=== PATIENT | female | born 1945 | race Caucasian/White ===

== ENCOUNTER → 2019-08-06 15:09 | Outpatient (CLI) | payer MEDICARE, OTHER, SELFPAY ==
--- NOTE | ~2019-08-06 | MM_ITS ---
EXAMINATION: MM screening [facility] BI w enma HISTORY: Screening mammogram TECHNIQUE: Craniocaudal and mediolateral oblique 3-D tomosynthesis images were obtained and synthetic 2-D images were generated. CAD analysis was submitted and interpreted. COMPARISON: Comparison to multiple prior studies sequentially, with oldest reviewed study dated 10/2014. BREAST PARENCHYMAL COMPOSITION: The breasts are heterogeneously dense, which may obscure small masses . FINDINGS: There is no evidence of suspicious mass, calcification, or architectural distortion to sugg est malignancy in either breast. There has been no suspicious interval change. IMPRESSION: 1. No mammographic evidence of malignancy. 2. Recommend routine screening mammography in one year. BI-RADS Category 1: Negative Reviewed, dictated and finalized at location A.
== END ==
PROVIDERS: PCP Internal Medicine; Visit Provider Internal Medicine
DX: Z12.31 Encounter for screening mammogram for malignant neoplasm of breast (principal)
CPT/HCPCS: 77063; 77067

== ENCOUNTER → 2020-07-29 02:24 | Outpatient (CLI) | payer MEDICARE, OTHER, SELFPAY ==
[2020-07-29 22:46] LABS: SARS-CoV-2 RNA PCR Negative
== END ==
PROVIDERS: PCP Internal Medicine; Visit Provider Internal Medicine Gastroenterology
DX: Z01.812 Encounter for preprocedural laboratory examination (principal); Z20.822 Contact with and (suspected) exposure to COVID-19
CPT/HCPCS: C9803; U0003; U0005

== ENCOUNTER 2020-08-01 00:49 | Day surgery (SDC) | payer MEDICARE, OTHER, SELFPAY ==
[2020-07-21 12:05] VITALS: BMI 22.8
[2020-08-01 08:34] VITALS: BP 161/70; PULSE 64; RESP 20; TEMP 36.6; O2SAT 100; BMI 23.3
[2020-08-01] MEDS: LACTATED RINGERS 1,000 ML 150 ML IV CONT (08:48)
--- NOTE | 2020-08-01 09:14 | WPDANESEPPF ---
Anes - Initial Pre Proc Eval Procedure: Operation Date: 08/01/20 10:00 Proposed Procedures p Screening Colonoscopy - Parminder Buckley MD Date/Time: 08/01/20 09:14 Surgeon: Parminder Buckley MD Pre Op Diagnosis: neoplasm screening Patient Data Age: 75 Gender: F Height: 5 ft 9 in Weight: 71.5 kg Last Vital Signs Temp 36.6 C 08/01/20 08:34 Pulse 64 08/01/20 08:34 Resp 20 08/01/20 08:34 BP 161/70 H 08/01/20 08:34 Pulse Ox 100 08/01/20 08:34 Allergies Allergy/AdvReac Type Severity Reaction Status Date / Time latex Allergy Unknown Skin Verified 06/30/20 10:30 breaks out procaine AdvReac Mild Tachycardia Verified 07/21/20 12:21 Home Medications Medication Instructions Recorded Confirmed Type cetirizine 5 mg-pseudoephedrine ER 1 tablet PO Q12H 09/17/19 06/30/20 History 120 mg tablet,extended release,12hr cholecalciferol (vitamin D3) 125 125 mcg PO DAILY 09/17/19 07/21/20 History mcg (5,000 unit) capsule melatonin 10 mg capsule 10 mg PO .QHS cap 12/03/19 07/21/20 History acetaminophen 325 mg capsule 325 mg PO Q6H PRN 04/03/20 07/21/20 History ibuprofen 200 mg capsule 200 mg PO Q6H PRN 04/03/20 07/21/20 History benazepril 20 1 tablet PO DAILY #90 tablet 06/09/20 07/21/20 Rx mg-hydrochlorothiazide 25 mg tablet famotidine 20 mg tablet 20 mg PO DAILY #30 tablet 06/30/20 07/21/20 Rx gabapentin 300 mg capsule 300 mg PO DAILY cap 06/30/20 07/21/20 History sodium,potassium,mag sulfates 17.5 See Rx Instructions PO .COMPLEX 07/04/20 Rx gram-3.13 gram-1.6 gram oral soln #354 ml Patient hx anesthesia problems: none Family hx anesthesia problems: none PMFSH Past Medical History Medical History Allergies Anemia Chicken pox Constipation Hernia Rectal History of stillbirth Hypertension Melanoma Multiple sclerosis Osteoarthritis Prediabetes Sciatica Vitamin deficiency Surgical History Surgical History H/O: hysterectomy Previous back surgery Spinal decompression surgery 04/2019 Family History Family History Father Hypertension Mother Family history of malignant neoplasm of ovary Sibling H/O gastric bypass Social History Social History Smoking status: Never smoker Second hand tobacco smoke exposure: No Alcohol intake: current Substance use: never Gender identity (if verbalized by the patient): Female Anes - Eval Final PreProcedure Day of Procedure 08/01/20 09:14 Patient weight: normal Heart: regular rate and rhythm Lungs: clear to auscultation Airway: Mallampati scale class II Neurological: alert and oriented Last oral intake: >/= 8 hours ASA classification: III Emergent: no Anesthetic plan: proceed Anesthesia type and monitoring: general GIVS and standard monitoring Informed Consent: The patient's anesthetic plan and its attendant risks and benefits were discussed with the patient/family/POA. Questions were solicited and answers provided to the satisfaction of the patient/family/POA.
--- NOTE | 2020-08-01 09:37 | PM.HPGS ---
History of Present Illness History of Present Illness Consent: Risks, benefits, and alternatives have been discussed and questions answered. Patient agrees to proceed with procedure. Chief complaint: neoplasm screening Narrative: June Razo is a 75 year old female here for screening colonoscopy, last one 10 years ago. Also constipation but almost resolved after she discontinued gabapentin. Review of Systems Constitutional: Constitutional: Denies headache(s) and Denies weakness Eyes: Eyes: Denies blurry vision ENT: Reports Normal hearing present, Denies headache(s) and Denies neck pain Cardiovascular: Cardiovascular: Denies chest pain and Denies dyspnea Respiratory: Respiratory: Denies dyspnea Gastrointestinal: Gastrointestinal: Reports no additional gastrointestinal complaints Genitourinary: Genitourinary: Denies dysuria Musculoskeletal: Musculoskeletal: Denies neck pain Integumentary/Breasts: Skin/Breast: Denies dry skin Neurologic: Reports Normal hearing present, Denies headache(s) and Denies weakness Psychiatric: Psychiatric: Denies anxiety Endocrine: Endocrine: Denies change in body appearance Hematologic/Lymphatic: Hematologic/Lymphatic: Denies easy bleeding Allergic/Immunologic: Allergic/Immunologic: Denies urticaria PMFSH Past Medical History Medical History Allergies Anemia Chicken pox Constipation Hernia Rectal History of stillbirth Hypertension Melanoma Multiple sclerosis Osteoarthritis Prediabetes Sciatica Vitamin deficiency Surgical History Surgical History H/O: hysterectomy Previous back surgery Spinal decompression surgery 04/2019 Family History Family History Father Hypertension Mother Family history of malignant neoplasm of ovary Sibling H/O gastric bypass Social History Social History Smoking status: Never smoker Second hand tobacco smoke exposure: No Alcohol intake: current Substance use: never Gender identity (if verbalized by the patient): Female Meds Home Medications and Allergies Home Medications Medication Instructions Recorded Confirmed Type cetirizine 5 mg-pseudoephedrine ER 1 tablet PO Q12H 09/17/19 06/30/20 History 120 mg tablet,extended release,12hr cholecalciferol (vitamin D3) 125 125 mcg PO DAILY 09/17/19 07/21/20 History mcg (5,000 unit) capsule melatonin 10 mg capsule 10 mg PO .QHS cap 12/03/19 07/21/20 History acetaminophen 325 mg capsule 325 mg PO Q6H PRN 04/03/20 07/21/20 History ibuprofen 200 mg capsule 200 mg PO Q6H PRN 04/03/20 07/21/20 History benazepril 20 1 tablet PO DAILY #90 tablet 06/09/20 07/21/20 Rx mg-hydrochlorothiazide 25 mg tablet famotidine 20 mg tablet 20 mg PO DAILY #30 tablet 06/30/20 07/21/20 Rx gabapentin 300 mg capsule 300 mg PO DAILY cap 06/30/20 07/21/20 History sodium,potassium,mag sulfates 17.5 See Rx Instructions PO .COMPLEX 07/04/20 Rx gram-3.13 gram-1.6 gram oral soln #354 ml Allergies Allergy/AdvReac Type Severity Reaction Status Date / Time latex Allergy Unknown Skin Verified 06/30/20 10:30 breaks out procaine AdvReac Mild Tachycardia Verified 07/21/20 12:21 Vital Signs Vital Signs - 24 hr 08/01/20 08:34 Temperature 97.8 F Pulse Rate 64 Respiratory Rate 20 Blood Pressure 161/70 H Pulse Oximetry 100 Exam Const: General: comfortable and no acute distress HENMT: General nose exam: Normal nares present Eyes: General: appearance normal, both eyes and all related structures Neck: Neck: no JVD Resp: Auscultation: clear to auscultation bilaterally Cardio: Rate: regular rate Rhythm: regular rhythm GI: Inspection: non-distended GI Palp: Yes Soft to palpation Skin: General skin exam: normal color Neuro: General: gait n
[2020-08-01 10:16] VITALS: BP 123/68; PULSE 57; RESP 20; O2SAT 100
[2020-08-01 10:26] VITALS: BP 132/78; PULSE 58; RESP 13; O2SAT 100
[2020-08-01 10:36] VITALS: BP 153/76; PULSE 50; RESP 14; O2SAT 100
== END 2020-08-01 10:44 | disposition home or self-care (01) ==
PROVIDERS: PCP Internal Medicine; Visit Provider Internal Medicine Gastroenterology
PROC: 0DJD8ZZ Inspection of Lower Intestinal Tract, Via Natural or Artificial Opening Endoscopic (ICD-10-PCS; CPT 45378; principal; 2020-08-01 10:00)
DX: Z12.11 Encounter for screening for malignant neoplasm of colon (principal); D12.0 Benign neoplasm of cecum; K63.5 Polyp of colon; K63.89 Other specified diseases of intestine; K64.8 Other hemorrhoids; I10 Essential (primary) hypertension; G35 Multiple sclerosis; R73.03 Prediabetes; M19.90 Unspecified osteoarthritis, unspecified site
CPT/HCPCS: 45385; 88305; J2704; J7120

== ENCOUNTER → 2020-08-19 12:51 | Outpatient (CLI) | payer MEDICARE, OTHER, SELFPAY ==
--- NOTE | ~2020-08-19 | MM_ITS ---
EXAMINATION: MM screening [facility] BI w enma HISTORY: Screening mammogram TECHNIQUE: Craniocaudal and mediolateral oblique 3-D tomosynthesis images were obtained and synthetic 2-D images were generated. CAD analysis was submitted and interpreted. COMPARISON: 08/06/2019, 04/18/2018, 10/06/2016, 09/22/2016 BREAST PARENCHYMAL COMPOSITION: There are scattered areas of fibroglandular density. FINDINGS: There is no evidence of suspicious mass, calcification, or architectural distortion to sugg est malignancy in either breast. There has been no suspicious interval change. IMPRESSION: 1. No mammographic evidence of malignancy. 2. Recommend routine screening mammography in one year. BI-RADS Category 1: Negative Reviewed, dictated and finalized at location A.
== END ==
PROVIDERS: PCP Internal Medicine; Visit Provider Student in an Organized Health Care Education/Training Program
DX: Z12.31 Encounter for screening mammogram for malignant neoplasm of breast (principal)
CPT/HCPCS: 77063; 77067

== ENCOUNTER 2020-12-13 10:07 | Emergency (ER) | payer MEDICARE, OTHER, SELFPAY ==
--- NOTE | 2020-12-13 10:13 | ED.FEMALEGU ---
HPI - Female Genitourinary General Chief complaint: Urogenital-Female Stated complaint: UTI Source: patient and RN notes reviewed Mode of arrival: ambulatory History of Present Illness HPI Narrative: This is a 75-year-old male that presented herself to urgent care today with complaints of painful urination. According to patient for the last 3 to 4 days she has been having painful urination she does have a history of urinary tract infections. According to patient due to her MS she is more prone to having UTIs. The patient denies Suprapubic tenderness, hematuria thank you, vaginal discharge SOB, CP, palpitation, extremity numbness, lightheadedness, dizziness, constipation, diarrhea, chills, or fever. MD elicited complaint: UTI Related Data Home Medications Medication Instructions Recorded Confirmed cetirizine 5 mg-pseudoephedrine ER 1 tablet PO Q12H 09/17/19 10/14/20 120 mg tablet,extended release,12hr cholecalciferol (vitamin D3) 125 125 mcg PO DAILY 09/17/19 10/14/20 mcg (5,000 unit) capsule melatonin 10 mg capsule 10 mg PO .QHS cap 12/03/19 10/14/20 acetaminophen 325 mg capsule 325 mg PO Q6H PRN 04/03/20 10/14/20 baclofen 20 mg tablet 20 mg PO DAILY 10/14/20 10/14/20 Allergies Allergy/AdvReac Type Severity Reaction Status Date / Time latex Allergy Mild Skin Verified 12/13/20 10:12 breaks out procaine AdvReac Severe Tachycardia Verified 12/13/20 10:12 Review of Systems Review of Systems: Narrative: A 14 organ system Review of Systems was performed and pertinent positives included in the HPI, otherwise remaining ROS is negative. All systems reviewed & are unremarkable except as noted in HPI and below PMFSH Past Medical History Medical History Allergies Anemia Chicken pox Colon cancer screening Constipation Hernia Rectal History of stillbirth Hypertension Melanoma Multiple sclerosis Osteoarthritis Prediabetes Sciatica Vitamin deficiency Surgical History Surgical History H/O: hysterectomy Previous back surgery Spinal decompression surgery 04/2019 Family History Family History Father Hypertension Mother Family history of malignant neoplasm of ovary Sibling H/O gastric bypass Social History Social History Smoking status: Never smoker Second hand tobacco smoke exposure: No Alcohol intake: current Alcohol use details: occasionally Substance use: never Gender identity (if verbalized by the patient): Female Exam Narrative: Exam Narrative: GENERAL: This is a well-nourished, well-developed patient, in no apparent distress. HEAD: normocephalic, atraumatic. EYES: PERRL. Sclera clear/white. Vision is grossly intact. EARS: External ears normal, auditory canals clear and without drainage, TMs normal without perforation. Hearing grossly intact. NOSE: External nose normal with no obvious nasal discharge, nares without redness, no rhinorrhea. THROAT: Mucous membranes moist, posterior pharynx clear. NECK: Neck supple, non-tender without lymphadenopathy, masses or thyromegaly. CARDIOVASCULAR: Regular rate and rhythm without murmurs, gallops, or rubs. RESPIRATORY: Clear to auscultation. Breath sounds equal bilaterally. No wheezes, rales, or rhonchi. GASTROINTESTINAL: Abdomen soft, non-tender, nondistended. Bowel sounds are active. No hepato-splenomegaly, or palpable masses. No guarding. SKIN: warm, intact with no suspicious lesions or rash, good texture and turgor. NEURO: awake, alert, and oriented to person, place and time. There were no obvious focal neurologic abnormalities. Steady gait EXTREMITIES: Normal range of motion. No edema. No calf tenderness. Negative Homans sign bilaterally. BACK: Nontender without deformity or crepitance. No flank tenderness. Course Cou
[2020-12-13 10:17] VITALS: BP 167/74; PULSE 56; RESP 15; TEMP 36.6; O2SAT 100
== END 2020-12-13 10:45 | disposition home or self-care (01) ==
PROVIDERS: Emergency Provider Nurse Practitioner; PCP Internal Medicine
DX: N39.0 Urinary tract infection, site not specified (principal); D64.9 Anemia, unspecified; I10 Essential (primary) hypertension; M19.90 Unspecified osteoarthritis, unspecified site; R73.03 Prediabetes; G35 Multiple sclerosis; Z85.820 Personal history of malignant melanoma of skin
CPT/HCPCS: 81003; 87086; 87147; 87181; 87186; 99213; G0463

== ENCOUNTER 2020-12-15 15:55 | Inpatient (IN) | payer MEDICARE, OTHER, SELFPAY ==
--- NOTE | ~2020-12-15 | US_ITS ---
EXAMINATION: US abdomen limited DATE: 12/16/2020 14:17 INDICATION: Abnormal liver function tests TECHNIQUE: Multiple grayscale and Doppler ultrasound images of the abdomen were obtained. COMPARISON: None FINDINGS: The pancreatic head and body are normal in appearance. The pancreatic tail is not visualized. The vi sualized proximal to mid aorta and inferior vena cava are normal. Liver has normal echogenicity and c ontour, with a smooth surface. No liver lesion identified. No intrahepatic biliary duct dilation susp ected. Portal venous flow was seen in the hepatopetal, normal direction and has normal Doppler wavefo rm. There are multiple shadowing gallstones within the otherwise normal-appearing gallbladder with no dilation or abnormal gallbladder wall thickening. Sonographic Rendon sign was reported as negative b y the executive pilot.The common bile duct measures 4 mm in diameter tapering in the distal duct with no evident choledocholithiasis. IMPRESSION: 1. Cholelithiasis with no findings to suggest acute cholecystitis 2. Otherwise normal right upper quadrant ultrasound with no intra or extra hepatic biliary ductal dil ation. Reviewed, dictated and finalized at location A. IMPRESSION: 1. Cholelithiasis with no findings to suggest acute cholecystitis 2. Otherwise normal right upper quadrant ultrasound with no intra or extra hepa tic biliary ductal dilation.
[2020-12-15 15:59] VITALS: BP 199/91; PULSE 80; RESP 18; TEMP 38.1; O2SAT 100
[2020-12-15 16:15] LABS: Basophils Percent Auto 0.6 % (0.2-1.2); Eosinophils Percent Auto 0.3 % (0-4.4); Hematocrit 34.4 % (37.0-47.0); Hemoglobin 11.5 g/dL (12.0-15.0); Immature Granulocyte Absolute 0.02 K/mm3 (0.00-0.031); Immature Granulocyte Percent A 0.6 % (0-0.5); Lymphocytes Absolute Auto 0.19 K/mm3 (0.9-3.2); Lymphocytes Percent Auto 5.5 % (18.3-44.2); Mean Corpuscular HGB Conc 33.4 g/dl (32-36); Mean Corpuscular Volume 89.8 fl (80-100); Monocytes Absolute Auto 0.2 K/mm3 (0.1-0.6); Monocytes Percent Auto 4.4 % (2.6-8.5); Neutrophils Percent Auto 88.6 % (45.5-73.1); Platelet Count Result 154 k/mm3 (150-375); Red Blood Count 3.83 M/mm3 (4.2-5.4); Red Cell Distribution Width 12.2 % (11.5-14.5); White Blood Count 3.4 K/mm3 (4.5-10.0)
[2020-12-15 16:25] LABS: Alanine Aminotransferase 209 U/L (4-35); Alkaline Phosphatase 224 U/L (38-126); Anion Gap 9 mmol/L (8-16); Aspartate Amino Transferase 292 U/L (14-36); Bilirubin,Total 0.6 mg/dL (0.2-1.3); Blood Urea Nitrogen 23 mg/dL (7-17); Calcium 8.6 mg/dL (8.4-10.2); Carbon Dioxide 25 mmol/L (22-30); Chloride 89 mmol/L (98-107); Estimated CRCL calculation 45 ml/min; Estimated Glomerular Filt Rate 54; Glucose 112 mg/dL (65-110); Sodium 123 mmol/L (137-145)
[2020-12-15 16:35] LABS: Add Urine Microscopic? YES; Appearance Urine Clear (Clear); Bacteria Urine 1+ /hpf; Bilirubin Urine Negative (Negative); Blood Urine Negative (Negative); Color Urine Amber (Yellow); Glucose Urine UA Negative (Negative); Ketones Urine Negative (Negative); Leukocyte Esterase Ur 2+ LEU/UL (Negative); Mucus Urine Rare /lpf; Nitrate Urine Positive (Negative); Protein Urine 1+ mg/dL (Negative); Specific Grav Ur 1.017 (1.001-1.035); Squamous Epithelial Cell Urine Many /hpf (Few); WBC Urine 31-50 /hpf
[2020-12-15 16:46] LABS: Potassium 3.9 mmol/L (3.4-5.0)
[2020-12-15] MEDS: SODIUM CHLORIDE 0.9% IV 1,000 ML 999 ML IV CONT (21:03)
--- NOTE | 2020-12-15 21:34 | ED.FEVER ---
HPI - Fever General Chief Complaint: Urogenital-Female Stated Complaint: UTI Time Seen by Provider: 12/15/20 20:26 History of Present Illness HPI Narrative: Patient is a 75-year-old female who presents ER with fever and weakness and fatigue. Ongoing for last 3 to 4 days. Was diagnosed with a urinary tract infection and prescribed nitrofurantoin. Patient has not improving. Patient is reporting mild frontal headache as well as some nausea. Related Data Home Medications Medication Instructions Recorded Confirmed cetirizine 5 mg-pseudoephedrine ER 1 tablet PO Q12H 09/17/19 12/15/20 120 mg tablet,extended release,12hr cholecalciferol (vitamin D3) 125 125 mcg PO DAILY 09/17/19 12/15/20 mcg (5,000 unit) capsule melatonin 10 mg capsule 10 mg PO .QHS cap 12/03/19 12/15/20 acetaminophen 325 mg capsule 325 mg PO Q6H PRN 04/03/20 12/15/20 baclofen 20 mg tablet 20 mg PO DAILY 10/14/20 12/15/20 Allergies Allergy/AdvReac Type Severity Reaction Status Date / Time latex Allergy Mild Skin Verified 12/15/20 20:38 breaks out procaine AdvReac Severe Tachycardia Verified 12/15/20 20:38 Review of Systems Review of Systems: All systems reviewed & are unremarkable except as noted in HPI and below Constitutional: Constitutional: Reports chills, Reports fatigue and Reports fever(s) ENT: Denies nasal congestion and Denies sore throat Gastrointestinal: Gastrointestinal: Denies abdominal pain, Reports nausea and Denies vomiting Genitourinary: Genitourinary: Reports nocturia, Reports dysuria and Denies flank pain PMFSH Past Medical History Medical History Allergies Anemia Chicken pox Colon cancer screening Constipation Hernia Rectal History of stillbirth Hypertension Melanoma Multiple sclerosis Osteoarthritis Prediabetes Sciatica Vitamin deficiency Surgical History Surgical History H/O: hysterectomy Previous back surgery Spinal decompression surgery 04/2019 Family History Family History Father Hypertension Mother Family history of malignant neoplasm of ovary Sibling H/O gastric bypass Social History Social History (Reviewed 10/14/20 @ 11:03 by Alice Osullivan [facility] Smoking status: Never smoker Second hand tobacco smoke exposure: No Alcohol intake: current Alcohol use details: occasionally Substance use: never Gender identity (if verbalized by the patient): Female Exam Narrative: Exam Narrative: GENERAL: Well-appearing, well-nourished, and in no acute distress. HEAD: Normocephalic, atraumatic. EYES: PERRL and EOMI. CHEST: Clear to auscultation. No respiratory distress. HEART: Regular rate and rhythm. Normal peripheral pulses. ABDOMEN: Soft, nontender, nondistended. No CVA tenderness EXTREMITIES: Normal range of motion. No edema. SKIN: Warm, dry, no rash. NEURO: Alert and oriented x3. PSYCH: Normal mood and affect. Course TRAINING ASSISTANT/PA Physician Supervision Patient started on IV vancomycin given urine culture showing Enterococcus species sensitive only to Macrobid, vancomycin, and ampicillin. Patient is having a mild frontal headache so she will be given Zofran she is also nauseated will receive some Zofran. Blood pressure down to 172/88 without intervention. Vital Signs Vital signs: Vital Signs Temperature 100.5 F H 12/15/20 15:59 Pulse Rate 80 12/15/20 15:59 Respiratory Rate 18 12/15/20 15:59 Blood Pressure 199/91 H 12/15/20 15:59 Pulse Oximetry 100 12/15/20 15:59 Temperature 100.5 F H 12/15/20 15:59 Pulse Rate 88 12/15/20 21:37 Respiratory Rate 20 12/15/20 21:37 Blood Pressure 172/88 H 12/15/20 21:37 Pulse Oximetry 99 12/15/20 21:37 MDM - Fever Lab Data Result diagrams: 12/15/20 16:06 12/15/20 16:06 Labs: Lab Results 12/15/20 12/15/20
[2020-12-15 21:37] VITALS: BP 172/88; PULSE 88; RESP 20; O2SAT 99
[2020-12-15] MEDS: ONDANSETRON INJ 4 MG/2 ML VIAL IV PUSH (22:11)
--- NOTE | 2020-12-15 22:40 | PM.IMHP ---
H&P: HPI History of Present Illness Date/Time: 12/15/20 22:40 Chief Complaint: dysuria Narrative: this is a 75-year-old female with past medical history significant for hypertension, GERD. patient recently went to the urgent care due to pain and burning sensation with urination this started about 5 days ago on but did not go to urgent care until Tuesday she was found to have a urinary tract infection and sent home with antibiotics however patient comes back today to emergency room due to fevers chills worsening dysuria poor appetite some nausea but no vomiting repeat urinalysis showed great number of wbc's in the urine and a urine culture from prior urinalysis has grown enterococci. Patient denies any diarrhea any vomiting has pain and discomfort in the pelvic area. Preliminary work up was significant for abnormal LFTs and alk phos as well. Patient states that she has been in her usual state of health prior to these. Review of Systems Review of Systems: Narrative: fevers chills pain a burning with urination Constitutional: Constitutional: Reports chills, Reports fever(s), Denies night sweats, Reports poor appetite and Denies weakness Eyes: Eyes: Denies change in vision ENT: Denies dysphagia, Denies vertigo, Denies dizziness, Denies nasal congestion, Denies nasal discharge, Denies nasal obstruction and Denies odynophagia Cardiovascular: Cardiovascular: Denies irregular heart rhythm, Denies lightheadedness, Denies radiating jaw, neck or arm pain, Denies palpitations, Denies dyspnea, Denies dyspnea on exertion and Denies orthopnea Respiratory: Respiratory: Denies cough and Denies dyspnea Gastrointestinal: Gastrointestinal: Denies diarrhea, Reports nausea and Denies vomiting Genitourinary: Genitourinary: Reports no additional female genitourinary complaints, Reports dysuria and Reports pelvic pain Musculoskeletal: Musculoskeletal: Denies back pain, Denies arthralgias and Denies muscle weakness Integumentary/Breasts: Skin/Breast: Reports system reviewed and no additional complaints, except as docu Neurologic: Reports system reviewed and no additional complaints, except as documented Psychiatric: Psychiatric: Reports no additional psychiatric complaints Endocrine: Endocrine: Reports no additional endocrine complaints Hematologic/Lymphatic: Hematologic/Lymphatic: Reports no additional hematologic/lymphatic complaints Allergic/Immunologic: Allergic/Immunologic: Reports no additional allergic/immunologic complaints PMFSH Past Medical History Medical History Allergies Anemia Chicken pox Colon cancer screening Constipation Hernia Rectal History of stillbirth Hypertension Melanoma Multiple sclerosis Osteoarthritis Prediabetes Sciatica Vitamin deficiency Surgical History Surgical History H/O: hysterectomy Previous back surgery Spinal decompression surgery 04/2019 Family History Family History Father Hypertension Mother Family history of malignant neoplasm of ovary Sibling H/O gastric bypass Social History Social History Smoking status: Never smoker Second hand tobacco smoke exposure: No Alcohol intake: current Alcohol use details: occasionally Substance use: never Gender identity (if verbalized by the patient): Female Meds Home Medications and Allergies Home Medications Medication Instructions Recorded Confirmed Type cetirizine 5 mg-pseudoephedrine ER 1 tablet PO Q12H 09/17/19 12/15/20 History 120 mg tablet,extended release,12hr cholecalciferol (vitamin D3) 125 125 mcg PO DAILY 09/17/19 12/15/20 History mcg (5,000 unit) capsule melatonin 10 mg capsule 10 mg PO .QHS cap 12/03/19 12/15/20 History acetaminophen 325 mg capsule 325 mg PO Q6H PRN 04/03/20 0
[2020-12-15 23:10] VITALS: BP 124/68; PULSE 82; RESP 20; TEMP 36.9; O2SAT 97; BMI 23.0
--- NOTE | 2020-12-15 23:17 | ADMGEN ---
This patient, June Razo, was admitted to [facility] Surg Room 313-01. Patient/family oriented to hospital policies and general routines including ID bracelet, bed and alarms, visiting hours, pain management, procedures, bathroom and other care routines, personal items, smoking policy, room service/diet, and visiting hours. Information on how to activate the Rapid Response Team has been discussed. Patient/Family are encouraged to report perceived risks to care and to ask questions if they do not understand what they are told or what they should do.
[2020-12-15] MEDS: MELATONIN 5 MG TABLET 10 MG PO (23:58)
[2020-12-16 06:00] VITALS: BP 134/62; PULSE 71; RESP 20; TEMP 37.4; O2SAT 100
[2020-12-16 10:15] VITALS: O2SAT 99
--- NOTE | 2020-12-16 10:24 | P.PNIM_ITS ---
Progress Note: A&P Assessment and Plan (1) Acute UTI: Code(s): N39.0 - Urinary tract infection, site not specified Status: Acute Assessment and Plan: * signs and symptoms of urinary tract infection Urgency and frequency * urinalysis shows positive nitrates, leukocyte esterase blood 2+, white blood cells 30-51 and bacteria 1+. * Urine culture from 12/13/2020 had growth of Enterococcus species. * new Urine culture is pending * currently on vancomycin 1000 mg Q 24 * Strict I&O (2) Abnormal LFTs: Code(s): R94.5 - Abnormal results of liver function studies Status: Acute Assessment and Plan: * AST 292, ALT is 209 * right upper quadrant ultrasound * might consider CT of the abdomen (3) Hyponatremia: Code(s): E87.1 - Hypo-osmolality and hyponatremia Status: Acute Assessment and Plan: * sodium was 123 chloride was 89 * will hold hydrochlorothiazide for now * BNP ordered and pending * BUN creatinine are normal at 23/1 * might consider giving her some diuretics if she looks fluid overloaded. (4) Hypertension: Qualifiers: Hypertension type: essential hypertension Qualified Code(s): I10 - Essential (primary) hypertension Code(s): I10 - Essential (primary) hypertension Status: Acute Assessment and Plan: * Blood pressure is 134/62 * will continue home Benazepril/HCTZ 20/25mg PO Daily when BNP comes back * trend blood pressures * adjust medications as needed (5) Chronic kidney disease: Qualifiers: Chronic kidney disease stage: unspecified stage Qualified Code(s): N18.9 - Chronic kidney disease, unspecified Code(s): N18.9 - Chronic kidney disease, unspecified Status: Acute Assessment and Plan: * BUN/ creatinine 23/1 * patient's baseline looks to be about 1-1.1 * currently patient is at baseline * GFR is 54 little low * will trend labs * labs in the morning (6) Multiple sclerosis: Code(s): G35 - Multiple sclerosis Status: Acute Assessment and Plan: * patient has had multiple sclerosis for 31 years * will continue monitor * PT/OT (7) Leukocytopenia: Code(s): D72.819 - Decreased white blood cell count, unspecified Status: Acute Assessment and Plan: * white blood cell count is 3.4 today * patient stated that she normally has is low white count * will get CBC with Sam DIff to calculate the ANC Time Spent With Patient Time with patient: 25 - 35 minutes Subjective Date/time seen: 12/16/20 08:45 Interval history: Patient is a 75 year old female with a past medical history of MS, frequent UTIs, HTN, and GERD who complains of urinary dysfunction, weakness, and fatigue. Patient stated that this all started about about 3-5 days ago. She went to a fast track and was given Bactrim. She stated that she just was not improving. At that time it looks like the urine culture grew enterococcus species which Bactrim is susceptible. Currently she did say that he symptoms are improving, however, she still has urgency and frequency. She also stated t hat she has a headache that started this morning. She did try some caffeine which did not help. She admitted to sweats overnight, and she has been getting lightheaded and dizzy when she tries to get up. She does deny chest pain, shortness of breath, nausea, vomiting, diarrhea, constipation. Patient does state she is very weak and
--- NOTE | 2020-12-16 10:24 | PM.IMPN ---
Progress Note: A&P Assessment and Plan (1) Acute UTI: Code(s): N39.0 - Urinary tract infection, site not specified Status: Acute Assessment and Plan: signs and symptoms of urinary tract infection Urgency and frequency urinalysis shows positive nitrates, leukocyte esterase blood 2+, white blood cells 30-51 and bacteria 1+. Urine culture from 12/13/2020 had growth of Enterococcus species. new Urine culture is pending currently on vancomycin 1000 mg Q 24 Strict I&O (2) Abnormal LFTs: Code(s): R94.5 - Abnormal results of liver function studies Status: Acute Assessment and Plan: AST 292, ALT is 209 right upper quadrant ultrasound might consider CT of the abdomen (3) Hyponatremia: Code(s): E87.1 - Hypo-osmolality and hyponatremia Status: Acute Assessment and Plan: sodium was 123 chloride was 89 will hold hydrochlorothiazide for now BNP ordered and pending BUN creatinine are normal at 23/1 might consider giving her some diuretics if she looks fluid overloaded. (4) Hypertension: Qualifiers: Hypertension type: essential hypertension Qualified Code(s): I10 - Essential (primary) hypertension Code(s): I10 - Essential (primary) hypertension Status: Acute Assessment and Plan: Blood pressure is 134/62 will continue home Benazepril/HCTZ 20/25mg PO Daily when BNP comes back trend blood pressures adjust medications as needed (5) Chronic kidney disease: Qualifiers: Chronic kidney disease stage: unspecified stage Qualified Code(s): N18.9 - Chronic kidney disease, unspecified Code(s): N18.9 - Chronic kidney disease, unspecified Status: Acute Assessment and Plan: BUN/ creatinine 23/ patient's baseline looks to be about 1-1.1 currently patient is at baseline GFR is 54 little low will trend labs labs in the morning (6) Multiple sclerosis: Code(s): G35 - Multiple sclerosis Status: Acute Assessment and Plan: patient has had multiple sclerosis for 31 years will continue monitor PT/OT (7) Leukocytopenia: Code(s): D72.819 - Decreased white blood cell count, unspecified Status: Acute Assessment and Plan: white blood cell count is 3.4 today patient stated that she normally has is low white count will get CBC with Sam DIff to calculate the ANC Time Spent With Patient Time with patient: 25 - 35 minutes Subjective Date/time seen: 12/16/20 08:45 Interval history: Patient is a 75 year old female with a past medical history of MS, frequent UTIs, HTN, and GERD who complains of urinary dysfunction, weakness, and fatigue. Patient stated that this all started about about 3-5 days ago. She went to a fast track and was given Bactrim. She stated that she just was not improving. At that time it looks like the urine culture grew enterococcus species which Bactrim is susceptible. Currently she did say that he symptoms are improving, however, she still has urgency and frequency. She also stated that she has a headache that started this morning. She did try some caffeine which did not help. She admitted to sweats overnight, and she has been getting lightheaded and dizzy when she tries to get up. She does deny chest pain, shortness of breath, nausea, vomiting, diarrhea, constipation. Patient does state she is very weak and fatigued. And stated her last bowel movement was 12/15/2020. I did talk to the patient about her white blood cell count as well she said that she has had history of low counts however has not sought any treatment or even followed up with it. patient also stated that she was worried about her renal function which I explained to her was normal at this time. She stated that she does have lots of UTIs and that she is currently going through pelvic floor training which has teresa
[2020-12-16 11:18] LABS: NT Pro B Type Natriuretic Pept 1450 pg/mL (5-100)
[2020-12-16 14:00] VITALS: BP 118/67; PULSE 73; RESP 16; TEMP 36.8; O2SAT 99
[2020-12-16] MEDS: FAMOTIDINE 20 MG TABLET PO (15:00)
[2020-12-16] MEDS: BUMETANIDE INJ 1 MG/4 ML VIAL 2 MG IV PUSH (15:01)
[2020-12-16] MEDS: BACLOFEN 10 MG TABLET PO ×2 (15:01→20:29)
[2020-12-16] MEDS: MELATONIN 5 MG TABLET 10 MG PO (20:28)
[2020-12-16 22:00] VITALS: BP 149/79; PULSE 86; RESP 16; TEMP 36.7; O2SAT 100
[2020-12-17 06:00] VITALS: BP 139/93; PULSE 78; RESP 16; TEMP 35.9; O2SAT 100
[2020-12-17 06:39] LABS: Basophils Percent Auto 0.8 % (0.2-1.2); Eosinophils Absolute Auto 0.1 K/mm3 (0-0.3); Eosinophils Percent Auto 3.5 % (0-4.4); Hematocrit 35.1 % (37.0-47.0); Hemoglobin 12.1 g/dL (12.0-15.0); Immature Granulocyte Absolute 0.02 K/mm3 (0.00-0.031); Immature Granulocyte Percent A 0.5 % (0-0.5); Lymphocytes Absolute Auto 1.27 K/mm3 (0.9-3.2); Lymphocytes Percent Auto 34.5 % (18.3-44.2); Mean Corpuscular HGB Conc 34.5 g/dl (32-36); Mean Corpuscular Volume 87.1 fl (80-100); Mean Platelet Volume 9.6 fl (7.4-10.4); Monocytes Absolute Auto 0.7 K/mm3 (0.1-0.6); Monocytes Percent Auto 18.5 % (2.6-8.5); Neutrophils Absolute Auto 1.6 K/mm3 (1.3-6.7); Neutrophils Percent Auto 42.2 % (45.5-73.1); Platelet Count Result 212 k/mm3 (150-375); Red Blood Count 4.03 M/mm3 (4.2-5.4); White Blood Count 3.7 K/mm3 (4.5-10.0)
[2020-12-17 06:53] LABS: Alanine Aminotransferase 122 U/L (4-35); Albumin Level 3.8 g/dL (3.5-5.1); Alkaline Phosphatase 251 U/L (38-126); Anion Gap 10 mmol/L (8-16); Aspartate Amino Transferase 95 U/L (14-36); Bilirubin,Total 0.4 mg/dL (0.2-1.3); Blood Urea Nitrogen 20 mg/dL (7-17); Calcium 9.4 mg/dL (8.4-10.2); Carbon Dioxide 30 mmol/L (22-30); Chloride 87 mmol/L (98-107); Estimated CRCL calculation 45 ml/min; Estimated Glomerular Filt Rate 54; Glucose 93 mg/dL (65-110); Magnesium 1.4 mg/dL (1.6-2.3); Potassium 3.7 mmol/L (3.4-5.0); Sodium 127 mmol/L (137-145)
[2020-12-17] MEDS: FAMOTIDINE 20 MG TABLET PO (09:24)
[2020-12-17] MEDS: lisinopriL 20 MG TABLET PO (09:24)
[2020-12-17] MEDS: hydroCHLOROthiazide 25 MG TABLET PO (09:24)
[2020-12-17 09:26] VITALS: O2SAT 97
[2020-12-17] MEDS: DOCUSATE SODIUM 100 MG CAPSULE PO (11:27)
[2020-12-17] MEDS: MAGNESIUM SULF 4 GM/WATER100ML 4 GM/100 ML BAG IVPB (11:27)
[2020-12-17] MEDS: BACLOFEN 10 MG TABLET PO (13:28)
[2020-12-17 14:00] VITALS: BP 115/72; PULSE 77; RESP 16; TEMP 36.3; O2SAT 100
--- NOTE | 2020-12-17 14:16 | P.DS_ITS ---
DS: Admitting Diagnosis Admitting Diagnosis urinary tract infection DS: Discharge Diagnosis Discharge Diagnosis (1) Acute UTI: Code(s): N39.0 - Urinary tract infection, site not specified Status: Acute Assessment and Plan: * signs and symptoms of urinary tract infection Urgency and frequency * urinalysis shows positive nitrates, leukocyte esterase blood 2+, white blood cells 30-51 and bacteria 1+. * Urine culture from 12/13/2020 had growth of Enterococcus species. * new Urine culture is pending * currently on vancomycin 1000 mg Q 24 * Strict I&O patient will be sent home with ampicillin p.o. (2) Abnormal LFTs: Code(s): R94.5 - Abnormal results of liver function studies Status: Acute Assessment and Plan: * AST 292, ALT is 209 * right upper quadrant ultrasound * might consider CT of the abdomen LFTs are trending down with AST being 95 and ALT being 122 today (3) Hyponatremia: Code(s): E87.1 - Hypo-osmolality and hyponatremia Status: Acute Assessment and Plan: * sodium was 123 chloride was 89 * will hold hydrochlorothiazide for now * BNP ordered and pending * BUN creatinine are normal at 23/ * might consider giving her some diuretics if she looks fluid overloaded. this is a chronic finding however the patient's sodium level today is 127 (4) Hypertension: Qualifiers: Hypertension type: essential hypertension Qualified Code(s): I10 - Essential (primary) hypertension Code(s): I10 - Essential (primary) hypertension Status: Acute Assessment and Plan: * Blood pressure is 134/62 * will continue home Benazepril/HCTZ 20/25mg PO Daily when BNP comes back * trend blood pressures * adjust medications as needed blood pressures been stable in is currently at 139/93. (5) Chronic kidney disease: Qualifiers: Chronic kidney disease stage: unspecified stage Qualified Code(s): N18.9 - Chronic kidney disease, unspecified Code(s): N18.9 - Chronic kidney disease, unspecified Status: Acute Assessment and Plan: * BUN/ creatinine 23/ * patient's baseline looks to be about 1-1.1 * currently patient is at baseline * GFR is 54 little low * will trend labs * labs in the morning BUN and creatinine have remained stable at 20 and 1 (6) Multiple sclerosis: Code(s): G35 - Multiple sclerosis Status: Acute Assessment and Plan: * patient has had multiple sclerosis for 31 years * will continue monitor * PT/OT (7) Leukocytopenia: Code(s): D72.819 - Decreased white blood cell count, unspecified Status: Acute Assessment and Plan: * white blood cell count is 3.4 today * patient stated that she normally has is low white count * will get CBC with Sam DIff to calculate the ANC white count has been stable at 3.7 today. DS: Summary Hospital Course Hospital Course: Patient is a 75-year-old female with a past medical history of hypertension, GERD, who recently went to urgent care due to pain and burning in sensation with urination. Patient was prescribed Macrobid with no improvement. Patient was admitted for worsening dysuria, poor appetite, weakness and fatigue. Labs upon arrival were stable with white count of 3.4 an H&H of 11.5/34.4 and a platelet count of 154. Sodium was 123 with a potassium of 3.9, BUN was 23 creatinine was 1 and glucose was 112. Today labs remained stable with a white count of
--- NOTE | 2020-12-17 14:16 | PM.DS ---
DS: Admitting Diagnosis Admitting Diagnosis urinary tract infection DS: Discharge Diagnosis Discharge Diagnosis (1) Acute UTI: Code(s): N39.0 - Urinary tract infection, site not specified Status: Acute Assessment and Plan: signs and symptoms of urinary tract infection Urgency and frequency urinalysis shows positive nitrates, leukocyte esterase blood 2+, white blood cells 30-51 and bacteria 1+. Urine culture from 12/13/2020 had growth of Enterococcus species. new Urine culture is pending currently on vancomycin 1000 mg Q 24 Strict I&O patient will be sent home with ampicillin p.o. (2) Abnormal LFTs: Code(s): R94.5 - Abnormal results of liver function studies Status: Acute Assessment and Plan: AST 292, ALT is 209 right upper quadrant ultrasound might consider CT of the abdomen LFTs are trending down with AST being 95 and ALT being 122 today (3) Hyponatremia: Code(s): E87.1 - Hypo-osmolality and hyponatremia Status: Acute Assessment and Plan: sodium was 123 chloride was 89 will hold hydrochlorothiazide for now BNP ordered and pending BUN creatinine are normal at 14/06 might consider giving her some diuretics if she looks fluid overloaded. this is a chronic finding however the patient's sodium level today is 127 (4) Hypertension: Qualifiers: Hypertension type: essential hypertension Qualified Code(s): I10 - Essential (primary) hypertension Code(s): I10 - Essential (primary) hypertension Status: Acute Assessment and Plan: Blood pressure is 134/62 will continue home Benazepril/HCTZ 20/25mg PO Daily when BNP comes back trend blood pressures adjust medications as needed blood pressures been stable in is currently at 139/93. (5) Chronic kidney disease: Qualifiers: Chronic kidney disease stage: unspecified stage Qualified Code(s): N18.9 - Chronic kidney disease, unspecified Code(s): N18.9 - Chronic kidney disease, unspecified Status: Acute Assessment and Plan: BUN/ creatinine 14/06 patient's baseline looks to be about 1-1.1 currently patient is at baseline GFR is 54 little low will trend labs labs in the morning BUN and creatinine have remained stable at 20 and 1 (6) Multiple sclerosis: Code(s): G35 - Multiple sclerosis Status: Acute Assessment and Plan: patient has had multiple sclerosis for 31 years will continue monitor PT/OT (7) Leukocytopenia: Code(s): D72.819 - Decreased white blood cell count, unspecified Status: Acute Assessment and Plan: white blood cell count is 3.4 today patient stated that she normally has is low white count will get CBC with Sam DIff to calculate the ANC white count has been stable at 3.7 today. DS: Summary Hospital Course Hospital Course: Patient is a 75-year-old female with a past medical history of hypertension, GERD, who recently went to urgent care due to pain and burning in sensation with urination. Patient was prescribed Macrobid with no improvement. Patient was admitted for worsening dysuria, poor appetite, weakness and fatigue. Labs upon arrival were stable with white count of 3.4 an H&H of 11.5/34.4 and a platelet count of 154. Sodium was 123 with a potassium of 3.9, BUN was 23 creatinine was 1 and glucose was 112. Today labs remained stable with a white count of 3.7, hemoglobin of 12.1 hematocrit of 35.1 and a platelet count of 212. sodium this morning was 112 potassium was 3.7 BUN and creatinine was 20 and 1 magnesium was 1.4. AST and ALT were also reduced and ultrasound of right upper quadrant showed a normal liver. Patient denies chest pain, shortness of breath, urinary dysfunction, nausea, vomiting, abdominal pain, numbness tingling, headaches, syncope or falls. Patient also states that she feels stronger and that
== END 2020-12-17 16:09 | disposition home or self-care (01) | DRG 690 ==
LOC: ANHED 21:40 → ANH3MEDSUR 22:43
PROVIDERS: Nurse Practitioner; Physician Assistant; Admitting Provider Internal Medicine; Emergency Provider Emergency Medicine; PCP Internal Medicine; Visit Provider Internal Medicine
DX: N39.0 Urinary tract infection, site not specified (principal); E87.1 Hypo-osmolality and hyponatremia; I10 Essential (primary) hypertension; Z85.820 Personal history of malignant melanoma of skin; G35 Multiple sclerosis; M19.90 Unspecified osteoarthritis, unspecified site; R73.03 Prediabetes; M54.30 Sciatica, unspecified side; E56.9 Vitamin deficiency, unspecified; Z98.84 Bariatric surgery status; B95.2 Enterococcus as the cause of diseases classified elsewhere; K21.9 Gastro-esophageal reflux disease without esophagitis; R94.5 Abnormal results of liver function studies; R74.8 Abnormal levels of other serum enzymes; I12.9 Hypertensive chronic kidney disease with stage 1 through stage 4 chronic kidney disease, or unspecified chronic kidney disease; N18.9 Chronic kidney disease, unspecified; D72.819 Decreased white blood cell count, unspecified
CPT/HCPCS: 36415; 76705; 80053; 81001; 81003; 83735; 83880; 85025; 87040; 87086; 87147; 87181; 87186; 96365; 96367; 96375; 99213; 99285; A9270; G0378; G0463; J0131; J2405; J3370; J3475; J7030

== ENCOUNTER 2020-12-22 08:00 | Outpatient (CLI) | payer MEDICARE, OTHER, SELFPAY ==
--- NOTE | ~2020-12-22 | CT_ITS ---
EXAMINATION: CT abdomen pelvis w con DATE: 12/22/2020 08:38 INDICATION: Dysuria, recent severe urinary tract infection. Constipation. TECHNIQUE: Computed tomography (CT) of the abdomen and pelvis was performed with 100 cc Omnipaque 350 intravenous contrast. Automated exposure control and iterative reconstruction technique were employe d. Exam dose: 645.85 mGy-cm total exam DLP. COMPARISON: 12/16/2020 abdominal ultrasound Limited examination FINDINGS: Heart size. No pericardial or pleural effusion.The lung bases are clear of infiltrate or co nsolidation. There is mild discoid atelectasis or scarring at the lung bases. The liver, gallbladder, bile ducts, pancreas, pancreatic duct, and adrenal glands and kidneys are unr emarkable, other than a very small cysts of the left kidney. Normal caliber of the abdominal aorta. No intraperitoneal or retroperitoneal or pelvic mass lesion or adenopathy or ascites. The urinary bladder is unremarkable. Status post hysterectomy. There is a prominent amount of fecal material throughout the colon. No bowel obstruction, bowel wall thickening, pneumatosis or intraperitoneal free air is detected. There are bilateral L4 pars defects with associated grade 2 anterolisthesis at L4-5. There is moderately severe degenerative disc disease at L4-5 and L5-S1. Bilateral hip osteoarthritis. No suspicious osteolytic or osteoblastic lesions are noted. IMPRESSION: Bilateral pigtail of the colon consistent with constipation Status post hysterectomy Bilateral L4 pars interarticularis defects with associated grade 2 anterolisthesis at L4-5 Prominent degenerative disc disease at L4-5 and L5-S1 Bilateral hip osteoarthritis Reviewed, dictated and finalized at [facility]. Reviewed, dictated and finalized at [facility]. IMPRESSION: Bilateral pigtail of the colon consistent with constipation Status post hysterectomy Bilateral L4 pars interarticularis defects with associated grade 2 anterolisthe sis at L4-5 Prominent degenerative disc disease at L4-5 and L5-S1 Bilateral hip osteoarthritis
== END 2020-12-22 08:01 | disposition home or self-care (01) ==
PROVIDERS: PCP Internal Medicine; Visit Provider Clinical Nurse Specialist
DX: R74.8 Abnormal levels of other serum enzymes (principal); M16.0 Bilateral primary osteoarthritis of hip; M51.37 Other intervertebral disc degeneration, lumbosacral region
CPT/HCPCS: 74177; Q9967

== ENCOUNTER 2021-06-30 07:36 | Outpatient (CLI) | payer MEDICARE, OTHER, SELFPAY ==
--- NOTE | 2021-07-02 14:26 | WPDSLEEPSTUD ---
Sleep Study Date of Study: 06/30/21 Ordering Provider: Sumaya Huggins DO Interpreting Physician: Nini Doe MD Sleep Study Type: Split Polysomnogram Height: 1.75 m Weight: 68.946 kg Body Mass Index: 22.4 Neck Circumference (inches): 13.5 [place]: 9 Reason for Sleep Study Hypersomnolence Sleep History June Razo is a 76 year old female with complaints of excessive daytime sleepiness. She has multiple sclerosis which causes pain at night, and this interrupts her sleep. There is a family history of sleep disordered breathing with both of her adult children using CPAP. She has tried doxepin, baclofen, and melatonin in the past to help with sleep. She wakes up during the night including the medical laboratory technicians hours. She rarely awakens from sleep feeling short of breath. She does not awaken at night with heartburn, belching or coughing. She frequently snores however she lives alone so she does not know if the snoring is loud. She rarely has trouble sleeping with a cold. She does not wake up at night gasping for breath. She rarely has breathing problems at night observed by others. She rarely notices her heart pounding or beating irregularly at night. She occasionally falls asleep during the day, occasionally falls asleep involuntarily and occasionally falls asleep while driving. She does not have loss of muscle tone with strong emotion. She does not have daytime difficulties due to excessive sleepiness. She does not feel paralyzed on waking or falling asleep. She frequently has vivid dreamlike scenes upon awakening or falling asleep. She does not feel afraid of going to sleep. She frequently has nightmares. She occasionally remembers her dreams. She frequently has racing thoughts. She does not feel sad or depressed. She frequently has anxiety. She occasionally has muscular tension. She does not notice parts her body jerking and she does not kick at night. She constantly has crawling and aching feelings in her legs and leg pain at night due to her multiple sclerosis. She does not have morning jaw pain. She frequently is bothered by pain during the day and awakened by pain at night. She frequently wakes up feeling stiff in the morning with sore achy muscles and pain in the neck and spine. She has headaches, bowel disturbances, fatigue and balance problems due to her MS. Normal bedtime is between 9:30 p.m. and 10:00 p.m. falling asleep quickly waking 1-2 times at night in order to move around, reposition and try to go back to bed. Sometimes these awakenings are brief but sometimes she may stay awake for 2 hours or longer. She wakes the morning at 5:00 a.m.. Her weekend schedule is the same. She estimates getting 6-7 hours of sleep at night. She rarely takes naps in the afternoon or evening. A short nap of 10 or 15 minutes may be refreshing. Most of the time she is drowsy in the morning. She feels better in the evening compared to other times of day. Habits: Never smoked tobacco. Caffeine 2 cups of coffee a day. No alcohol or recreational drugs. [facility] Past Medical History Medical History (Updated 07/02/21 @ 15:19 by Nini Doe MD) Allergies Anemia Ankle fracture Chicken pox Colon cancer screening Constipation Hernia Rectal History of stillbirth Hypertension Melanoma Multiple sclerosis Osteoarthritis Patella fracture Prediabetes Sciatica Vitamin deficiency Surgical History Surgical History (Updated 07/02/21 @ 14:52 by Nini Doe MD) H/O: hysterectomy Previous back surgery Spinal decompression surgery 04/2019 Status post tonsillectomy Family History Family History (Updated 07/02/21 @ 14:50 by Nini Doe MD) Father Hypertension Mother Family history of malignant neoplasm of ovary Sibling H/O gastric bypass Other Obstructive sleep apnea Social History Social History (Updated 07/02/21 @ 14:51 by Nini Doe MD) Social History: Lives alone. Smoking
[2021-07-02 14:30] VITALS: BMI 22.4
== END 2021-07-01 07:09 | disposition home or self-care (01) ==
LOC: ANHCSM 07:37
PROVIDERS: PCP Internal Medicine; Visit Provider Family Medicine
DX: G47.10 Hypersomnia, unspecified (principal); G47.33 Obstructive sleep apnea (adult) (pediatric)
CPT/HCPCS: 95811

== ENCOUNTER 2021-07-04 15:41 | Inpatient (IN) | payer MEDICARE, OTHER, SELFPAY ==
[2021-07-04] VITALS (22 sets, daily range): BP systolic 153–215; BP diastolic 75–120; PULSE 52–98; RESP 12–21; TEMP 36.3–36.6; O2SAT 99–100; BMI 22.4
--- NOTE | ~2021-07-04 | XR_ITS ---
EXAMINATION: XR chest 2V DATE: 07/04/2021 16:01 INDICATION: Heart palpitations. Lightheadedness. TECHNIQUE: Frontal and lateral views of the chest were obtained. COMPARISON: Chest 2 views 08/25/2015, CT abdomen and pelvis 12/22/2020 FINDINGS: There is mild scarring at the lung apices. There is mild scarring in lingula and right midd le lobe. No pleural effusion or pneumothorax. The heart size is normal. IMPRESSION: 1. Mild scarring at the lung apices and in the lingula and right middle lobe. Reviewed, dictated and finalized at location E. LATORY SUBMISSIONS SPECIALIST
--- NOTE | 2021-07-04 15:49 | ECG_ITS ---
Measurements Intervals [place] Rate: 84 P: 76 WV: 165 QRS: -16 QRSD: 95 T: 47 QT: 372 QTc: 441 Interpretive Statements SINUS RHYTHM MINIMAL Q WAVES- HIGH LATERAL LEADS BORDERLINE ECG Electronically Signed On 07-04-2021 20:11:00 LABOR RELATIONS DIRECTOR by Asher Cason D.O.
[2021-07-04 15:59] LABS: Basophils Absolute Auto 0.1 K/mm3 (0.0-0.1); Basophils Percent Auto 0.8 % (0.2-1.2); Eosinophils Absolute Auto 0.1 K/mm3 (0-0.3); Eosinophils Percent Auto 1.6 % (0-4.4); Hematocrit 37.6 % (37.0-47.0); Hemoglobin 12.4 g/dL (12.0-15.0); Lymphocytes Absolute Auto 2.65 K/mm3 (0.9-3.2); Lymphocytes Percent Auto 43.3 % (18.3-44.2); Mean Platelet Volume 8.6 fl (7.4-10.4); Monocytes Absolute Auto 0.7 K/mm3 (0.1-0.6); Monocytes Percent Auto 11.4 % (2.6-8.5); Neutrophils Absolute Auto 2.6 K/mm3 (1.3-6.7); Neutrophils Percent Auto 42.9 % (45.5-73.1); Platelet Count Result 262 k/mm3 (150-375); Red Cell Distribution Width 13.5 % (11.5-14.5); White Blood Count 6.1 K/mm3 (4.5-10.0)
[2021-07-04 16:08] LABS: Prothrombin Time 12.3 Seconds (11.1-14.7)
--- NOTE | 2021-07-04 16:12 | ED.GENADULT ---
HPI - General Adult General Chief complaint: Arrhythmia/Palpitations Stated complaint: heart racing Time Seen by Provider: 07/04/21 15:52 Source: RN notes reviewed History of Present Illness HPI narrative: Patient presents emergency room from home with palpitations. Patient says she has been having heart palpitations over the past several weeks she has been seen by her PCP and was on a Holter monitor which she had been wearing and took it off at 9 this morning states the palpitations began approximately 1030 for like her heart was racing states that with that she felt lightheaded states she also had some chest pressure over the anterior chest she states she has been having some intermittent chest pressure she denies any fevers or chills states she does have some shortness of breath with the episodes that is now improved she is not feeling her heart racing at this time denies any abdominal pain nausea vomiting Related Data Home Medications Medication Instructions Recorded Confirmed cetirizine 5 mg-pseudoephedrine ER 1 tablet PO Q12H 09/17/19 06/22/21 120 mg tablet,extended release,12hr cholecalciferol (vitamin D3) 125 125 mcg PO DAILY 09/17/19 06/22/21 mcg (5,000 unit) capsule melatonin 10 mg capsule 10 mg PO .QHS cap 12/03/19 06/22/21 acetaminophen 325 mg capsule 325 mg PO Q6H PRN 04/03/20 06/22/21 baclofen 10 mg tablet 10 mg PO TID tablet 06/01/21 06/22/21 Allergies Allergy/AdvReac Type Severity Reaction Status Date / Time latex Allergy Mild Skin Verified 06/22/21 13:37 breaks out procaine AdvReac Severe Tachycardia Verified 06/22/21 13:37 Review of Systems Review of Systems: Gen.: Denies fevers or chills Eyes: Denies eye pain or visual change ENT: Denies congestion Respiratory: Ports shortness of breath with symptoms CV: See HPI GI: Denies abdominal pain nausea, emesis or diarrhea Musculoskeletal: Denies back pain or muscle pain Neuro: Denies numbness, tingling, weakness or focal weakness Skin: Denies rash Except as documented, all other systems reviewed and negative PMFSH Past Medical History Medical History Allergies Anemia Ankle fracture Chicken pox Colon cancer screening Constipation Hernia Rectal History of stillbirth Hypertension Melanoma Multiple sclerosis Osteoarthritis Patella fracture Prediabetes Sciatica Vitamin deficiency Surgical History Surgical History (Updated 07/02/21 @ 14:52 by Nini Doe MD) H/O: hysterectomy Previous back surgery Spinal decompression surgery 04/2019 Status post tonsillectomy Family History Family History (Updated 07/02/21 @ 14:50 by Nini Doe MD) Father Hypertension Mother Family history of malignant neoplasm of ovary Sibling H/O gastric bypass Other Obstructive sleep apnea Social History Social History Social History: Lives alone. Smoking status: Never smoker Second hand tobacco smoke exposure: No Alcohol intake: former Alcohol use details: occasionally Substance use: never Gender identity (if verbalized by the patient): Female Spiritual care concerns: No Exam Narrative: APPEARANCE: No acute distress, nontoxic, resting in bed EYES: EOMI HEENT: Normocephalic, atraumatic, OMM RESPIRATORY: No respiratory distress Clear to auscultation bilaterally with no rhonchi wheezing or rales. CARDIOVASCULAR: Regular rate and rhythm without murmurs rubs or gallops. ABDOMINAL: Soft, nontender, nondistended, no rebound or guarding MUSCULOSKELETAl: Moves all extremities. No clubbing, cyanosis or edema. NEURO: Awake and alert. Following commands, speech normal, no focal deficits SKIN:: Warm, dry. No rashes lesions or abrasions PSYCHIATRIC: Normal affect/mood, Course Course Emergency Course: Discussed with patient her blood pressure recently her blood pressure been increased from benazepril hydro
[2021-07-04 16:47] LABS: Alanine Aminotransferase 15 U/L (4-35); Albumin Level 4.7 g/dL (3.5-5.1); Alkaline Phosphatase 122 U/L (38-126); Anion Gap 10 mmol/L (8-16); Aspartate Amino Transferase 29 U/L (14-36); Bilirubin,Total 0.3 mg/dL (0.2-1.3); Blood Urea Nitrogen 20 mg/dL (7-17); Calcium 9.6 mg/dL (8.4-10.2); Carbon Dioxide 26 mmol/L (22-30); Chloride 100 mmol/L (98-107); Estimated CRCL calculation 54 ml/min; Estimated Glomerular Filt Rate > 60; Glucose 109 mg/dL (65-110); Lipase 112 U/L (23-300); Potassium 4.1 mmol/L (3.4-5.0); Sodium 136 mmol/L (137-145)
[2021-07-04 16:58] LABS: Troponin I < 0.012 ng/mL (0.000-0.034)
[2021-07-04] MEDS: hydrALAZINE HCL 20 MG/ML VIAL 10 MG IV PUSH (17:20)
--- NOTE | 2021-07-04 17:53 | ECG_ITS ---
Measurements Intervals [place] Rate: 83 P: 82 SD: 164 QRS: -15 QRSD: 94 T: 56 QT: 352 QTc: 415 Interpretive Statements SINUS RHYTHM NORMAL ECG Electronically Signed On 07-05-2021 7:27:11 ENROLLMENT SPECIALIST by Asher Cason D.O.
--- NOTE | 2021-07-04 17:54 | PC.NURSE ---
PT. complaining of chest heaviness and seeing a flash in L eye that is intermittent. pt. denies vision loss of blurred vision. ERP made aware and repeat EKG completed
[2021-07-04 19:20] LABS: Troponin I < 0.012 ng/mL (0.000-0.034)
[2021-07-04 20:22] LABS: SARS-CoV-2 RNA PCR Negative
--- NOTE | 2021-07-04 21:32 | ADMGEN ---
This patient, June Razo, was admitted to IMU Room 206-01. Patient/family oriented to hospital policies and general routines including ID bracelet, bed and alarms, visiting hours, pain management, procedures, bathroom and other care routines, personal items, smoking policy, room service/diet, and visiting hours. Information on how to activate the Rapid Response Team has been discussed. Patient/Family are encouraged to report perceived risks to care and to ask questions if they do not understand what they are told or what they should do.
[2021-07-04 22:49] LABS: Troponin I 0.013 ng/mL (0.000-0.034)
[2021-07-04] MEDS: ACETAMINOPHEN 325 MG TABLET PO (23:19)
[2021-07-04] MEDS: BACLOFEN 10 MG TABLET PO (23:20)
[2021-07-04] MEDS: LORATADINE 10 MG TABLET PO (23:22)
[2021-07-05] VITALS (19 sets, daily range): BP systolic 112–166; BP diastolic 58–85; PULSE 43–91; RESP 18–20; TEMP 36.1–36.9; O2SAT 97–100
--- NOTE | 2021-07-05 00:27 | PM.IMHP ---
H&P: HPI History of Present Illness Date/Time: 07/04/2021 this is a 76-year-old female patient who has been having palpitations and stated that she has been having a history of PVCs. The patient did have a Holter monitor on until 9:00 a.m. this morning. The patient to get off at 9:00 a.m. this morning she stated that her palpitations started around 10 30 and felt like her heart was racing and she felt lightheaded. She felt some pressure over the anterior portion of her chest. Patient's EKG showed a sinus rhythm with a heart rate in the 80s. She did not have any radiating discomfort no reproducible discomfort. No nausea vomiting. No fever chills. Chest x-ray was read as mild scarring at the lung apex is and in the lingular and right middle lobe. Cardiac enzymes were negative x3. COVID was negative. Patient's blood pressure was elevated to 210/103. Patient stated that her primary care doctor increased her doses of blood pressure medicine at least 2 times. She states that her blood pressure medicine is not working for her. She was given aspirin and hydralazine in the emergency room. Her blood pressure came down to 153/83 and a pulse of 59. When I saw the patient she stated she was feeling much better. The patient is being admitted for observation on the date of service of 07/04/2021. Chief Complaint: Palpitations and chest pain Review of Systems Review of Systems: All systems reviewed & are unremarkable except as noted in HPI and below Constitutional: Constitutional: Reports as per HPI and Reports no additional constitutional complaints Eyes: Eyes: Reports as per HPI and Reports no additional eye complaints ENT: Reports system reviewed and no additional complaints, except as documented and Reports Normal hearing present Cardiovascular: Cardiovascular: Reports no additional cardiovascular complaints Respiratory: Respiratory: Reports no additional respiratory complaints and Reports no additional respiratory complaints Gastrointestinal: Gastrointestinal: Reports as per HPI and Reports no additional gastrointestinal complaints Musculoskeletal: Musculoskeletal: Reports no additional musculoskeletal complaints Integumentary/Breasts: Skin/Breast: Reports system reviewed and no additional complaints, except as docu and Reports as per HPI Neurologic: Reports system reviewed and no additional complaints, except as documented, Reports as per HPI and Reports Normal hearing present Psychiatric: Psychiatric: Reports no additional psychiatric complaints and Reports as per HPI Endocrine: Endocrine: Reports no additional endocrine complaints Hematologic/Lymphatic: Hematologic/Lymphatic: Reports no additional hematologic/lymphatic complaints Allergic/Immunologic: Allergic/Immunologic: Reports no additional allergic/immunologic complaints [facility] Past Medical History Medical History (Updated 07/05/21 @ 00:35 by Vandana Stock NP) Allergies Anemia Ankle fracture Chicken pox Colon cancer screening Constipation Hernia Rectal History of fracture of patella History of squamous cell carcinoma History of stillbirth Hypertension Multiple sclerosis Osteoarthritis Patella fracture Prediabetes Sciatica Vitamin deficiency Surgical History Surgical History (Updated 07/05/21 @ 00:35 by Vanadna Stock NP) H/O: hysterectomy History of removal of pigmented skin lesion Previous back surgery Spinal decompression surgery 04/2019 S/P ORIF (open reduction internal fixation) fracture Patella Status post tonsillectomy Family History Family History Father Congestive heart failure Hypertension Mother Family history of malignant neoplasm of ovary Myocardial infarction Sibling H/O gastric bypass Malignant neoplasm of prostate Daughter Francesco's disease Other Obstructive sleep apnea Social History Social History (Updated 07/05/21 @ 00:36 by Vandana Stock NP) S
[2021-07-05] MEDS: METOPROLOL TARTRATE 25 MG TABLET PO (01:40)
--- NOTE | 2021-07-05 02:47 | PCRCNOTE ---
Pt stated to RT that she did not want to wear a hospital unit. She will wear a CPAP when she acquires her own.
--- NOTE | 2021-07-05 05:01 | ECG_ITS ---
Measurements Intervals [place] Rate: 86 P: [place]: 0 QRS: -4 QRSD: 93 T: 41 QT: 382 QTc: 459 Interpretive Statements ATRIAL FIBRILLATION INCOMPLETE RIGHT BUNDLE BRANCH BLOCK BASELINE ARTIFACT- I, III, AVR, AVL ABNORMAL ECG Electronically Signed On 07-05-2021 7:32:04 HELICOPTER TECHNICIAN by Asher Cason D.O.
--- NOTE | 2021-07-05 05:20 | PC.NURSE ---
At 0446, heart rhythm became irregular, rate 70-80. EKG done and shows Atrial Fibrillation. See EKG and strips in the chart.
[2021-07-05 05:42] LABS: Basophils Percent Auto 0.6 % (0.2-1.2); Eosinophils Absolute Auto 0.1 K/mm3 (0-0.3); Eosinophils Percent Auto 2.1 % (0-4.4); Hematocrit 35.1 % (37.0-47.0); Hemoglobin 11.7 g/dL (12.0-15.0); Immature Granulocyte Absolute 0.01 K/mm3 (0.00-0.031); Immature Granulocyte Percent A 0.2 % (0-0.5); Lymphocytes Percent Auto 38.2 % (18.3-44.2); Mean Corpuscular HGB Conc 33.3 g/dl (32-36); Mean Corpuscular Hemoglobin 30.7 pg (26-34); Mean Corpuscular Volume 92.1 fl (80-100); Mean Platelet Volume 8.9 fl (7.4-10.4); Monocytes Absolute Auto 0.7 K/mm3 (0.1-0.6); Monocytes Percent Auto 13.6 % (2.6-8.5); Neutrophils Absolute Auto 2.4 K/mm3 (1.3-6.7); Neutrophils Percent Auto 45.3 % (45.5-73.1); Platelet Count Result 259 k/mm3 (150-375); Red Blood Count 3.81 M/mm3 (4.2-5.4); Red Cell Distribution Width 13.5 % (11.5-14.5); White Blood Count 5.2 K/mm3 (4.5-10.0)
[2021-07-05 05:49] LABS: Anion Gap 9 mmol/L (8-16); Blood Urea Nitrogen 17 mg/dL (7-17); Calcium 9.8 mg/dL (8.4-10.2); Carbon Dioxide 26 mmol/L (22-30); Chloride 100 mmol/L (98-107); Estimated CRCL calculation 62 ml/min; Estimated Glomerular Filt Rate > 60; Glucose 92 mg/dL (65-110); Potassium 4.2 mmol/L (3.4-5.0); Sodium 135 mmol/L (137-145)
--- NOTE | 2021-07-05 08:37 | PM.CNCAR ---
Assessment and Plan Assessment and plan (1) Hypertensive urgency: Code(s): I16.0 - Hypertensive urgency Status: Acute Assessment and Plan: Stop Metoprolol due to bradycardia in sinus rhythm. Start Hydralazine 25 mg TID. Monitor BP. (2) Heart palpitations: Code(s): R00.2 - Palpitations Status: Acute Assessment and Plan: Due to atrial flutter, paroxysmal. She will submit her holter upon discharge. (3) Chest pain: Code(s): R07.9 - Chest pain, unspecified Status: Acute Assessment and Plan: This is due to rapid HR in atrial flutter. Check echo in AM. (4) LUCAS (obstructive sleep apnea): Code(s): G47.33 - Obstructive sleep apnea (adult) (pediatric) Status: Acute Assessment and Plan: She will obtain CPAP as an outpatient. (5) Atrial flutter, paroxysmal: Code(s): I48.92 - Unspecified atrial flutter Status: Acute Assessment and Plan: Probably due to untreated LUCAS. [id number] 4. Start Sotalol 80 mg every 12 hours for a total of at least 5 doses in hospital. Monitor QT interval. Monitor for bradycardia. Start Xarelto 20 mg with evening meal. History of Present Illness History of Present Illness Consult date/time: 07/05/21 08:37 Reason for consult: Palpitations 76 yr old woman presented to ER for palpitations and dizziness. She has a history of multiple sclerosis, hypertension, recent diagnosis of LUCAS and has not started CPAP yet. Reports she has been having intermittent palpitations for last 3 months. It is associated with dizziness and chest discomfort. She wore a holter monitor on and will be submitting it in back to [facility]. She can walk 2.5 miles without any problems. Denies orthopnea, PND, edema. EKG: Sinus rhythm. CXR: Mild scarring of lung apices and lingular and RML. Hb 11.7, sodium 135, TSH was normal on 01/10/21. Telemetry shows she has intermittent atrial flutter up to 136 bpm and when she cardioverts she has a pause up to 2.8 seconds long. Reason For Visit: Hypertensive urgency, palpitations, chest pain Review of Systems Review of Systems: All systems reviewed & are unremarkable except as noted in HPI and below Constitutional: Constitutional: Reports as per HPI, Denies chills and Denies fever(s) Cardiovascular: Cardiovascular: Reports as per HPI, Reports chest pain, Reports irregular heart rhythm, Denies leg edema and Reports lightheadedness Respiratory: Respiratory: Reports as per HPI and Denies dyspnea Gastrointestinal: Gastrointestinal: Reports as per HPI and Denies abdominal pain Genitourinary: Genitourinary: Reports as per HPI and Denies dysuria Musculoskeletal: Musculoskeletal: Reports as per HPI and Reports muscle weakness [facility] Past Medical History Medical History (Updated 07/05/21 @ 08:43 by Asher Cason DO) Allergies Anemia Ankle fracture Chicken pox Colon cancer screening Constipation Hernia Rectal History of fracture of patella History of squamous cell carcinoma History of stillbirth Hypertension Multiple sclerosis Osteoarthritis Patella fracture Prediabetes Sciatica Vitamin deficiency Surgical History Surgical History (Updated 07/05/21 @ 00:35 by Vandana Stock NP) H/O: hysterectomy History of removal of pigmented skin lesion Previous back surgery Spinal decompression surgery 04/2019 S/P ORIF (open reduction internal fixation) fracture Patella Status post tonsillectomy Family History Family History Father Congestive heart failure Hypertension Mother Family history of malignant neoplasm of ovary Myocardial infarction Sibling H/O gastric bypass Malignant neoplasm of prostate Daughter Francesco's disease Other Obstructive sleep apnea Social History Social History (Updated 07/05/21 @ 00:36 by Vandana Stock NP) Social History: Lives alone. She is . She has 2 children. Her daughter is a d
[2021-07-05] MEDS: BACLOFEN 10 MG TABLET PO ×2 (08:58→17:08)
[2021-07-05] MEDS: CHOLECALCIFEROL 1,000 UNITS TABLET 5000 UNITS PO (08:58)
[2021-07-05] MEDS: hydrALAZINE HCL 25 MG TABLET PO ×2 (08:59→17:08)
[2021-07-05] MEDS: SOTALOL HCL 80 MG TABLET PO (09:00)
--- NOTE | 2021-07-05 10:13 | PM.IMPN ---
Progress Note: A&P Assessment and Plan (1) Hypertensive urgency: Code(s): I16.0 - Hypertensive urgency Status: Acute Assessment and Plan: Associated with palpitation was found to have a flutter Cardiology consult DC metoprolol as complicated with bradycardia Continue hydralazine (2) Heart palpitations: Code(s): R00.2 - Palpitations Status: Acute Assessment and Plan: Patient was found to have a flutter started on sotalol for at least 5 doses inpatient to monitor QTC interval also patient started on oral anticoagulation. (3) Obstructive sleep apnea: Code(s): G47.33 - Obstructive sleep apnea (adult) (pediatric) Status: Acute Assessment and Plan: order a a home auto titrate CPAP. (4) Multiple sclerosis: Code(s): G35 - Multiple sclerosis Status: Acute Assessment and Plan: Continue with her baclofen. Follow-up with PCP as outpatient Subjective Date/time seen: 07/05/21 10:13 Interval history: Patient seen and examined 76 years old female with recent diagnosis of obstructive sleep apnea history of hypertension poorly controlled for the past 1 year presented to the hospital with palpitation lightheaded she was found to have hypertensive urgency with systolic blood pressure of 204 also on tele monitor during hospitalization patient has episodes of a flutter patient was started on metoprolol complicated with bradycardia cardiology was consulted DC metoprolol started on sotalol with at least 5 days inpatient hospitalization to monitor QTC. Patient denies fever headache chest pain shortness of breath I am seeing the patient for hypertensive urgency Exam Narrative: Alert Chest no wheeze crackles Abdomen nontender nondistended CVS S1 + S2 Lower extremity edema Objective Data Vital Signs Vital Signs: Vital Signs - 24 hr 07/04/21 15:44 07/04/21 16:02 07/04/21 16:39 Temperature 97.8 F Pulse Rate 83 72 67 Respiratory Rate 20 15 13 Blood Pressure 210/103 H 202/120 H Pulse Oximetry 100 100 07/04/21 16:50 07/04/21 17:03 07/04/21 17:18 Temperature Pulse Rate 72 58 L 52 L Respiratory Rate 13 13 Blood Pressure 202/104 H Pulse Oximetry 100 100 100 07/04/21 17:25 07/04/21 17:30 07/04/21 17:31 Temperature Pulse Rate 67 75 67 Respiratory Rate 16 Blood Pressure 207/90 H 207/80 H Pulse Oximetry 100 100 100 07/04/21 17:32 07/04/21 17:45 07/04/21 17:50 Temperature Pulse Rate 73 80 84 Respiratory Rate 12 15 Blood Pressure 215/104 H Pulse Oximetry 100 100 100 07/04/21 18:00 07/04/21 18:01 07/04/21 18:42 Temperature Pulse Rate 77 71 74 Respiratory Rate 12 12 14 Blood Pressure 203/85 H 193/78 H Pulse Oximetry 100 100 100 07/04/21 19:31 07/04/21 20:31 07/04/21 21:14 Temperature 97.8 F 97.5 F L Pulse Rate 71 76 72 Respiratory Rate 21 H 18 16 Blood Pressure 189/82 H 171/87 H 170/75 H Pulse Oximetry 100 100 99 07/04/21 21:25 07/04/21 21:31 07/04/21 22:00 Temperature 97.4 F L Pulse Rate 83 98 86 Respiratory Rate 20 Blood Pressure 179/82 H Pulse Oximetry 99 99 07/04/21 23:31 07/05/21 00:00 07/05/21 01:40 Temperature 97.3 F L Pulse Rate 59 L 71 59 L Respiratory Rate 20 Blood Pressure 153/83 H Pulse Oximetry 99 99 07/05/21 02:00 07/05/21 02:46 07/05/21 04:00 Temperature 97.6 F Pulse Rate 59 L 45 L Respiratory Rate 20 Blood Pressure 166/59 H Pulse Oximetry 98 99 07/05/21 06:00 07/05/21 08:00 07/05/21 09:00 Temperature 98.2 F Pulse Rate 88 47 L 58 L Respiratory Rate 20 Blood Pressure 159/85 H Pulse Oximetry 99 07/05/21 10:00 Temperature Pulse Rate 48 L Respiratory Rate Blood Pressure Pulse Oximetry Intake/Output Intake/Output: Intake & Output 07/02/21 07/03/21 07/04/21 07/05/21 23:59 23:59 23:59 23:59 Intake Total 200 Output Total 1450 Balance -1250 Meds/Results Medications: Active Medications Generic Name Dose
--- NOTE | 2021-07-05 11:00 | ECG_ITS ---
Measurements Intervals [place] Rate: 40 P: 55 [place]: 164 QRS: -9 QRSD: 90 T: 19 QT: 494 QTc: 404 Interpretive Statements SINUS BRADYCARDIA INCOMPLETE RIGHT BUNDLE BRANCH BLOCK BASELINE ARTIFACT- I, II, AVR, AVL, AVF ABNORMAL ECG Electronically Signed On 07-05-2021 15:23:06 ROLL FORM OPERATOR by Asher Cason D.O.
[2021-07-05] MEDS: RIVAROXABAN 20 MG TABLET PO (17:08)
[2021-07-05] MEDS: ACETAMINOPHEN 500 MG TABLET 1000 MG PO (20:55)
[2021-07-05] MEDS: SOTALOL HCL 40 MG TABLET PO (22:58)
[2021-07-05] MEDS: LORATADINE 10 MG TABLET PO (22:58)
[2021-07-06] VITALS (20 sets, daily range): BP systolic 123–143; BP diastolic 56–72; PULSE 38–84; RESP 12–20; TEMP 36.4–37.3; O2SAT 96–100
--- NOTE | 2021-07-06 | ECHO_ITS ---
Patient Info Name: June Razo Age: 76 years : 1945 Gender: Female Ht: 69 in Wt: 152 lbs BSA: 1.83 m2 HR: 43 bpm BP: 130 / 56 mmHg Technical Quality: Good Exam Date: 07/06/2021 8:43 AM Exam Location: [facility] Patient Status: Inpatient Admit Date: 07/05/2021 Staff Ordering Physician: Vandana Stock NP Hairpiece Stylist: Regino Rendon RDCS, RT Attending Provider: Stephen Johnson MD Referring Physician: Montrell TORRES; Exam Type: CA echo doppler color flow Study Info Indications R07.9 - Chest pain, unspecified Complete two-dimensional, color flow and Doppler transthoracic echocardiogram is performed. Strain analysis performed. Summary 1. Complete two-dimensional, color flow and Doppler transthoracic echocardiogram is performed. 2. Left ventricular chamber dimension is normal. 3. Left ventricular systolic function is hyperdynamic, estimated at >70%. 4. The left ventricular diastolic function is grade I diastolic dysfunction. 5. E/e' 10 is mildly elevated. 6. Global longitudinal strain is normal at -20.1%. 7. Left atrial chamber dimension is moderately enlarged. 8. There is trace mitral valve regurgitation. 9. There is mild to moderate tricuspid valve regurgitation. 10. No pulmonary hypertension, estimated pulmonary arterial systolic pressure is 35 mmHg. Left Ventricle E/e' 10 is mildly elevated. Global longitudinal strain is normal at -20.1%. Left ventricular chamber dimension is normal. Left ventricular systolic function is hyperdynamic, estimated at >70%. The left ventricular diastolic function is grade I diastolic dysfunction. Right Ventricle Right ventricular systolic function is normal and with normal TAPSE 1.7 cm. Right ventricular chamber dimension is normal. Left Atria Left atrial chamber dimension is moderately enlarged. Right Atria Right atrial chamber dimension is normal. Aortic Valve The aortic valve is trileaflet. There is no aortic valve stenosis. There is no aortic valve regurgitation. Pulmonic Valve There is no pulmonic regurgitation. Mitral Valve There is no mitral valve stenosis. There is trace mitral valve regurgitation. Tricuspid Valve There is mild to moderate tricuspid valve regurgitation. No pulmonary hypertension, estimated pulmonary arterial systolic pressure is 35 mmHg. Pericardium/Pleural There is no pericardial effusion. Inferior Vena Cava Normal inferior vena cava with >50% collapse upon inspiration consistent with normal right atrial pressure, 5 mmHg. Aorta The aortic root size at the sinus of Valsalva is normal. Left Ventricular Outflow Tract Name Value Normal LVOT 2D LVOT Diameter 2.0 cm LVOT Doppler LVOT Peak Gradient 4 mmHg LVOT Mean Gradient 2 mmHg LVOT VTI 25 cm LVOT VTI/AV VTI Ratio 0.9 LVOT Stroke Volume 80 ml LVOT CO 3.6 l/min LVOT CI 2.0 l/min/m2 Mitral Valve
--- NOTE | 2021-07-06 00:58 | ECG_ITS ---
Measurements Intervals [place] Rate: 47 P: 81 [place]: 182 QRS: 14 QRSD: 97 T: 61 QT: 489 QTc: 436 Interpretive Statements SINUS BRADYCARDIA BORDERLINE ECG Electronically Signed On 07-06-2021 7:48:19 ARBOREAL SCIENTIST by Asher Cason D.O.
[2021-07-06 05:20] LABS: Basophils Percent Auto 0.7 % (0.2-1.2); Eosinophils Absolute Auto 0.1 K/mm3 (0-0.3); Eosinophils Percent Auto 2.6 % (0-4.4); Hematocrit 33.1 % (37.0-47.0); Immature Granulocyte Absolute 0.01 K/mm3 (0.00-0.031); Immature Granulocyte Percent A 0.2 % (0-0.5); Lymphocytes Absolute Auto 2.43 K/mm3 (0.9-3.2); Lymphocytes Percent Auto 53.1 % (18.3-44.2); Mean Corpuscular HGB Conc 33.2 g/dl (32-36); Mean Corpuscular Hemoglobin 31.1 pg (26-34); Mean Corpuscular Volume 93.5 fl (80-100); Monocytes Absolute Auto 0.7 K/mm3 (0.1-0.6); Monocytes Percent Auto 14.2 % (2.6-8.5); Neutrophils Absolute Auto 1.3 K/mm3 (1.3-6.7); Neutrophils Percent Auto 29.2 % (45.5-73.1); Platelet Count Result 237 k/mm3 (150-375); Red Blood Count 3.54 M/mm3 (4.2-5.4); Red Cell Distribution Width 13.6 % (11.5-14.5); White Blood Count 4.6 K/mm3 (4.5-10.0)
[2021-07-06 05:40] LABS: Alanine Aminotransferase 16 U/L (4-35); Albumin Level 3.7 g/dL (3.5-5.1); Alkaline Phosphatase 90 U/L (38-126); Anion Gap 8 mmol/L (8-16); Aspartate Amino Transferase 25 U/L (14-36); Bilirubin,Total 0.7 mg/dL (0.2-1.3); Blood Urea Nitrogen 21 mg/dL (7-17); CRP < 0.5 mg/dL (<1.0); Calcium 9.2 mg/dL (8.4-10.2); Carbon Dioxide 27 mmol/L (22-30); Chloride 97 mmol/L (98-107); Estimated CRCL calculation 54 ml/min; Estimated Glomerular Filt Rate > 60; Glucose 95 mg/dL (65-110); Lactate Dehydrogenase 275 U/L (313-618); Lipase 334 U/L (23-300); Magnesium 1.7 mg/dL (1.6-2.3); Potassium 4.2 mmol/L (3.4-5.0); Sodium 132 mmol/L (137-145)
[2021-07-06 05:45] LABS: Lactic Acid Reflex 1.1 mmol/L (0.7-2.1)
[2021-07-06 07:12] LABS: D Dimer 0.27 ug/mL (<0.48)
--- NOTE | 2021-07-06 07:41 | PM.PNCARD ---
Progress Note: A&P Assessment and Plan (1) Hypertensive urgency: Code(s): I16.0 - Hypertensive urgency Status: Acute Assessment and Plan: Stop Metoprolol due to bradycardia in sinus rhythm. Decrease Hydralazine 25 mg BID. Monitor BP. (2) Heart palpitations: Code(s): R00.2 - Palpitations Status: Acute Assessment and Plan: Due to atrial flutter/fib, paroxysmal. She will submit her holter upon discharge to [facility]. (3) Chest pain: Code(s): R07.9 - Chest pain, unspecified Status: Acute Assessment and Plan: This is due to rapid HR in atrial flutter/fib. Check echo today. (4) LUCAS (obstructive sleep apnea): Code(s): G47.33 - Obstructive sleep apnea (adult) (pediatric) Status: Acute Assessment and Plan: She will obtain CPAP as an outpatient. (5) Atrial flutter, paroxysmal: Code(s): I48.92 - Unspecified atrial flutter Status: Acute Assessment and Plan: Probably due to untreated LUCAS. [id number] 4. Started Sotalol 80 mg every 12 hours for a total of at least 5 doses in hospital on 07/05/21. However due to bradycardia, dose is decreased to 40 mg BID. Monitor QT interval. Monitor for bradycardia. Started Xarelto 20 mg with evening meal on 07/05/21. Subjective Date/time seen: 07/06/21 07:41 Since last evening when she had her last episode of atrial flutter, she has not had anymore symptoms of chest discomfort or dizziness. Exam Const: General: cooperative, healthy appearing and comfortable Resp: Auscultation: clear to auscultation bilaterally, no crackles, no rales, no rhonchi and no wheezes Cardio: Jugular venous distension: no JVD Rate: bradycardic Rhythm: regular rhythm Heart sounds: no murmurs GI: GI Palp: Yes abdominal tenderness and Yes Soft to palpation Neuro: General: oriented to person, oriented to place and oriented to time Extrem: Right lower extremity: no edema Left lower extremity: no edema Objective Data Vital Signs Vital Signs: Vital Signs - 24 hr 07/05/21 08:00 07/05/21 09:00 07/05/21 10:00 Temperature 98.2 F Pulse Rate 47 L 58 L 48 L Respiratory Rate 20 Blood Pressure 159/85 H Pulse Oximetry 99 07/05/21 10:30 07/05/21 12:00 07/05/21 14:00 Temperature 98.3 F Pulse Rate 43 L 50 L Respiratory Rate 18 Blood Pressure 112/64 129/59 L Pulse Oximetry 99 07/05/21 16:00 07/05/21 18:00 07/05/21 20:00 Temperature 98.4 F 97 F L Pulse Rate 67 91 53 L Respiratory Rate 18 20 Blood Pressure 138/74 123/58 L Pulse Oximetry 100 99 07/05/21 21:38 07/05/21 22:00 07/05/21 22:58 Temperature Pulse Rate 50 L 53 L Respiratory Rate Blood Pressure Pulse Oximetry 97 07/05/21 23:34 07/06/21 00:00 07/06/21 02:00 Temperature 97.9 F Pulse Rate 52 L 52 L 49 L Respiratory Rate 20 20 Blood Pressure 124/59 L Pulse Oximetry 98 98 07/06/21 03:43 07/06/21 03:55 07/06/21 04:00 Temperature 97.6 F Pulse Rate 46 L 46 L 45 L Respiratory Rate 20 20 Blood Pressure 130/56 L Pulse Oximetry 100 100 07/06/21 06:00 Temperature Pulse Rate 40 L Respiratory Rate Blood Pressure Pulse Oximetry Intake/Output Intake/Output: Intake & Output 07/03/21 07/04/21 07/05/21 07/06/21 23:59 23:59 23:59 23:59 Intake Total 920 Output Total 2350 350 Balance -1430 -350 Meds/Results Medications: Active Medications Generic Name Dose Route Start Last Admin Trade Name Rennyq PRN Reason Stop Dose Admin Acetaminophen 325 mg 07/04/21 23:04 07/04/21 23:19 Acetaminophen 325 Mg Tablet PO 325 mg Q6H PRN Administration PAIN RATED 1-3 Acetaminophen 1,000 mg 07/04/21 23:40 07/05/21 20:55 Acetaminophen 500 Mg Tablet PO 1,000 mg HS LETY Administration Baclofen 10 mg 07/04/21 23:10 07/05/21 17:08 Baclofen 10 Mg Tablet PO 10 mg TID LETY Administration Fluticasone Propionate 1 spray 07/04/21 23:04 Fluticasone Propionate 0.05% Na Spr
[2021-07-06] MEDS: CHOLECALCIFEROL 1,000 UNITS TABLET 5000 UNITS PO (09:56)
[2021-07-06] MEDS: BACLOFEN 10 MG TABLET PO ×3 (09:57→17:15)
[2021-07-06] MEDS: SOTALOL HCL 40 MG TABLET PO ×2 (09:57→20:56)
[2021-07-06] MEDS: hydrALAZINE HCL 25 MG TABLET PO ×2 (09:57→17:15)
[2021-07-06] MEDS: ACETAMINOPHEN 325 MG TABLET PO (11:57)
--- NOTE | 2021-07-06 12:00 | ECG_ITS ---
Measurements Intervals [place] Rate: 38 P: 99 MS: 110 QRS: 2 QRSD: 98 T: 37 QT: 500 QTc: 399 Interpretive Statements SINUS BRADYCARDIA WITH SHORT MS INTERVAL ABNORMAL ECG Electronically Signed On 07-06-2021 13:57:21 NEMATOLOGIST by Asher Cason D.O.
--- NOTE | 2021-07-06 14:03 | PM.IMPN ---
Progress Note: A&P Assessment and Plan (1) Atrial flutter, paroxysmal: Code(s): I48.92 - Unspecified atrial flutter Status: Acute (2) LUCAS (obstructive sleep apnea): Code(s): G47.33 - Obstructive sleep apnea (adult) (pediatric) Status: Acute (3) Chest pain: Code(s): R07.9 - Chest pain, unspecified Status: Acute (4) Hypertensive urgency: Code(s): I16.0 - Hypertensive urgency Status: Acute (5) Multiple sclerosis: Code(s): G35 - Multiple sclerosis Status: Acute Additional Plan 07/06/21 BP improved bradycardia on Sotalol -> dose reduced cardiology consulted and managing, recs appreciated ruled out for ACS monitor VS cont current care Time Spent With Patient Time with patient: 25 - 35 minutes Subjective Date/time seen: 07/06/21 14:03 feeling ok denies symptoms of dizziness shortness of breath chest pain, fatigue, weakness She is aware when her heart is in atrial fibrillation/flutter she denies any the symptoms at this last episode she had was overnight Exam Narrative: GEN: NAD, AAOx3, cooperative HEENT: NCAT, MMM, EOMI Neck: no JVD Heart: S1S2 slow rate regular rhythm Lungs: CTA B/l Abd: soft, NT, ND, bowel sounds normoactive Ext: moves all, no cyanosis, no clubbing, no edema Neuro: normal cognition, no focal neurological deficits appreciated Psych: mood and affect congruent insight and judgement intact Objective Data Vital Signs Vital Signs: Vital Signs - 24 hr 07/05/21 16:00 07/05/21 18:00 07/05/21 20:00 Temperature 98.4 F 97 F L Pulse Rate 67 91 53 L Respiratory Rate 18 20 Blood Pressure 138/74 123/58 L Pulse Oximetry 100 99 07/05/21 21:38 07/05/21 22:00 07/05/21 22:58 Temperature Pulse Rate 50 L 53 L Respiratory Rate Blood Pressure Pulse Oximetry 97 07/05/21 23:34 07/06/21 00:00 07/06/21 02:00 Temperature 97.9 F Pulse Rate 52 L 52 L 49 L Respiratory Rate 20 20 Blood Pressure 124/59 L Pulse Oximetry 98 98 07/06/21 03:43 07/06/21 03:55 07/06/21 04:00 Temperature 97.6 F Pulse Rate 46 L 46 L 45 L Respiratory Rate 20 20 Blood Pressure 130/56 L Pulse Oximetry 100 100 07/06/21 06:00 07/06/21 08:00 07/06/21 09:57 Temperature 97.7 F Pulse Rate 40 L 44 L 44 L Respiratory Rate 14 Blood Pressure 143/65 H Pulse Oximetry 98 07/06/21 10:00 07/06/21 11:52 07/06/21 12:00 Temperature 98.2 F Pulse Rate 44 L 38 L 40 L Respiratory Rate 16 12 Blood Pressure 123/61 Pulse Oximetry 97 99 Intake/Output Intake/Output: Intake & Output 07/03/21 07/04/21 07/05/21 07/06/21 23:59 23:59 23:59 23:59 Intake Total 920 1370 Output Total 2350 1250 Balance -1430 120 Meds/Results Medications: Active Medications Generic Name Dose Route Start Last Admin Trade Name Freq PRN Reason Stop Dose Admin Acetaminophen 325 mg 07/04/21 23:04 07/06/21 11:57 Acetaminophen 325 Mg Tablet PO 325 mg Q6H PRN Administration PAIN RATED 1-3 Acetaminophen 1,000 mg 07/04/21 23:40 07/05/21 20:55 Acetaminophen 500 Mg Tablet PO 1,000 mg HS LETY Administration Baclofen 10 mg 07/04/21 23:10 07/06/21 13:20 Baclofen 10 Mg Tablet PO 10 mg TID LETY Administration Fluticasone Propionate 1 spray 07/04/21 23:04 Fluticasone Propionate 0.05% Na Spr 16 Gm Btl (*Bkc) NASAL DAILY PRN Allergy Symptoms Hydralazine HCl 10 mg 07/05/21 00:45 Hydralazine Hcl 20 Mg/Ml Vial IV PUSH Q8H PRN Blood Pressure - High Hydralazine HCl 25 mg 07/06/21 09:00 07/06/21 09:57 Hydralazine Hcl 25 Mg Tablet PO 25 mg BID LETY Administration Perflutren Lipid Microsphere 0 ml 07/05/21 00:43 Perflutren Lipid Microspheres 1.5 Ml Vial Diluted To 10 Ml Total Volume IV PUSH ONCE PRN adequate visualization Protocol Rivaroxaban 20 mg 07/05/21 17:00 02/13/22 17:08 Rivaroxaban 20 Mg Tablet PO 20 mg DAILY@1700 [facility] Administrati
[2021-07-06] MEDS: RIVAROXABAN 20 MG TABLET PO (17:15)
[2021-07-06] MEDS: ACETAMINOPHEN 500 MG TABLET 1000 MG PO (20:56)
--- NOTE | 2021-07-06 23:00 | ECG_ITS ---
Measurements Intervals [place] Rate: 52 P: 82 [place]: 180 QRS: 46 QRSD: 99 T: 73 QT: 462 QTc: 431 Interpretive Statements SINUS BRADYCARDIA BORDERLINE ECG Electronically Signed On 07-07-2021 7:32:39 STITCH BONDER MACHINE OPERATOR HELPER by Asher Cason D.O.
[2021-07-07] VITALS (18 sets, daily range): BP systolic 122–150; BP diastolic 57–72; PULSE 36–84; RESP 18–20; TEMP 35.8–36.6; O2SAT 97–100
[2021-07-07 05:14] LABS: Eosinophils Absolute Auto 0.1 K/mm3 (0-0.3); Eosinophils Percent Auto 2.4 % (0-4.4); Hematocrit 33.9 % (37.0-47.0); Hemoglobin 11.4 g/dL (12.0-15.0); Immature Granulocyte Absolute 0.01 K/mm3 (0.00-0.031); Immature Granulocyte Percent A 0.2 % (0-0.5); Lymphocytes Absolute Auto 1.96 K/mm3 (0.9-3.2); Lymphocytes Percent Auto 46.8 % (18.3-44.2); Mean Corpuscular HGB Conc 33.6 g/dl (32-36); Mean Corpuscular Hemoglobin 30.5 pg (26-34); Mean Corpuscular Volume 90.6 fl (80-100); Monocytes Absolute Auto 0.6 K/mm3 (0.1-0.6); Monocytes Percent Auto 13.8 % (2.6-8.5); Neutrophils Absolute Auto 1.5 K/mm3 (1.3-6.7); Neutrophils Percent Auto 35.8 % (45.5-73.1); Platelet Count Result 250 k/mm3 (150-375); Red Blood Count 3.74 M/mm3 (4.2-5.4); Red Cell Distribution Width 13.2 % (11.5-14.5); White Blood Count 4.2 K/mm3 (4.5-10.0)
[2021-07-07 05:35] LABS: Anion Gap 8 mmol/L (8-16); Blood Urea Nitrogen 25 mg/dL (7-17); Carbon Dioxide 23 mmol/L (22-30); Chloride 103 mmol/L (98-107); Estimated CRCL calculation 54 ml/min; Estimated Glomerular Filt Rate > 60; Glucose 100 mg/dL (65-110); Magnesium 1.8 mg/dL (1.6-2.3); Potassium 4.1 mmol/L (3.4-5.0); Sodium 134 mmol/L (137-145)
--- NOTE | 2021-07-07 07:23 | PM.PNCARD ---
Progress Note: A&P Assessment and Plan (1) Hypertensive urgency: Code(s): I16.0 - Hypertensive urgency Status: Acute Assessment and Plan: Stop Metoprolol due to bradycardia in sinus rhythm. On Hydralazine 25 mg BID. Monitor BP. (2) Heart palpitations: Code(s): R00.2 - Palpitations Status: Acute Assessment and Plan: Due to atrial flutter/fib, paroxysmal. She will submit her holter upon discharge to [facility]. (3) Chest pain: Code(s): R07.9 - Chest pain, unspecified Status: Acute Assessment and Plan: This is due to rapid HR in atrial flutter/fib. Echo 07/06/21 shows EF>70%, grade I diastolic dysfunction (E/e' 10), mod LAE, mild-mod TR. (4) LUCAS (obstructive sleep apnea): Code(s): G47.33 - Obstructive sleep apnea (adult) (pediatric) Status: Acute Assessment and Plan: She will obtain CPAP as an outpatient. (5) Atrial flutter, paroxysmal: Code(s): I48.92 - Unspecified atrial flutter Status: Acute Assessment and Plan: Probably due to untreated LUCAS. [id number] 4. Started Sotalol 80 mg every 12 hours for a total of at least 5 doses in hospital on 07/05/21. However due to bradycardia, dose is decreased to 40 mg BID. Monitor QT interval. Monitor for bradycardia. Started Xarelto 20 mg with evening meal on 07/05/21. Due to recurrence of atrial fib/flutter, increase Sotalol 80 mg BID, monitoring for significant bradycardia. Will keep her one more night for this. 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 However, if jamal component makes it difficult or impossible to be on antiarrhythmic medication, may need pacemaker. Discuss this with patient, and she states since her MS doctor is at [facility], she would like to have that done there if needed. Subjective Date/time seen: 07/07/21 07:23 Her atrial fib/flutter returned last evening around 7 pm and was intermittent throughout the night. No chest pain or sob. Exam Const: General: cooperative, healthy appearing and comfortable Resp: Auscultation: clear to auscultation bilaterally, no crackles, no rales, no rhonchi and no wheezes Cardio: Jugular venous distension: no JVD Rate: bradycardic Rhythm: regular rhythm Heart sounds: no murmurs GI: GI Palp: Yes abdominal tenderness and Yes Soft to palpation Neuro: General: oriented to person, oriented to place and oriented to time Extrem: Right lower extremity: no edema Left lower extremity: no edema Objective Data Vital Signs Vital Signs: Vital Signs - 24 hr 07/06/21 08:00 07/06/21 09:57 07/06/21 10:00 Temperature 97.7 F Pulse Rate 44 L 44 L 44 L Respiratory Rate 14 Blood Pressure 143/65 H Pulse Oximetry 98 07/06/21 11:52 07/06/21 12:00 07/06/21 12:39 Temperature 98.2 F Pulse Rate 38 L 40 L 57 L Respiratory Rate 16 12 Blood Pressure 123/61 Pulse Oximetry 97 99 07/06/21 16:00 07/06/21 18:00 07/06/21 19:43 Temperature 99.1 F Pulse Rate 43 L 54 L Respiratory Rate 14 Blood Pressure 131/66 Pulse Oximetry 100 98 07/06/21 20:00 07/06/21 20:56 07/06/21 22:00 Temperature 97.6 F Pulse Rate 62 62 52 L Respiratory Rate 20 Blood Pressure 134/72 Pulse Oximetry 98 07/06/21 23:46 07/06/21 23:51 07/07/21 01:41 Temperature 97.5 F L Pulse Rate 55 L 50 L 47 L Respiratory Rate 20 20 Blood Pressure 134/56 L Pulse Oximetry 100 100 07/07/21 03:25 07/07/21 04:00 07/07/21 05:35 Temperature 97.8 F Pulse Rate 71 73 40 L Respiratory Rate 20 20 Blood Pressure 150/72 H Pulse Oximetry 100 98 Intake/Output Intake/Output: Intake & Output 07/04/21 07/05/21 07/06/21 07/07/21 23:59 23:59 23:59 23:59 Intake Total 920 2170 Output Total 2350 1900 Balance -1430 270 Meds/Results Medications: Active Medications Generic Name Dose Route Start Last Admin Trade Name Freq PRN Reason Stop Dose Admin Acetaminophen 325 mg
[2021-07-07] MEDS: CHOLECALCIFEROL 1,000 UNITS TABLET 5000 UNITS PO (08:55)
[2021-07-07] MEDS: BACLOFEN 10 MG TABLET PO ×3 (08:56→16:22)
[2021-07-07] MEDS: hydrALAZINE HCL 25 MG TABLET PO ×2 (08:56→16:21)
[2021-07-07] MEDS: SOTALOL HCL 80 MG TABLET PO ×2 (08:56→21:05)
--- NOTE | 2021-07-07 11:00 | ECG_ITS ---
Measurements Intervals [place] Rate: 33 P: 69 [place]: 173 QRS: -7 QRSD: 93 T: 34 QT: 501 QTc: 377 Interpretive Statements SINUS BRADYCARDIA INCOMPLETE RIGHT BUNDLE BRANCH BLOCK ABNORMAL ECG Electronically Signed On 07-07-2021 15:40:15 AUTO FLEET MANAGER by Asher Cason D.O.
[2021-07-07] MEDS: RIVAROXABAN 20 MG TABLET PO (16:21)
--- NOTE | 2021-07-07 16:36 | PM.IMPN ---
Progress Note: A&P Assessment and Plan (1) Atrial flutter, paroxysmal: Code(s): I48.92 - Unspecified atrial flutter Status: Acute (2) LUCAS (obstructive sleep apnea): Code(s): G47.33 - Obstructive sleep apnea (adult) (pediatric) Status: Acute (3) Chest pain: Code(s): R07.9 - Chest pain, unspecified Status: Acute (4) Hypertensive urgency: Code(s): I16.0 - Hypertensive urgency Status: Acute Assessment and Plan: Associated with palpitation was found to have a flutter Cardiology consult DC metoprolol as complicated with bradycardia Continue hydralazine (5) Multiple sclerosis: Code(s): G35 - Multiple sclerosis Status: Acute Assessment and Plan: Continue with her baclofen. Follow-up with PCP as outpatient Additional Plan 07/06/21 BP improved bradycardia on Sotalol -> dose reduced cardiology consulted and managing, recs appreciated ruled out for ACS monitor VS cont current care 07/07/21 pt is being monitored on tele Pt is being monitored for bradycardia and possibility of pacemaker Subjective Date/time seen: 07/07/21 16:37 Interval history: 76 years old female with recent diagnosis of obstructive sleep apnea history of hypertension poorly controlled for the past 1 year presented to the hospital with palpitation lightheaded she was found to have hypertensive urgency with systolic blood pressure of 204 also on tele monitor during hospitalization patient has episodes of a flutter patient was started on metoprolol complicated with bradycardia cardiology was consulted DC metoprolol started on sotalol with at least 5 days inpatient hospitalization to monitor QTC. 07/07/2021 Pt is being monitored for bradycardia and possibility of pacemaker Review of Systems Review of Systems: All systems reviewed & are unremarkable except as noted in HPI and below Exam Narrative: GEN: NAD, AAOx3, cooperative HEENT: NCAT, MMM, EOMI Neck: no JVD Heart: S1S2 slow rate regular rhythm Lungs: CTA B/l Abd: soft, NT, ND, bowel sounds normoactive Ext: moves all, no cyanosis, no clubbing, no edema Neuro: normal cognition, no focal neurological deficits appreciated Psych: mood and affect congruent insight and judgement intact Objective Data Vital Signs Vital Signs: Vital Signs - 24 hr 07/06/21 18:00 07/06/21 19:43 07/06/21 20:00 Temperature 36.4 C Pulse Rate 54 L 62 Respiratory Rate 20 Blood Pressure 134/72 Pulse Oximetry 98 98 07/06/21 20:56 07/06/21 22:00 07/06/21 23:46 Temperature 36.4 C L Pulse Rate 62 52 L 55 L Respiratory Rate 20 Blood Pressure 134/56 L Pulse Oximetry 100 07/06/21 23:51 07/07/21 01:41 07/07/21 03:25 Temperature Pulse Rate 50 L 47 L 71 Respiratory Rate 20 20 Blood Pressure Pulse Oximetry 100 100 07/07/21 04:00 07/07/21 05:35 07/07/21 08:00 Temperature 36.6 C Pulse Rate 73 40 L 40 L Respiratory Rate 20 Blood Pressure 150/72 H Pulse Oximetry 98 07/07/21 08:36 07/07/21 08:56 07/07/21 10:00 Temperature 36.3 C L Pulse Rate 41 L 60 41 L Respiratory Rate 18 Blood Pressure 132/59 L Pulse Oximetry 100 07/07/21 12:00 07/07/21 12:47 07/07/21 14:00 Temperature 35.8 C L Pulse Rate 42 L 36 L 39 L Respiratory Rate 18 Blood Pressure 131/64 Pulse Oximetry 100 07/07/21 16:29 Temperature 35.9 C L Pulse Rate 40 L Respiratory Rate 18 Blood Pressure 122/58 L Pulse Oximetry 100 Intake/Output Intake/Output: Intake & Output 07/04/21 07/05/21 07/06/21 07/07/21 23:59 23:59 23:59 23:59 Intake Total 920 2170 880 Output Total 2350 1900 1100 Balance -1430 270 -220 Meds/Results Medications: Active Medications Generic Name Dose Route Start Last Admin Trade Name Freq PRN Reason Stop Dose Admin Acetaminophen 325 mg 07/04/21 23:04 07/06/21 11:57 Acetaminophen 325 Mg Tablet PO 325 mg Q6H PRN Administration PAIN RATED 1-3 Acetamino
[2021-07-07] MEDS: ACETAMINOPHEN 500 MG TABLET 1000 MG PO (21:05)
[2021-07-07] MEDS: DOCUSATE SODIUM 100 MG CAPSULE PO (21:06)
--- NOTE | 2021-07-07 22:44 | ECG_ITS ---
Measurements Intervals [place] Rate: 47 P: 74 [place]: 176 QRS: 46 QRSD: 100 T: 57 QT: 494 QTc: 441 Interpretive Statements SINUS BRADYCARDIA EARLY PRECORDIAL R/S TRANSITION ABNORMAL ECG Electronically Signed On 07-10-2021 12:02:40 ENERGY ENGINEER by Asher Cason D.O.
[2021-07-08] VITALS (9 sets, daily range): BP systolic 122–139; BP diastolic 52–94; PULSE 36–96; RESP 14–18; TEMP 36.1–36.5; O2SAT 97–99
--- NOTE | 2021-07-08 07:01 | PM.PNCARD ---
Progress Note: A&P Assessment and Plan (1) Hypertensive urgency: Code(s): I16.0 - Hypertensive urgency Status: Acute Assessment and Plan: Stable BP on Hydralazine. Stop Metoprolol due to bradycardia in sinus rhythm. On Hydralazine 25 mg BID. Monitor BP. (2) Heart palpitations: Code(s): R00.2 - Palpitations Status: Acute Assessment and Plan: Due to atrial flutter/fib, paroxysmal. She will submit her holter upon discharge to [facility]. (3) Chest pain: Code(s): R07.9 - Chest pain, unspecified Status: Acute Assessment and Plan: This is due to rapid HR in atrial flutter/fib. Echo 07/06/21 shows EF>70%, grade I diastolic dysfunction (E/e' 10), mod LAE, mild-mod TR. (4) LUCAS (obstructive sleep apnea): Code(s): G47.33 - Obstructive sleep apnea (adult) (pediatric) Status: Acute Assessment and Plan: She will obtain CPAP as an outpatient. (5) Atrial flutter, paroxysmal: Code(s): I48.92 - Unspecified atrial flutter Status: Acute Assessment and Plan: Probably due to untreated LUCAS. [id number] 4. Started Sotalol 80 mg every 12 hours for a total of at least 5 doses in hospital on 07/05/21. However due to bradycardia, dose is decreased to 40 mg BID. Monitor QT interval. Monitor for bradycardia. Started Xarelto 20 mg with evening meal on 07/05/21. Due to recurrence of atrial fib/flutter, increase Sotalol 80 mg BID, monitoring for significant bradycardia. She has tachy/jamal syndrome. Discuss that thus far Sotalol loading has not kept her in Sinus rhythm. She would like to be transferred to main [facility] for consideration of atrial fib ablation and pacemaker. She has her MS physician there also. Need to transfer to electrophysiology service at [facility]. Subjective Date/time seen: 07/08/21 07:01 Reports she feels she is still going into atrial fib especially after she eats. She is concerned and would like to consider ablation/pacemaker at [facility] where her MS physician is located. Exam Const: General: cooperative, healthy appearing and comfortable Resp: Auscultation: clear to auscultation bilaterally, no crackles, no rales, no rhonchi and no wheezes Cardio: Jugular venous distension: no JVD Rate: regular rate Rhythm: abnormal rhythm Heart sounds: no murmurs GI: GI Palp: Yes abdominal tenderness and Yes Soft to palpation Neuro: General: oriented to person, oriented to place and oriented to time Extrem: Right lower extremity: no edema Left lower extremity: no edema Objective Data Vital Signs Vital Signs: Vital Signs - 24 hr 07/07/21 08:00 07/07/21 08:36 07/07/21 08:56 Temperature 97.4 F L Pulse Rate 40 L 41 L 60 Respiratory Rate 18 Blood Pressure 132/59 L Pulse Oximetry 100 07/07/21 10:00 07/07/21 12:00 07/07/21 12:47 Temperature 96.4 F L Pulse Rate 41 L 42 L 36 L Respiratory Rate 18 Blood Pressure 131/64 Pulse Oximetry 100 07/07/21 14:00 07/07/21 16:00 07/07/21 16:29 Temperature 96.6 F L Pulse Rate 39 L 48 L 40 L Respiratory Rate 18 Blood Pressure 122/58 L Pulse Oximetry 100 07/07/21 18:00 07/07/21 20:00 07/07/21 21:05 Temperature 97 F L Pulse Rate 84 62 62 Respiratory Rate 20 Blood Pressure 131/57 L Pulse Oximetry 97 07/07/21 21:09 07/07/21 22:00 07/08/21 00:00 Temperature 97.6 F Pulse Rate 44 L 48 L Respiratory Rate 18 Blood Pressure 127/58 L Pulse Oximetry 97 99 07/08/21 02:00 07/08/21 04:00 07/08/21 05:15 Temperature 97 F L Pulse Rate 49 L 39 L 40 L Respiratory Rate 18 Blood Pressure 130/52 L Pulse Oximetry 98 Intake/Output Intake/Output: Intake & Output 07/05/21 07/06/21 07/07/21 07/08/21 23:59 23:59 23:59 23:59 Intake Total 920 2170 1370 Output Total 2350 1900 1100 850 Balance -1430 270 270 -850 Meds/Results Medications: Active Medications Generic Name Dose Route Start Last Admin Trade Name Freq PRN Reason Stop Dose Admin Acetaminophen
[2021-07-08] MEDS: DOCUSATE SODIUM 100 MG CAPSULE PO (09:15)
[2021-07-08] MEDS: SOTALOL HCL 80 MG TABLET PO (09:15)
[2021-07-08] MEDS: hydrALAZINE HCL 25 MG TABLET PO ×2 (09:15→18:14)
[2021-07-08] MEDS: BACLOFEN 10 MG TABLET PO ×3 (09:17→18:15)
[2021-07-08] MEDS: SENNA/DOCUSATE SODIUM TABLET 1 TAB PO (09:17)
[2021-07-08] MEDS: CHOLECALCIFEROL 1,000 UNITS TABLET 5000 UNITS PO (09:17)
--- NOTE | 2021-07-08 12:11 | ECG_ITS ---
Measurements Intervals [place] Rate: 39 P: 15 [place]: 170 QRS: 2 QRSD: 92 T: 9 QT: 502 QTc: 405 Interpretive Statements SINUS BRADYCARDIA WITH SINUS ARRHYTHMIA INCOMPLETE RIGHT BUNDLE BRANCH BLOCK BORDERLINE T WAVE ABNORMALITY- ANTERIOR LEADS ABNORMAL ECG Electronically Signed On 07-08-2021 14:20:09 CLIENT PORTFOLIO MANAGER by Asher Cason D.O.
--- NOTE | 2021-07-08 15:26 | PM.TDS ---
Transfer Discharge Sum: Prov Provider Date of admission: 07/05/21 09:26 Primary care physician: Dutch Simpson DO Admitting clinician: Stephen Johnson MD Consults: 07/04/21 19:12 Consult to Physician Routine Comment: Consulting Provider: Asher Cason Reason for consultation: Palpitations Has provider been notified: Yes DS: Admitting Diagnosis Discharge Date 07/08/2021 Admitting Diagnosis PALIPTAtions AND CHEST PAIN DS: Discharge Diagnosis Discharge Diagnosis (1) Atrial flutter, paroxysmal: Code(s): I48.92 - Unspecified atrial flutter Status: Acute Assessment and Plan: 07/06/21 BP improved bradycardia on Sotalol -> dose reduced cardiology consulted and managing, recs appreciated ruled out for ACS monitor VS cont current care 07/07/21 pt is being monitored on tele Pt is being monitored for bradycardia and possibility of pacemaker (2) LUCAS (obstructive sleep apnea): Code(s): G47.33 - Obstructive sleep apnea (adult) (pediatric) Status: Acute (3) Chest pain: Code(s): R07.9 - Chest pain, unspecified Status: Acute (4) Hypertensive urgency: Code(s): I16.0 - Hypertensive urgency Status: Acute Assessment and Plan: Associated with palpitation was found to have a flutter Cardiology consult DC metoprolol as complicated with bradycardia Continue hydralazine (5) Multiple sclerosis: Code(s): G35 - Multiple sclerosis Status: Acute Assessment and Plan: Continue with her baclofen. Follow-up with PCP as outpatient Transfer Discharge Sum: Med Medications Active and Home Medications: Home Medications cholecalciferol (vitamin D3) 125 mcg (5,000 unit) capsule 125 mcg PO DAILY 09/17/19 [History Confirmed 07/04/21] acetaminophen 325 mg capsule 325 mg PO PRN PRN 04/03/20 [History Confirmed 07/04/21] baclofen 10 mg tablet 10 mg PO TID tablet 06/01/21 [History Confirmed 07/04/21] benazepril 20 mg tablet 40 mg PO DAILY #135 tablet 06/11/21 [Rx Confirmed 07/04/21] Curcumin 1 tablet PO DAILY 07/04/21 [History Confirmed 07/04/21] acetaminophen [Tylenol Arthritis Pain] 1,300 mg PO HS 07/04/21 [History Confirmed 07/04/21] cetirizine [Zyrtec] 10 mg PO DAILY PRN 07/04/21 [History Confirmed 07/04/21] fluticasone propionate [Flonase] 1 spray INTRANASAL DAILY PRN 07/04/21 [History Confirmed 07/04/21] turmeric 1 tablet PO DAILY 07/04/21 [History Confirmed 07/04/21] Active Medications Acetaminophen (Acetaminophen 325 Mg Tablet) 325 mg PO Q6H PRN PRN Reason: PAIN RATED 1-3 Last Admin: 07/06/21 11:57 Dose: 325 mg Documented by: Acetaminophen (Acetaminophen 500 Mg Tablet) 1,000 mg PO HS [facility] Last Admin: 07/07/21 21:05 Dose: 1,000 mg Documented by: Baclofen (Baclofen 10 Mg Tablet) 10 mg PO TID [facility] Last Admin: 07/08/21 13:10 Dose: 10 mg Documented by: Docusate Sodium (Docusate Sodium 100 Mg Capsule) 100 mg PO Q12HR [facility] Last Admin: 07/08/21 09:15 Dose: 100 mg Documented by: Fluticasone Propionate (Fluticasone Propionate 0.05% Na Spr 16 Gm Btl (*Bkc)) 1 spray NASAL DAILY PRN PRN Reason: Allergy Symptoms Hydralazine HCl (Hydralazine Hcl 20 Mg/Ml Vial) 10 mg IV PUSH Q8H PRN PRN Reason: Blood Pressure - High Hydralazine HCl (Hydralazine Hcl 25 Mg Tablet) 25 mg PO BID [facility] Last Admin: 07/08/21 09:15 Dose: 25 mg Documented by: Perflutren Lipid Microsphere (Perflutren Lipid Microspheres 1.5 Ml Vial Diluted To 10 Ml Total Volume) 0 ml IV PUSH ONCE PRN; Protocol PRN Reason: adequate visualization Rivaroxaban (Rivaroxaban 20 Mg Tablet) 20 mg PO DAILY@1700 [facility] Last Admin: 07/07/21 16:21 Dose: 20 mg Documented by: Senna/Docusate Sodium (Senna/Docusate Sodium Tablet) 1 tab PO BID [facility] Last Admin: 07/08/21 09:17 Dose: 1 tab Documented by: Sotalol HCl (Sotalol Hcl 80 Mg Tablet) 80 mg PO Q12HR [facility] Last Admin: 07/08/21 09:15 Dose: 80 mg Documented by: Vitamin D (Cholecalciferol 1,000 Units Tablet) 5,000 units PO DAILY [facility]
[2021-07-08] MEDS: RIVAROXABAN 20 MG TABLET PO (18:15)
== END 2021-07-08 18:30 | disposition short-term general hospital (02) | DRG 305 ==
LOC: ANHED 19:20 → ANHIMU 20:30
PROVIDERS: Hospitalist; Nurse Practitioner; Admitting Provider Internal Medicine; Emergency Provider Emergency Medicine; PCP Internal Medicine; Visit Provider Family Medicine
DX: I16.0 Hypertensive urgency (principal); I48.92 Unspecified atrial flutter; I49.5 Sick sinus syndrome; G47.33 Obstructive sleep apnea (adult) (pediatric); G35 Multiple sclerosis; Z20.822 Contact with and (suspected) exposure to COVID-19; E55.9 Vitamin D deficiency, unspecified; I10 Essential (primary) hypertension; M19.90 Unspecified osteoarthritis, unspecified site; R73.03 Prediabetes; Z90.710 Acquired absence of both cervix and uterus
CPT/HCPCS: 36415; 71046; 80048; 80053; 83605; 83615; 83690; 83735; 84443; 84484; 85025; 85380; 85610; 85730; 86140; 93005; 93306; 96374; 99285; A9270; C9803; G0378; J0360; U0003; U0005

== ENCOUNTER 2021-11-21 11:59 | Emergency (ER) | payer MEDICARE, OTHER, SELFPAY ==
[2021-11-21 12:10] VITALS: BP 150/76; PULSE 60; RESP 18; TEMP 36.9; O2SAT 100
--- NOTE | 2021-11-21 12:46 | ED.PEDGIA ---
HPI - Pediatric GI General Chief Complaint: Urogenital-Female Stated Complaint: Possible UTI History of Present Illness HPI narrative: Patient is a 76-year-old female who presents to the [facility] via POV for evaluation of urinary symptoms that began this morning. Additionally, she reports dysuria and lower abdominal pressure. Nothing improves or worsen symptoms. She did take a 500 mg tablet of ampicillin that was prescribed November 2020 at [facility] d/c last year secondary to urosepsis. Related Data Home Medications Medication Instructions Recorded Confirmed cholecalciferol (vitamin D3) 125 125 mcg PO DAILY 09/17/19 11/21/21 mcg (5,000 unit) capsule acetaminophen 325 mg capsule 325 mg PO PRN PRN Pain 04/03/20 11/21/21 (Tylenol) acetaminophen 650 mg 1,300 mg PO HS 07/04/21 11/21/21 tablet,extended release (Tylenol Arthritis Pain) cetirizine 10 mg tablet (Zyrtec) 10 mg PO DAILY PRN Allergy Symptoms 07/04/21 11/21/21 dofetilide 250 mcg capsule 250 mcg PO Q12H 08/07/21 11/21/21 (Tikosyn) metoprolol succinate 25 mg 12.5 mg PO BID 11/19/21 11/21/21 tablet,extended release 24 hr rivaroxaban 20 mg tablet 20 mg PO DAILY 11/19/21 11/21/21 baclofen 10 mg tablet 1 tablet PO PRN PRN Pain 11/21/21 11/21/21 Allergies Allergy/AdvReac Type Severity Reaction Status Date / Time latex Allergy Mild Skin Verified 11/21/21 12:12 breaks out procaine AdvReac Severe Tachycardia Verified 11/21/21 12:12 Pediatric Review of Systems Review of Systems: Denies history of pyelonephritis, and renal calculi. Pertinent negatives: fever, chills, sweats, change in appetite, poor p.o. intake, malaise, recent weight loss, myalgias, lymphadenopathy, headache, dizziness, STD exposure, painful intercourse, abdominal pain, constipation, nausea, vomiting, diarrhea, abdominal cramping, hematuria, urinary frequency/urgency, back pain, urinary incontinence, vaginal bleeding/discharge, shortness of breath, chest pain, and heart palpitations/murmurs. [facility] Past Medical History Medical History Allergies Anemia Ankle fracture Chicken pox Colon cancer screening Constipation Hernia Rectal History of fracture of patella History of squamous cell carcinoma History of stillbirth Hypertension Multiple sclerosis Osteoarthritis Patella fracture Prediabetes Sciatica Vitamin deficiency Surgical History Surgical History H/O: hysterectomy History of permanent cardiac pacemaker placement History of removal of pigmented skin lesion Previous back surgery Spinal decompression surgery 04/2019 S/P ORIF (open reduction internal fixation) fracture Patella Status post tonsillectomy Family History Family History Father Congestive heart failure Hypertension Mother Family history of malignant neoplasm of ovary Myocardial infarction Sibling H/O gastric bypass Malignant neoplasm of prostate Daughter Francesco's disease Other Obstructive sleep apnea Social History Social History Social History: Lives alone. She is . She has 2 children. Her daughter is a durable power progress developer for healthcare. The patient will allow herself to be a full code but does not want to be in a vegetative state. The patient is retired from [employer]. Lifelong nonsmoker. Does not use any alcohol marijuana or illicit drugs. Code status full code Smoking status: Never smoker Second hand tobacco smoke exposure: No Alcohol intake: never Alcohol use details: occasionally Substance use: never Substance use type: does not use Gender identity (if verbalized by the patient): Female Spiritual care concerns: No Comments I have reviewed and agree with the patient's past medical, davidson
== END 2021-11-21 13:22 | disposition home or self-care (01) ==
PROVIDERS: Emergency Provider Nurse Practitioner Family; PCP Internal Medicine
DX: N30.90 Cystitis, unspecified without hematuria (principal); I10 Essential (primary) hypertension; G35 Multiple sclerosis; M19.90 Unspecified osteoarthritis, unspecified site; R73.03 Prediabetes; Z95.0 Presence of cardiac pacemaker
CPT/HCPCS: 81003; 87086; 99213; G0463

== ENCOUNTER → 2021-12-07 11:11 | Outpatient (CLI) | payer MEDICARE, OTHER, SELFPAY ==
--- NOTE | ~2021-12-07 | MM_ITS ---
EXAMINATION: MM screening [facility] BI w enma HISTORY: Screening TECHNIQUE: Craniocaudal and mediolateral oblique 3-D tomosynthesis images were obtained and synthetic 2-D images were generated. CAD analysis was submitted and interpreted. COMPARISON: Comparison to multiple prior studies sequentially, with oldest reviewed study dated 09/09. BREAST PARENCHYMAL COMPOSITION: There are scattered areas of fibroglandular density. FINDINGS: There is no evidence of suspicious mass, calcification, or architectural distortion to sugg est malignancy in either breast. There has been no suspicious interval change. IMPRESSION: 1. No mammographic evidence of malignancy. 2. Recommend routine screening mammography in one year. BI-RADS Category 1: Negative Reviewed, dictated and finalized at location A.
== END ==
PROVIDERS: PCP Internal Medicine; Visit Provider Student in an Organized Health Care Education/Training Program
DX: Z12.31 Encounter for screening mammogram for malignant neoplasm of breast (principal)
CPT/HCPCS: 77063; 77067

== ENCOUNTER 2021-12-08 14:29 | Outpatient (CLI) | payer MEDICARE, OTHER, SELFPAY ==
--- NOTE | ~2021-12-08 | XR_ITS ---
EXAM: XR lumbar spine 2-3V DATE: 12/08/2021 14:49 HISTORY: RT SIDE BACK PAIN, HX OF SPINAL DECOMPRESSION SURG . COMPARISON: None available. FINDINGS: 5 nonrib-bearing lumbar-type vertebral bodies. Pedicles intact. Significant anterolisthesi s of L4 on L5, with 50% uncovering. Severe disc space narrowing at L4-5 and L5-S1. Multilevel severe facet hypertrophy and sclerosis. Likely bilateral pars defects at L4. Pelvic phleboliths. IMPRESSION: Grade 2 anterolisthesis of L4 on L5. Severe lower lumbar degenerative disc disease. Multi level facet arthropathy. Reviewed, dictated and finalized at location K. IMPRESSION: Grade 2 anterolisthesis of L4 on L5. Severe lower lumbar degenerati ve disc disease. Multilevel facet arthropathy.
--- NOTE | ~2021-12-08 | XR_ITS ---
EXAMINATION: XR hip RT min 2V DATE: 12/08/2021 14:49 INDICATION: Right hip pain. TECHNIQUE: 2 views of right hip were obtained. COMPARISON: None. FINDINGS: There is lumbar levocurvature and severe spondylosis. No fracture. There is severe right hi p osteoarthritis. Osteitis pubis is noted. IMPRESSION: 1. Severe right hip osteoarthritis. Reviewed, dictated and finalized at location A.
== END 2021-12-08 14:30 | disposition home or self-care (01) ==
PROVIDERS: PCP Internal Medicine; Visit Provider Clinical Nurse Specialist
DX: M51.36 Other intervertebral disc degeneration, lumbar region (principal); M16.11 Unilateral primary osteoarthritis, right hip
CPT/HCPCS: 72100; 73502

== ENCOUNTER → 2022-02-17 12:01 | Outpatient (CLI) | payer MEDICARE, OTHER, SELFPAY ==
--- NOTE | ~2022-02-17 | DEXA_ITS ---
Bone Density Report Name: YADIRA DELGADILLO Age: 77 Sex: Female Ethnicity: White Date of : 1945 Indication: postmenopausal; screening for osteoporosis; height loss; prior fracture; hysterectomy; Referring Provider: Juhi Styles Study: Bone densitometry was performed. Exam Date: February 17, 2022 Accession number: [id number] Bone Density: Region BMD T-score Z-score Classification AP Spine (L1-L4) 0.928 -1.1 1.4 Osteopenia Femoral Neck (Left) 0.869 0.2 2.4 Normal Total Hip (Left) 0.948 0.0 1.9 Normal Femoral Neck (Right) 0.975 1.1 3.3 Normal Total Hip (Right) 0.937 0.0 1.9 Normal Total Hip Mean 0.943 0.0 1.9 Normal World Health Organization criteria for BMD impression classify patients as: Normal (T-score at or above -1.0), Osteopenia (T-score between -1.0 and -2.5), or Osteoporosis (T-score at or below -2.5). 10-year Fracture Risk(1): Major Osteoporotic Fracture 12% Hip Fracture 1.0% Reported Risk Factors: [place] (), Neck BMD=0.869, BMI=23.7, previous fracture (1) FRAX(R) Version 3.08. Fracture probability calculated for an untreated patient. Fracture probability may be lower if the patient has received treatment. Previous Exams: Region Exam Age BMD T-score BMD Change BMD Change Date g/cm2 vs Baseline vs Previous AP Spine(L1-L4) 02/17/2022 77 0.928 -1.1 -0.188* -0.188* 04/18/2018 73 1.117 0.6 Total Hip(Left) 02/17/2022 77 0.948 0.0 -0.118* -0.118* 04/18/2018 73 1.066 1.0 Total Hip(Right) 02/17/2022 77 0.937 0.0 -0.103* -0.103* 04/18/2018 73 1.040 0.8 *Denotes significance at 95% confidence level, LSC for AP Spine = 0.022 g/cm2, LSC for Total Hip = 0.027 g/cm2 Clinical Information Provided by Patient: Has had a low trauma fracture Has used the following medications: Vitamin D Has the following medical conditions: Hysterectomy, MS Patient maximum height was 69 Menopause Age: 57 Does not regularly consume dairy products Drinks caffeinated beverages Onset of menses at age 12 Number of children 2 Impression: The patient has low bone mass, based on the Total Spine T-score. The patient has an estimated ten-year risk of hip fracture of 1% and an estimated ten-year risk of major fracture of 12%, based on the WHO FRAX algorithm. The patient has risk factors, including: previous fracture. The BMD for the AP Spine(L1-L4) decreased, changing by -0.188 s
== END ==
PROVIDERS: PCP Internal Medicine; Visit Provider Student in an Organized Health Care Education/Training Program
DX: Z78.0 Asymptomatic menopausal state (principal); M85.88 Other specified disorders of bone density and structure, other site
CPT/HCPCS: 77080

== ENCOUNTER 2022-06-07 13:27 | Outpatient (CLI) | payer MEDICARE, OTHER, SELFPAY ==
--- NOTE | 2022-06-07 14:03 | ECG_ITS ---
Measurements Intervals [place] Rate: 60 P: -78 TX: 231 QRS: 17 QRSD: 97 T: 55 QT: 436 QTc: 436 Interpretive Statements ELECTRONIC ATRIAL PACEMAKER INCOMPLETE RIGHT BUNDLE BRANCH BLOCK BORDERLINE ECG COMPARED TO ECG 07/08/2021 12:34:35 ELECTRONIC ATRIAL PACEMAKER NOW PRESENT Electronically Signed On 06-07-2022 14:10:54 SHAFT TENDER by Asher Cason D.O.
[2022-06-07 14:14] LABS: Anion Gap 10 mmol/L (8-16); Blood Urea Nitrogen 20 mg/dL (7-17); Calcium 9.1 mg/dL (8.4-10.2); Carbon Dioxide 30 mmol/L (22-30); Chloride 92 mmol/L (98-107); Estimated Glomerular Filt Rate > 60; Glucose 145 mg/dL (65-110); Potassium 4.4 mmol/L (3.4-5.0); Sodium 132 mmol/L (137-145)
[2022-06-07 16:23] LABS: Vitamin D 25 Hydroxy 43.4 ng/mL
== END 2022-06-07 13:28 | disposition home or self-care (01) ==
PROVIDERS: PCP Internal Medicine
DX: Z51.81 Encounter for therapeutic drug level monitoring (principal); Z79.899 Other long term (current) drug therapy; R93.89 Abnormal findings on diagnostic imaging of other specified body structures; E55.9 Vitamin D deficiency, unspecified; R26.9 Unspecified abnormalities of gait and mobility; R53.82 Chronic fatigue, unspecified; R25.2 Cramp and spasm; I45.10 Unspecified right bundle-branch block; Z95.0 Presence of cardiac pacemaker
CPT/HCPCS: 36415; 80048; 82306; 93005

== ENCOUNTER 2022-09-10 11:01 | Outpatient (CLI) | payer MEDICARE, OTHER, SELFPAY ==
--- NOTE | 2022-09-10 | ECG_ITS ---
Measurements Intervals [place] Rate: 60 P: -79 DC: 241 QRS: -9 QRSD: 97 T: 38 QT: 444 QTc: 444 Interpretive Statements ELECTRONIC ATRIAL PACEMAKER POSSIBLE RIGHT VENTRICULAR CONDUCTION DELAY [RSR (QR) IN V1/V2] ABNORMAL RHYTHM ECG COMPARED TO ECG 06/07/2022 14:08:17 NO SIGNIFICANT CHANGES Electronically Signed On 09-10-2022 15:39:03 CDT by Bennett Alaniz M.D.
[2022-09-10 11:42] LABS: Anion Gap 4 mmol/L (8-16); Blood Urea Nitrogen 18 mg/dL (7-17); Calcium 8.7 mg/dL (8.4-10.2); Carbon Dioxide 29 mmol/L (22-30); Chloride 100 mmol/L (98-107); Estimated Glomerular Filt Rate > 60; Glucose 100 mg/dL (65-110); Potassium 4.7 mmol/L (3.4-5.0); Sodium 133 mmol/L (137-145)
== END 2022-09-10 11:02 | disposition home or self-care (01) ==
PROVIDERS: PCP Internal Medicine
DX: Z79.899 Other long term (current) drug therapy (principal); I45.9 Conduction disorder, unspecified; Z95.0 Presence of cardiac pacemaker
CPT/HCPCS: 36415; 80048; 93005

== ENCOUNTER 2022-11-17 14:59 | Emergency (ER) | payer MEDICARE, OTHER, SELFPAY ==
--- NOTE | ~2022-11-17 | CT_ITS ---
EXAMINATION: CT facial bones wo con DATE: 11/17/2022 16:20 INDICATION: fall, facial trauma . TECHNIQUE: Computed tomography (CT) of the facial bones and maxillofacial region was performed withou t intravenous contrast. Automated exposure control and iterative reconstruction technique were employ ed. The dose-length product was 286.17 mGy-cm. COMPARISON: None. FINDINGS: Soft Tissues: Left cheek and chin soft tissue swelling. Facial bones: No acute fracture. No lytic or blastic process. Eyes: The globes are intact. The soft tissue planes of the orbits are maintained. Paranasal Sinuses: The visualized aerated spaces are clear. Foreign Bodies: No radiopaque foreign bodies. Other Findings: Periodontal disease. IMPRESSION: No evidence of acute facial bone fracture. Reviewed, dictated and finalized at location K.
--- NOTE | ~2022-11-17 | CT_ITS ---
EXAMINATION: CT brain wo con DATE: 11/17/2022 16:20 INDICATION: head injury . TECHNIQUE: Computed tomography (CT) of the head was performed without intravenous contrast. The mA wa s adjusted according to patient size. Iterative reconstruction technique was employed. The dose-lengt h product was 605.33 mGy-cm. COMPARISON: None. FINDINGS: No acute intracranial hemorrhage or extra-axial fluid collection. No hydrocephalus, mass, or herniation. No acute ischemic infarct. Unremarkable dural venous sinus attenuation. No acute osseous abnormality. The aerated spaces are clear. Mild atrophy and chronic white matter change. Atherosclerotic intracranial calcification. Bilateral l ens replacements. IMPRESSION: No acute intracranial process. Reviewed, dictated and finalized at location K.
[2022-11-17 15:03] VITALS: BP 221/99; PULSE 67; RESP 18; TEMP 36.5; O2SAT 100
[2022-11-17 15:23] VITALS: PULSE 60; O2SAT 100
[2022-11-17 15:31] VITALS: BP 193/98; PULSE 60; RESP 18; O2SAT 100
[2022-11-17] MEDS: TETANUS,DIPHTHERIA,AC PERTUSSIS ADULT (0.5 ML) BOOSTRIX IM (16:35)
[2022-11-17] MEDS: ACETAMINOPHEN 500 MG TABLET 1000 MG PO (16:36)
--- NOTE | 2022-11-17 17:08 | ED.FALL ---
HPI - Fall General Chief Complaint: Fall Stated Complaint: fall Time Seen by Provider: 11/17/22 15:40 Source: patient and RN notes reviewed Mode of arrival: ambulatory Limitations: no limitations History of Present Illness HPI Narrative: This is a 77 year old female with history of MS who presents for evaluation after a fall. She reports she felt due to her MS today. she fell onto gravel injuring her left chin and face. She denies LOC. She reports headache but denies dizziness, nausea or vomiting. She has abrasion to left hand and she reports a knot from her arthritis. She does not think she needs an xray of her hand. She also has left knee abrasion but she states it does not hurt. She has been ambulatory since the fall. Her last tetanus was 2014. She takes xarelto for history of pacemaker and arrhythmia. She denies back pain, neck pain or rib pain Related Data Home Medications Medication Instructions Recorded Confirmed cholecalciferol (vitamin D3) 125 125 mcg PO DAILY 09/17/19 12/08/21 mcg (5,000 unit) capsule acetaminophen 325 mg capsule 325 mg PO PRN PRN Pain 04/03/20 12/08/21 (Tylenol) acetaminophen 650 mg 1,300 mg PO HS 07/04/21 12/08/21 tablet,extended release (Tylenol Arthritis Pain) cetirizine 10 mg tablet (Zyrtec) 10 mg PO DAILY PRN Allergy Symptoms 07/04/21 12/08/21 dofetilide 250 mcg capsule 250 mcg PO Q12H 08/07/21 12/08/21 (Tikosyn) metoprolol succinate 25 mg 12.5 mg PO BID 11/19/21 12/08/21 tablet,extended release 24 hr rivaroxaban 20 mg tablet 20 mg PO DAILY 11/19/21 12/08/21 baclofen 10 mg tablet 1 tablet PO PRN PRN Pain 11/21/21 12/08/21 Allergies Allergy/AdvReac Type Severity Reaction Status Date / Time latex Allergy Mild Skin Verified 11/17/22 15:37 breaks out procaine AdvReac Severe Tachycardia Verified 11/17/22 15:37 Review of Systems Constitutional: Constitutional: Denies weakness Cardiovascular: Cardiovascular: Denies syncope, Denies rapid heart rate, Denies irregular heart rhythm, Denies leg edema and Denies dyspnea Respiratory: Respiratory: Denies chest congestion, Denies hemoptysis, Denies excessive phlegm production and Denies dyspnea Gastrointestinal: Gastrointestinal: Denies abdominal pain, Denies hematochezia, Denies diarrhea and Denies vomiting Genitourinary: Genitourinary: Denies hematuria and Denies dysuria Musculoskeletal: Musculoskeletal: Reports arthralgias, Denies joint swelling, Denies loss of height and Denies muscle weakness Neurologic: Denies syncope, Reports headache(s), Denies focal weakness and Denies weakness PMFSH Past Medical History Medical History Allergies Anemia Ankle fracture Chicken pox Colon cancer screening Constipation Hernia Rectal History of fracture of patella History of squamous cell carcinoma History of stillbirth Hypertension Multiple sclerosis Osteoarthritis Patella fracture Prediabetes Sciatica Vitamin deficiency Surgical History Surgical History H/O: hysterectomy History of permanent cardiac pacemaker placement History of removal of pigmented skin lesion Previous back surgery Spinal decompression surgery 04/2019 S/P ORIF (open reduction internal fixation) fracture Patella Status post tonsillectomy Family History Family History (Reviewed 12/08/21 @ 08:16 by Vandana Sanchez [facility]) Father Congestive heart failure Hypertension Mother Family history of malignant neoplasm of ovary Myocardial infarction Sibling H/O gastric bypass Malignant neoplasm of prostate Daughter Francesco's disease Other Obstructive sleep apnea Social History Social History Social History: Lives alone. She is . She has 2 children. Her daughter is a durable power document review attorney for healthcare. The patient will allow herself to be a full code but does n
[2022-11-17 17:26] VITALS: BP 196/21; PULSE 60; RESP 20; O2SAT 99
== END 2022-11-17 17:25 | disposition home or self-care (01) ==
PROVIDERS: Emergency Provider General Practice; PCP Internal Medicine
DX: S01.81XA Laceration without foreign body of other part of head, initial encounter (principal); S00.81XA Abrasion of other part of head, initial encounter; S09.90XA Unspecified injury of head, initial encounter; Z23 Encounter for immunization; G35 Multiple sclerosis; I10 Essential (primary) hypertension; R73.03 Prediabetes; E55.9 Vitamin D deficiency, unspecified; M19.90 Unspecified osteoarthritis, unspecified site; Z95.0 Presence of cardiac pacemaker; Z86.2 Personal history of diseases of the blood and blood-forming organs and certain disorders involving the immune mechanism; Z85.828 Personal history of other malignant neoplasm of skin; Z90.710 Acquired absence of both cervix and uterus; Z79.01 Long term (current) use of anticoagulants; W18.30XA Fall on same level, unspecified, initial encounter
CPT/HCPCS: 12011; 70450; 70486; 90471; 90715; 99284; A9270

== ENCOUNTER 2022-12-13 11:49 | Outpatient (RCR) | payer MEDICARE, OTHER, SELFPAY ==
--- NOTE | 2022-12-13 12:22 | ECG_ITS ---
Measurements Intervals [place] Rate: 60 P: -82 MI: 263 QRS: -4 QRSD: 101 T: 45 QT: 438 QTc: 438 Interpretive Statements ELECTRONIC ATRIAL PACEMAKER INCOMPLETE RIGHT BUNDLE BRANCH BLOCK BASELINE WANDER- I, II, III BORDERLINE ECG COMPARED TO ECG 09/10/2022 11:58:16 NO SIGNIFICANT CHANGES Electronically Signed On 12-13-2022 12:54:13 CDT by Asher Cason D.O.
[2022-12-13 12:53] LABS: Anion Gap 9 mmol/L (8-16); Blood Urea Nitrogen 27 mg/dL (7-17); Calcium 9.1 mg/dL (8.4-10.2); Carbon Dioxide 28 mmol/L (22-30); Chloride 96 mmol/L (98-107); Estimated Glomerular Filt Rate > 60; Glucose 94 mg/dL (65-110); Potassium 4.4 mmol/L (3.4-5.0); Sodium 133 mmol/L (137-145)
== END 2023-03-13 23:59 | disposition home or self-care (01) ==
LOC: ANHLAB 11:49
PROVIDERS: PCP Internal Medicine
DX: Z51.81 Encounter for therapeutic drug level monitoring (principal); Z79.899 Other long term (current) drug therapy
CPT/HCPCS: 36415; 80048; 93005

== ENCOUNTER 2023-04-08 14:02 | Outpatient (CLI) | payer MEDICARE, OTHER, SELFPAY ==
--- NOTE | ~2023-04-08 | US_ITS ---
EXAMINATION: US carotid duplex BI DATE: 04/08/2023 15:13 INDICATION: Dizziness and giddiness. TECHNIQUE: Grayscale, color Doppler, and pulsed Doppler images of the cervical carotid arteries were obtained. The degree of vessel stenosis is placed in one of the following categories: normal, <50%, 5 0-69%, >=70% but less than near-occlusion, near-occlusion, or total occlusion. Note that percent sten osis relative to normal distal artery lumen diameter is indirectly measured from velocity measurement s as described by Harry, et al. Radiology 2003; 229:340-346. COMPARISON: None. FINDINGS: RIGHT: The right common carotid artery (CCA) peak systolic velocity (PSV) is 121 cm/s. The right internal ca rotid artery (ICA) PSV is 85 cm/s. The right ICA end-diastolic velocity (EDV) is 25 cm/s. The right I CA/CCA PSV ratio is 0.7. Grayscale and color Doppler images yield an estimate of <50% diameter reduct ion from plaque in the ICA. There is antegrade flow in the right vertebral artery. LEFT: The left CCA PSV is 106 cm/s. The left ICA PSV is 81 cm/s. The left ICA EDV is 26 cm/s. The left ICA/ CCA PSV ratio is 0.8. Grayscale and color Doppler images yield an estimate of <50% diameter reduction from plaque in the ICA. There is antegrade flow in the left vertebral artery. IMPRESSION: 1. <50% stenosis in the right internal carotid artery. 2. <50% stenosis in the left internal carotid artery. Reviewed, dictated and finalized at location A. L AIRCREWMAN OPERATOR
== END 2023-04-08 14:03 | disposition home or self-care (01) ==
PROVIDERS: PCP Clinical Nurse Specialist; Visit Provider Clinical Nurse Specialist
DX: R42 Dizziness and giddiness (principal); I65.23 Occlusion and stenosis of bilateral carotid arteries
CPT/HCPCS: 93880

== ENCOUNTER → 2023-05-27 12:18 | Outpatient (CLI) | payer MEDICARE, OTHER, SELFPAY ==
--- NOTE | ~2023-05-27 | MM_ITS ---
EXAMINATION: MM screening [facility] BI w enma HISTORY: Screening mammogram TECHNIQUE: Craniocaudal and mediolateral oblique 3-D tomosynthesis images were obtained and synthetic 2-D images were generated. CAD analysis was submitted and interpreted. COMPARISON: 12/07/2021, 08/19/2020, 08/06/2019 BREAST PARENCHYMAL COMPOSITION: There are scattered areas of fibroglandular density. FINDINGS: No suspicious mass, calcification, or architectural distortion are identified in either tomasa ast to suggest malignancy. There has been no suspicious interval change. IMPRESSION: 1. No mammographic evidence of malignancy. 2. Recommend routine screening mammography in one year. BI-RADS Category 1: Negative Reviewed, dictated and finalized at location A. TRY OFFAL WORKER
== END ==
PROVIDERS: PCP Internal Medicine; Visit Provider Obstetrics & Gynecology
DX: Z12.31 Encounter for screening mammogram for malignant neoplasm of breast (principal)
CPT/HCPCS: 77063; 77067

== ENCOUNTER 2023-07-31 20:45 | Inpatient (IN) | payer MEDICARE, OTHER, SELFPAY ==
[2023-07-31] VITALS (15 sets, daily range): BP systolic 153–214; BP diastolic 69–86; PULSE 67–88; RESP 10–20; TEMP 37.3; O2SAT 97–100
--- NOTE | ~2023-07-31 | XR_ITS ---
EXAMINATION: XR chest 1V DATE: 07/31/2023 21:28 INDICATION: Weakness. Syncope. TECHNIQUE: A single frontal view of the chest was obtained. COMPARISON: Chest 2 views 07/04/2021 FINDINGS: There is mild scarring at the lung apices. A calcified left lung nodule and calcified left hilar lymph nodes are consistent with old granulomatous disease. No pleural effusion or pneumothorax. The heart size is normal. There is a left chest wall pacer with leads in the right atrium and right ventricle. IMPRESSION: 1. Stable mild scarring at the lung apices. Reviewed, dictated and finalized at location E.
--- NOTE | ~2023-07-31 | CT_ITS ---
EXAMINATION: CT facial bones wo con DATE: 07/31/2023 21:22 INDICATION: Head injury. TECHNIQUE: Computed tomography (CT) of the facial bones and maxillofacial region was performed withou t intravenous contrast. Automated exposure control and iterative reconstruction technique were employ ed. The dose-length product was 365.61 mGy-cm. COMPARISON: CT maxillofacial 11/17/2022 FINDINGS: There is mucosal thickening in the paranasal sinuses. There is hematoma in left maxillary s inus. There are likely changes of ocular lens replacement surgeries. There are fractures of the later al wall of left orbit and posterolateral wall of left maxillary sinus. There is a hematoma in left ch [place]. The mastoid air cells are normal. There is severe cervical spondylosis. IMPRESSION: 1. Fractures of the lateral wall of left orbit and posterolateral wall of left maxillary sinus. Reviewed, dictated and finalized at location E.
--- NOTE | ~2023-07-31 | CT_ITS ---
EXAMINATION: CT brain wo con DATE: 07/31/2023 21:22 INDICATION: Syncope. Head injury. TECHNIQUE: Computed tomography (CT) of the head was performed without intravenous contrast. The mA wa s adjusted according to patient size. Iterative reconstruction technique was employed. The dose-lengt h product was 908.00 mGy-cm. COMPARISON: Head CT 11/17/2022 FINDINGS: There is no intracranial hemorrhage, acute infarction, or abnormal intracranial mass lesion . The ventricles are normal in size. There is mucosal thickening in the paranasal sinuses. There is h ematoma in left maxillary sinus. There is a fracture of posterolateral wall of left maxillary sinus. There is a fracture of lateral wall of left orbit. The mastoid air cells are normal. There are likely changes of ocular lens replacement surgeries. There is a left cheek hematoma. IMPRESSION: 1. Normal brain. 2. Fractures of the lateral wall of left orbit and posterolateral wall of left maxillary sinus. Reviewed, dictated and finalized at location E.
--- NOTE | ~2023-07-31 | CT_ITS ---
EXAMINATION: CT cervical spine wo con DATE: 07/31/2023 21:22 INDICATION: Head injury. TECHNIQUE: Computed tomography (CT) of the cervical spine was performed without intravenous contrast. Automated exposure control and iterative reconstruction technique were employed. The dose-length pro duct was 153.50 mGy-cm. COMPARISON: None FINDINGS: There is mild scarring at the lung apices. There is 7 degrees levocurvature of cervical spi ne. There is 2 mm anterolisthesis of C4 on C5, C6 on C7, and C7 on T1. Vertebral body heights are nor mal. There is severely decreased disc height at C5-C6 and C6-C7 and mildly decreased disc height at C 7-T1. The following disc levels are specifically discussed: C2-C3: There is no uncovertebral joint osteoarthritis. There is severe bilateral facet joint osteoart hritis. There is mild left neural foraminal stenosis. There is no central canal stenosis. C3-C4: There is no uncovertebral joint osteoarthritis. There is severe bilateral facet joint osteoart hritis. There is mild right neural foraminal stenosis. There is no central canal stenosis. C4-C5: There is mild bilateral uncovertebral joint osteoarthritis. There is severe bilateral facet vinnie int osteoarthritis. There is mild bilateral neural foraminal stenosis. There is mild central canal st enosis. C5-C6: There is severe bilateral uncovertebral joint osteoarthritis. There is moderate right and mild left facet joint osteoarthritis. There is mild bilateral neural foraminal stenosis. There is mild ce ntral canal stenosis. C6-C7: There is severe right and moderate left uncovertebral joint osteoarthritis. There is severe bi lateral facet joint osteoarthritis. There is mild bilateral neural foraminal stenosis. There is mild central canal stenosis. C7-T1: There is no uncovertebral joint osteoarthritis. There is ankylosis of the facet joints without hypertrophy. There is no neural foraminal stenosis. There is no central canal stenosis. IMPRESSION: 1. No fracture. 2. Severe cervical spondylosis. Reviewed, dictated and finalized at location E.
--- NOTE | 2023-07-31 21:09 | PC.NURSE ---
Patient taken to imaging at this time via stretcher.
[2023-07-31 21:16] LABS: Basophils Absolute Auto 0.1 K/mm3 (0.0-0.1); Basophils Percent Auto 0.6 % (0.2-1.2); Eosinophils Absolute Auto 0.3 K/mm3 (0-0.3); Eosinophils Percent Auto 3.3 % (0-4.4); Hematocrit 36.3 % (37.0-47.0); Hemoglobin 11.8 g/dL (12.0-15.0); Immature Granulocyte Absolute 0.03 K/mm3 (0.00-0.031); Immature Granulocyte Percent A 0.3 % (0-0.5); Lymphocytes Absolute Auto 2.33 K/mm3 (0.9-3.2); Lymphocytes Percent Auto 22.7 % (18.3-44.2); Mean Corpuscular HGB Conc 32.5 g/dl (32-36); Mean Corpuscular Volume 92.4 fl (80-100); Mean Platelet Volume 9.1 fl (7.4-10.4); Monocytes Absolute Auto 1.5 K/mm3 (0.1-0.6); Monocytes Percent Auto 14.7 % (2.6-8.5); Neutrophils Percent Auto 58.4 % (45.5-73.1); Platelet Count Result 217 k/mm3 (150-375); Red Blood Count 3.93 M/mm3 (4.2-5.4); Red Cell Distribution Width 12.9 % (11.5-14.5); White Blood Count 10.3 K/mm3 (4.5-10.0)
[2023-07-31 21:27] LABS: Alanine Aminotransferase 23 U/L (6-35); Albumin Level 4.6 g/dL (3.5-5.1); Alkaline Phosphatase 127 U/L (38-126); Anion Gap 7 mmol/L (8-16); Aspartate Amino Transferase 36 U/L (14-36); Bilirubin,Total 0.5 mg/dL (0.2-1.3); Blood Urea Nitrogen 20 mg/dL (7-17); Calcium 9.4 mg/dL (8.4-10.2); Carbon Dioxide 27 mmol/L (22-30); Chloride 100 mmol/L (98-107); Estimated CRCL calculation 53 ml/min; Estimated Glomerular Filt Rate > 60; Glucose 122 mg/dL (65-110); Lactic Acid Reflex 1.2 mmol/L (0.7-2.0); Magnesium 1.8 mg/dL (1.6-2.3); Potassium 4.2 mmol/L (3.4-5.0); Sodium 134 mmol/L (137-145)
[2023-07-31 21:28] LABS: INR 2.1; Partial Thromboplastin Time 36.8 SECONDS (22.3-36.8); Prothrombin Time 24.8 Seconds (11.1-14.7)
[2023-07-31 21:38] LABS: Troponin I 0.015 ng/mL (0.000-0.034)
[2023-07-31 21:44] LABS: Procalcitonin 0.1 ng/mL
--- NOTE | 2023-07-31 21:49 | PC.NURSE ---
C-collar removed pr DYLON [place].
[2023-07-31 21:51] LABS: Influenza A QL RT-PCR Negative (Negative); Influenza B QL RT-PCR Negative (Negative); RSV RNA, RT-PCR Negative (Negative); SARS-CoV-2 RNA PCR Negative (Negative)
--- NOTE | 2023-07-31 22:53 | PC.NURSE ---
Attempted to call [facility] for patients interrogation report to be faxed, all numbers called state to call back during business hours M-FDottie ERP notified.
--- NOTE | 2023-07-31 23:23 | PM.IMHP ---
H&P: HPI History of Present Illness Date/Time: 07/31/23 23:23 Chief Complaint: FALL Narrative: THIS IS A 78-YEAR-OLD FEMALE WITH PAST MEDICAL HISTORY SIGNIFICANT FOR ATRIAL FIBRILLATION, RATE CONTROLLED ANTICOAGULATED, PACEMAKER IN PLACE, OSTEOARTHRITIS. PATIENT WAS FOUND UNRESPONSIVE AT HOME FAMILY RUSHED TO HER HELP AFTER HEARING A NOISE WHILE SHE WAS USING HER TREADMILL WAS FOUND LAYING NEXT TO IT UNRESPONSIVE. PATIENT HAS NO RECOLLECTION OF EVENTS. SHE BELIEVES SHE MIGHT HAVE HAD A SYNCOPAL EPISODE BUT UNSURE. PRELIMINARY WORKUP HERE WAS SIGNIFICANT FOR FRACTURES OF THE ORBITAL BONE AND MAXILLARY SINUS REST OF THE WORKUP WAS ESSENTIALLY NONREVEALING. PATIENT HAS BEEN PLACED IN OBSERVATION FOR FURTHER EVALUATION MANAGEMENT AND TREATMENT. EXAMINATION: CT brain wo con DATE: 07/31/2023 21:22 INDICATION: Syncope. Head injury. TECHNIQUE: Computed tomography (CT) of the head was performed without intravenous contrast. The mA was adjusted according to patient size. Iterative reconstruction technique was employed. The dose-length product was 908.00 mGy-cm. COMPARISON: Head CT 11/17/2022 FINDINGS: There is no intracranial hemorrhage, acute infarction, or abnormal intracranial mass lesion. The ventricles are normal in size. There is mucosal thickening in the paranasal sinuses. There is hematoma in left maxillary sinus. There is a fracture of posterolateral wall of left maxillary sinus. There is a fracture of lateral wall of left orbit. The mastoid air cells are normal. There are likely changes of ocular lens replacement surgeries. There is a left cheek hematoma. IMPRESSION: 1. Normal brain. 2. Fractures of the lateral wall of left orbit and posterolateral wall of left maxillary sinus. EXAMINATION: XR chest 1V DATE: 07/31/2023 21:28 INDICATION: Weakness. Syncope. TECHNIQUE: A single frontal view of the chest was obtained. COMPARISON: Chest 2 views 07/04/2021 FINDINGS: There is mild scarring at the lung apices. A calcified left lung nodule and calcified left hilar lymph nodes are consistent with old granulomatous disease. No pleural effusion or pneumothorax. The heart size is normal. There is a left chest wall pacer with leads in the right atrium and right ventricle. IMPRESSION: 1. Stable mild scarring at the lung apices. Review of Systems Review of Systems: LOSS OF CONSCIOUSNESS, FALL, TRAUMA TO THE FACE AND HEAD PMFSH Past Medical History Medical History Allergies Anemia Ankle fracture Chicken pox Colon cancer screening Constipation Hernia Rectal History of fracture of patella History of squamous cell carcinoma History of stillbirth Hypertension Multiple sclerosis Osteoarthritis Patella fracture Prediabetes Sciatica Vitamin deficiency Surgical History Surgical History H/O: hysterectomy History of permanent cardiac pacemaker placement History of removal of pigmented skin lesion History of right hip replacement (~06/2022) Previous back surgery Spinal decompression surgery 04/2019 S/P ORIF (open reduction internal fixation) fracture Patella Status post tonsillectomy Family History Family History Father Congestive heart failure Hypertension Mother Family history of malignant neoplasm of ovary Myocardial infarction Sibling H/O gastric bypass Malignant neoplasm of prostate Cerebrovascular accident Daughter Francesco's disease Other Obstructive sleep apnea Social History Social History Social History: Lives alone. She is . She has 2 children. Her daughter is a durable power health care attorney for healthcare. The patient will allow herself to be a full code but does not want to be in a vegetative state. The patient is retired fro
--- NOTE | 2023-07-31 23:29 | ED.GENADULT ---
HPI - General Adult General Chief complaint: Syncope Stated complaint: fall, syncope Time Seen by Provider: 07/31/23 20:52 History of Present Illness HPI narrative: Patient is a 78-year-old female who presents emergency department with chief complaint of possible syncope. Patient is on Eliquis for atrial fibrillation and reports that she was exercising on a treadmill family heard thud and found her having fallen on the left side of her face. The patient was initially unresponsive to family and initially can then came around. Patient complains of pain on the left side of her face otherwise does not have any other complaint. Related Data Home Medications Medication Instructions Recorded Confirmed acetaminophen 650 mg 1,300 mg PO HS 07/04/21 03/23/23 tablet,extended release (Tylenol Arthritis Pain) cetirizine 10 mg tablet (Zyrtec) 10 mg PO DAILY PRN Allergy Symptoms 07/04/21 03/23/23 dofetilide 250 mcg capsule 250 mcg PO Q12H 08/07/21 03/23/23 (Tikosyn) metoprolol succinate 25 mg 12.5 mg PO BID 11/19/21 03/23/23 tablet,extended release 24 hr rivaroxaban 20 mg tablet 20 mg PO DAILY 11/19/21 03/23/23 baclofen 10 mg tablet 10 mg PO TID Pain 03/23/23 03/23/23 cholecalciferol (vitamin D3) 25 25 mcg PO DAILY 03/23/23 03/23/23 mcg (1,000 unit) capsule Allergies Allergy/AdvReac Type Severity Reaction Status Date / Time latex Allergy Mild Skin Verified 07/31/23 21:01 breaks out procaine AdvReac Severe Tachycardia Verified 07/31/23 21:01 Review of Systems Review of Systems: A 10 system review of systems was completed on the patient and is negative except for what is stated in the HPI. Nursing and ancillary documentation was reviewed. [facility] Past Medical History Medical History Allergies Anemia Ankle fracture Chicken pox Colon cancer screening Constipation Hernia Rectal History of fracture of patella History of squamous cell carcinoma History of stillbirth Hypertension Multiple sclerosis Osteoarthritis Patella fracture Prediabetes Sciatica Vitamin deficiency Surgical History Surgical History H/O: hysterectomy History of permanent cardiac pacemaker placement History of removal of pigmented skin lesion History of right hip replacement (~06/2022) Previous back surgery Spinal decompression surgery 04/2019 S/P ORIF (open reduction internal fixation) fracture Patella Status post tonsillectomy Family History Family History Father Congestive heart failure Hypertension Mother Family history of malignant neoplasm of ovary Myocardial infarction Sibling H/O gastric bypass Malignant neoplasm of prostate Cerebrovascular accident Daughter Francesco's disease Other Obstructive sleep apnea Social History Social History Social History: Lives alone. She is . She has 2 children. Her daughter is a durable power trust and estates attorney for healthcare. The patient will allow herself to be a full code but does not want to be in a vegetative state. The patient is retired from [employer]. Lifelong nonsmoker. Does not use any alcohol marijuana or illicit drugs. Code status full code Caffeine- coffee daily Smoking status: Never smoker Second hand tobacco smoke exposure: No Alcohol intake: current Alcohol use details: occasionally Substance use: never Substance use type: does not use Lack of Transportation: No Lack of Food: Never True Current Housing: I Have Housing Concerned About Future Housing: No Difficulty Paying Gas/Electric Bills: No Difficulty Paying for Meds: No Currently Unemployed: No Education: Associate Degree Difficulty w/ Childcare or Family Care: No Living arrangements: alone Gender
[2023-08-01] VITALS (29 sets, daily range): BP systolic 107–179; BP diastolic 49–81; PULSE 60–149; RESP 12–18; TEMP 36.1–37.8; O2SAT 97–100
--- NOTE | 2023-08-01 | ECHO_ITS ---
Patient Info Name: June Razo Age: 78 years : 1945 Gender: Female Ht: 68 in Wt: 156 lbs BSA: 1.85 m2 HR: 76 bpm BP: 153 / 78 mmHg Heart Rhythm: Sinus Rhythm Technical Quality: Good Exam Date: 08/01/2023 12:08 PM Exam Location: Echo Lab Patient Status: Outpatient Admit Date: 07/31/2023 Staff Ordering Physician: Mitchell De Leon MD Executive Candidate Developer: Chantal Landaverde RDCS Attending Provider: Mitchell De Leon MD Referring Physician: Haley FUENTES; Exam Type: CA echo doppler color flow Study Info Indications R55 - Syncope and collapse Strain analysis performed. Complete two-dimensional, color flow and Doppler transthoracic echocardiogram is performed. Summary 1. Complete two-dimensional, color flow and Doppler transthoracic echocardiogram is performed. 2. Left ventricular chamber dimension is normal. 3. Left ventricular systolic function is hyperdynamic, estimated at >70%. 4. The left ventricular diastolic function is normal. 5. Global longitudinal strain is normal at -24.7%. 6. Linear artifact in right ventricle suggestive of catheter(s), pacemaker lead(s), or ICD lead(s). 7. Left atrial chamber dimension is mildly enlarged. 8. Linear artifact in the right atrium suggestive of catheter(s), pacemaker lead(s), or ICD lead(s). 9. There is mild to moderate tricuspid valve regurgitation. 10. No pulmonary hypertension, estimated pulmonary arterial systolic pressure is 33 mmHg. 11. There is trace pulmonic regurgitation. Left Ventricle Global longitudinal strain is normal at -24.7%. Tissue doppler E/e' is not performed. Left ventricular chamber dimension is normal. Left ventricular systolic function is hyperdynamic, estimated at >70%. The left ventricular diastolic function is normal. Right Ventricle Right ventricular systolic function is normal and with normal TAPSE 2.6 cm. Linear artifact in right ventricle suggestive of catheter(s), pacemaker lead(s), or ICD lead(s). Right ventricular chamber dimension is normal. Left Atria Left atrial chamber dimension is mildly enlarged. Right Atria Linear artifact in the right atrium suggestive of catheter(s), pacemaker lead(s), or ICD lead(s). Right atrial chamber dimension is normal. Aortic Valve The aortic valve is trileaflet. There is no aortic valve stenosis. There is no aortic valve regurgitation. Pulmonic Valve There is trace pulmonic regurgitation. Mitral Valve There is no mitral valve stenosis. There is no mitral valve regurgitation. Tricuspid Valve There is mild to moderate tricuspid valve regurgitation. No pulmonary hypertension, estimated pulmonary arterial systolic pressure is 33 mmHg. Pericardium/Pleural There is no pericardial effusion. Inferior Vena Cava Normal inferior vena cava with >50% collapse upon inspiration consistent with normal right atrial pressure, 5 mmHg. Aorta The aortic root size at the sinus of Valsalva is normal. Left Ventricular Outflow Tract Name Value Normal LVOT 2D LVOT Diameter 2.0 cm LVOT Doppler LVOT Peak Gradient 6 mmHg LVOT Mean Gradient 3 mmHg LVOT VTI 23 cm LVOT VTI/AV VTI Ratio
[2023-08-01 00:36] LABS: Appearance Urine Clear (Clear); Bilirubin Urine Negative (Negative); Blood Urine Negative (Negative); Color Urine Yellow (Yellow); Glucose Urine UA Negative (Negative); Ketones Urine Negative (Negative); Leukocyte Esterase Ur Negative LEU/UL (Negative); Nitrate Urine Negative (Negative); Protein Urine Negative (Negative); Urobilinogen Urine 0.2 mg/dL (<2.0)
[2023-08-01 00:47] LABS: Add Urine Microscopic? NO
[2023-08-01 00:54] LABS: Troponin I 0.098 ng/mL (0.000-0.034)
[2023-08-01] MEDS: ASPIRIN 81 MG CHEWABLE TABLET 324 MG PO (01:11)
--- NOTE | 2023-08-01 01:17 | PC.NURSE ---
this rn spoke with EDP Dr. Choi for a vorb of pain medication. Pt requested Tylenol PO. This RN verbalized that to edp dr. choi. EDP vorb 1000mg of Tyenol PO for pt. This RN used closed loop communication to confirm medication. route. time. patient. dose.
[2023-08-01] MEDS: ACETAMINOPHEN 500 MG TABLET 1000 MG PO (01:19)
--- NOTE | 2023-08-01 02:03 | ADMGEN ---
This patient, June Razo, was admitted to IMU Room 214-01 at 0155. Patient/family oriented to hospital policies and general routines including ID bracelet, bed and alarms, visiting hours, pain management, procedures, bathroom and other care routines, personal items, smoking policy, room service/diet, and visiting hours. Information on how to activate the Rapid Response Team has been discussed. Patient/Family are encouraged to report perceived risks to care and to ask questions if they do not understand what they are told or what they should do.
[2023-08-01] MEDS: CHOLECALCIFEROL 1,000 UNITS TABLET 1000 UNITS PO (08:44)
[2023-08-01] MEDS: METOPROLOL TARTRATE 50 MG TAB PO ×2 (08:44→21:37)
[2023-08-01] MEDS: lisinopriL 20 MG TABLET 40 MG PO (08:44)
--- NOTE | 2023-08-01 09:03 | PC.NURSE ---
Pt in AFib with RVR. Aymptomatic. Dr. Mendoza at bedside. PO metoprolol given. Will continue to monitor
[2023-08-01] MEDS: ACETAMINOPHEN 500 MG TABLET 1000 MG BY MOUTH ×2 (10:38→18:37)
[2023-08-01] MEDS: BACLOFEN 10 MG TABLET PO ×3 (10:38→18:37)
[2023-08-01] MEDS: RIVAROXABAN 20 MG TABLET PO (11:42)
--- NOTE | 2023-08-01 18:23 | PM.IMPN ---
Progress Note: A&P Assessment and Plan (1) Syncope: Code(s): R55 - Syncope and collapse Status: Acute (2) Head injury: Code(s): S09.90XA - Unspecified injury of head, initial encounter Status: Acute (3) Facial fracture: Code(s): S02.92XA - Unspecified fracture of facial bones, initial encounter for closed fracture Status: Acute (4) Pacemaker: Code(s): Z95.0 - Presence of cardiac pacemaker Status: Acute (5) Atrial flutter, paroxysmal: Code(s): I48.92 - Unspecified atrial flutter Status: Acute Plan # syncope -patient has pacemaker, awaiting interrogation report -she has a history of having episodes of AFib with RVR -apparently has had her carotids evaluated within the last several months, no significant coronary disease -patient has no seizure disorder -echocardiogram shows EF greater than 70%, normal diastolic function # left eye orbital fracture -patient traumatic injury left eye, recommendation for pain control -pain control p.r.n. Tylenol -CT facial bone shows fracture of lateral wall left orbit, posterior lateral wall of left maxillary sinus #Chronic conditions -AFib with RVR: RVR resolved resuming home medications, anticoagulation Xarelto, rate control with metoprolol and Tikosyn -allergies: Claritin -essential hypertension: Metoprolol, lisinopril -vitamin-D deficiency: Vitamin-D supplement -muscle spasm: Baclofen q.8 hours -hyperlipidemia: Lipitor Diet: Heart healthy DVT prophylaxis: On Xarelto Code status: Full code Disposition: Likely home tomorrow Time Spent With Patient Time: 35 minutes Subjective Date/time seen: 08/01/23 18:23 Interval history: Patient seen examined. She was admitted overnight with syncopal episode. She has a pacemaker which was interrogated however we are unable to find interrogation. In the morning she had an episode of AFib with RVR heart rate going up to 150s. After resuming home metoprolol and Tikosyn she came back to baseline being pacemaker dependent. She is currently asymptomatic during her hospitalization. Echocardiogram shows LV creatinine is 5%, normal LV diastolic function. Patient likely to go home on her home regimen and follow-up with her EP want ad receiver Dr. Lorenz. We are awaiting the pacemaker interrogation results. Review of Systems Review of Systems: 10 point ROS complete, negative other than what is specified in HPI. Exam Narrative: - GENERAL: Pleasant woman no acute distress. Well-nourished. - EYES: EOMI. Anicteric. - HENT: Moist mucous membranes. Traumatic left eye socket raccoon eye - LUNGS: Clear to auscultation bilaterally, no wheezing, rhonchi, or rales. - CARDIOVASCULAR: Regular rate and rhythm. No murmur. No JVD. - ABDOMEN: Soft, non-tender and non-distended. No palpable masses. - EXTREMITIES: No edema. Peripheral pulses 2+. Non-tender. - NEUROLOGIC: No focal neurological deficits. CN II-XII grossly intact. - PSYCHIATRIC: Awake, Alert and oriented x 3. Appropriate mood and affect. - SKIN: No rashes or lesions. Warm. - LYMPH: No cervical lymphadenopathy. Objective Data Vital Signs Vital Signs: Vital Signs - 24 hr 07/31/23 20:48 07/31/23 20:54 07/31/23 21:04 Temperature 37.3 C 37.3 C Pulse Rate 80 83 75 Respiratory Rate 15 20 15 Blood Pressure 214/86 H 193/81 H Pulse Oximetry 100 100 100 Oxygen Delivery Room Air Room Air 07/31/23 21:29 07/31/23 21:30 07/31/23 21:31 Temperature Pulse Rate 75 78 75 Respiratory Rate 12 15 13 Blood Pressure 180/77 H 178/83 H Pulse Oximetry 100 100 100 Oxygen Delivery 07/31/23 21:32 07/31/23 22:08 07/31/23 22:18 Temperature Pulse Rate 88 74 73 Respiratory Rate 14 14 12 Blood Pressure 176/71 H Pulse Oximetry 97 Oxygen Delivery 07/31/23 22:31 07/31/23 23:01 07/31/23 23:02 Temperature Pulse Rate 72 70 67 Respiratory Rate 14 17 15 Blood Pressure 171/78 H 163/75 H Pulse Oximetry 100 100
[2023-08-01] MEDS: ATORVASTATIN 40 MG TABLET PO (21:36)
[2023-08-02] VITALS (9 sets, daily range): BP systolic 122–147; BP diastolic 52–70; PULSE 60–61; RESP 14–18; TEMP 36.3–36.9; O2SAT 97–100
[2023-08-02 04:38] LABS: Anion Gap 3 mmol/L (8-16); Blood Urea Nitrogen 17 mg/dL (7-17); Calcium 8.9 mg/dL (8.4-10.2); Carbon Dioxide 26 mmol/L (22-30); Chloride 102 mmol/L (98-107); Estimated CRCL calculation 51 ml/min; Estimated Glomerular Filt Rate > 60; Glucose 108 mg/dL (65-110); Magnesium 1.9 mg/dL (1.6-2.3); Potassium 4.3 mmol/L (3.4-5.0); Sodium 131 mmol/L (137-145)
[2023-08-02] MEDS: BACLOFEN 10 MG TABLET PO (05:43)
[2023-08-02] MEDS: ACETAMINOPHEN 500 MG TABLET 1000 MG PO (05:44)
[2023-08-02] MEDS: METOPROLOL TARTRATE 50 MG TAB PO (08:33)
[2023-08-02] MEDS: lisinopriL 20 MG TABLET 40 MG PO (08:33)
[2023-08-02] MEDS: CHOLECALCIFEROL 1,000 UNITS TABLET 1000 UNITS PO (08:33)
[2023-08-02 10:23] LABS: Basophils Percent Auto 0.4 % (0.2-1.2); Eosinophils Absolute Auto 0.3 K/mm3 (0-0.3); Eosinophils Percent Auto 3.5 % (0-4.4); Hematocrit 31.3 % (37.0-47.0); Hemoglobin 10.1 g/dL (12.0-15.0); Immature Granulocyte Absolute 0.03 K/mm3 (0.00-0.031); Immature Granulocyte Percent A 0.4 % (0-0.5); Lymphocytes Absolute Auto 1.42 K/mm3 (0.9-3.2); Lymphocytes Percent Auto 19.6 % (18.3-44.2); Mean Corpuscular HGB Conc 32.3 g/dl (32-36); Mean Corpuscular Hemoglobin 30.2 pg (26-34); Mean Corpuscular Volume 93.7 fl (80-100); Mean Platelet Volume 8.8 fl (7.4-10.4); Monocytes Absolute Auto 1.1 K/mm3 (0.1-0.6); Monocytes Percent Auto 15.8 % (2.6-8.5); Neutrophils Absolute Auto 4.4 K/mm3 (1.3-6.7); Neutrophils Percent Auto 60.3 % (45.5-73.1); Platelet Count Result 173 k/mm3 (150-375); Red Blood Count 3.34 M/mm3 (4.2-5.4); Red Cell Distribution Width 13.1 % (11.5-14.5); White Blood Count 7.2 K/mm3 (4.5-10.0)
--- NOTE | 2023-08-02 11:10 | PM.DS ---
DS: Admitting Diagnosis Discharge Date August 02, 2023 Admitting Diagnosis Syncope DS: Discharge Diagnosis Discharge Diagnosis (1) Syncope: Code(s): R55 - Syncope and collapse Status: Acute (2) Head injury: Code(s): S09.90XA - Unspecified injury of head, initial encounter Status: Acute (3) Facial fracture: Code(s): S02.92XA - Unspecified fracture of facial bones, initial encounter for closed fracture Status: Acute DS: Summary Hospital Course Hospital Course: This is a 78-year-old female with a past medical history atrial fibrillation on Xarelto, permanent pacemaker insertion, osteoarthritis, hypertension who presents after a syncopal episode. It was unwitnessed. Patient denies any seizure activity or palpitations just prior to the episode. On arrival she was found to be in AFib with RVR. Upon resumption of her home medications she converted to an atrial paced rhythm. CT of facial bones without contrast demonstrating fractures lateral wall of left orbit and posterolateral wall the left maxillary sinus. Pacemaker interrogation demonstrating episodes of AFib with RVR although these were not coinciding with her syncope at 7:30 p.m. on 07/31/2023. CT head negative for acute intracranial process. Telemetry did not demonstrate any further abnormalities aside from atrial paced rhythm. On 08/02/2023 the patient is discharged to home with family in stable condition. They are going to follow up with known oral facial maxillary surgeon her facial fractures. No complications noted here. As well, Dr. Jarred Anaya her director utilization management has been informed of her situation and no further recommendations have been provided. The patient has been instructed to not exercise or drive and to follow up with Dr. Anaya for further management. She and the daughter Page were amenable to this plan. Surface echocardiogram demonstrating hyperdynamic left ventricle with normal diastolic dysfunction. Orthostatic blood pressures negative. Patient was full code during her admission. Time Spent with Patient Time attestation: Total time spent providing and/or coordinating discharge services: Exam Const: General: cooperative and no acute distress Resp: Effort & Inspection: normal respiratory effort Auscultation: clear to auscultation bilaterally Cardio: Rate: regular rate Rhythm: regular rhythm Heart sounds: S1 normal heart sound present and S2 normal heart sound present GI: GI Palp: No abdominal tenderness Auscultation: normal bowel sounds DS: Data Data Completed and Pending Labs on day of discharge: Labs from last 24 hours 08/02/23 08/02/23 08/02/23 10:18 10:14 04:09 WBC 7.2 RBC 3.34 L Hgb 10.1 L Hct 31.3 L MCV 93.7 MCH 30.2 MCHC 32.3 RDW 13.1 Plt Count 173 MPV 8.8 Immature Gran % (Auto) 0.4 Neut % (Auto) 60.3 Lymph % (Auto) 19.6 [place] % (Auto) 15.8 H Eos % (Auto) 3.5 Baso % (Auto) 0.4 Lymph # (Auto) 1.42 [place] # (Auto) 1.1 H Eos # (Auto) 0.3 Baso # (Auto) 0.0 Abs Immat Gran (auto) 0.03 Absolute Neuts (auto) 4.4 Absolute Nucleated RBC 0.0 Nucleated RBC % 0.0 Sodium 131 L Potassium 4.3 Chloride 102 Carbon Dioxide 26 Anion Gap 3 L BUN 17 Creatinine 0.80 Estim Creat Clear Calc 51 Estimated GFR > 60 Glucose 108 Calcium 8.9 Magnesium 1.9 Troponin I Pending Procalcitonin Pending Discharge Plan Discharge Attending physician on discharge: Azalia Todd Discharging Clinician: Azalia Todd Patient Disposition: Home, Self-Care Activity: no straining, no driving and other - see discharge instructions Diet: regular Discharge Instructions: f/u with Dr. Anaya as we discussed. f/u with oral and facial surgery no exercise until seen by Dr. Anaya Patient Instructions: Antibiotic Form, Rivaroxaban (By mouth), Facial Fracture (GEN), Syncope (D
[2023-08-02 11:25] LABS: Troponin I 0.026 ng/mL (0.000-0.034)
[2023-08-02 11:25] LABS: Procalcitonin 0.1 ng/mL
--- NOTE | 2023-08-02 12:27 | PC.NURSE ---
08/02/23, at 1213pm discharged home.
== END 2023-08-02 12:13 | disposition home or self-care (01) | DRG 158 ==
LOC: ANHED 23:33 → ANHIMU 08-01 01:25
PROVIDERS: Student in an Organized Health Care Education/Training Program; Admitting Provider Internal Medicine; Emergency Provider Emergency Medicine; PCP Internal Medicine; Visit Provider General Practice
DX: S02.40DA Maxillary fracture, left side, initial encounter for closed fracture (principal); S02.842A Fracture of lateral orbital wall, left side, initial encounter for closed fracture; X58.XXXA Exposure to other specified factors, initial encounter; E78.5 Hyperlipidemia, unspecified; E55.9 Vitamin D deficiency, unspecified; G47.33 Obstructive sleep apnea (adult) (pediatric); G35 Multiple sclerosis; I48.91 Unspecified atrial fibrillation; I12.9 Hypertensive chronic kidney disease with stage 1 through stage 4 chronic kidney disease, or unspecified chronic kidney disease; M48.00 Spinal stenosis, site unspecified; M19.90 Unspecified osteoarthritis, unspecified site; N18.9 Chronic kidney disease, unspecified; R55 Syncope and collapse; Z95.0 Presence of cardiac pacemaker; Z79.01 Long term (current) use of anticoagulants; Z90.710 Acquired absence of both cervix and uterus; Z85.828 Personal history of other malignant neoplasm of skin; Z96.641 Presence of right artificial hip joint
CPT/HCPCS: 36415; 70450; 70486; 71045; 72125; 80048; 80053; 81003; 83605; 83735; 84145; 84484; 85025; 85610; 85730; 87637; 93306; 99285; A9270; G0378

== ENCOUNTER 2023-11-08 14:00 | Outpatient (RCR) | payer MEDICARE, OTHER, SELFPAY ==
--- NOTE | 2023-09-16 15:30 | PTOPEVAL1 ---
Assessment and note entered by Libra Jolly, PT Evaluation Information Assessment Status Evaluation Diagnosis weakness, unsteadiness on feet. Onset ~9 months ago Subjective Information Pt reports MS for 34 years. Last November had a bad fall, went to emergency room. Her children stated she had to use a cane which she has been. July of this year passed out and fell, fractured eye socket. Weakness is from fall. When has an event it takes a while to recover. States MS is usually fine unless has an event. States is feeling stronger, exercises and does cardio, does fast walking and HIIT. Pt states this is 3rd time she has done therapy for her balance. Has chronic back pain since 18. Hysterectomy 20 years. RLE longer after surgery, prior to surgery LLE was longer. Pt reports will have days where balance is pretty good and days that is lowsy . States when tired is a factor, and weather is a factor. Notes left turning and has to catch balance. Turning left coming out of bedroom around a corner 01/30 will hit left wall. Also will feel like is loosing balance backwards when standing especially with looking up. In home does pretty good, but outside with everything balance is off and with movement around her. Reported Pain Level Pain Score 0: Self Report Assessment PT Clinical Summary Pt presents with complaints of weakness, balance deficit, and difficulty in walking. Pt has MS, was diagnosed over 30 years ago. Notes when she has an event it takes her a while to return to her baseline with her most recent event being a fall last November. In addition to MS, she also has chronic back pain, has histroy of abdominal surgery, and right total hip replacement ~ 1 year ago. She reports change in leg length discrepancy but that her ortho stated he wanted the RLE to be longer to prevent hip dislocation. Evaluation shows global weakness in tested hip muscles, significantly decreased balance with eyes closed activities, poor stability with posterior center of gravity shifting in standing. Pt was educated on findings and verbalizes she feels current plan in therapy will be very he
--- NOTE | 2023-09-16 15:30 | OPREHPOC ---
Outpatient Therapy Plan of Care This is a Multidisciplinary Plan of Care that may contain components documented by all disciplines (PT, OT, and ST.) PT Problem 1 PT Problem #1 Knowledge Deficit PT Goal 1 Goal Pt will be independent in HEP Pt will verbalize understanding of diagnosis and prognosis Target Visit 10 PT Problem 2 PT Problem #2 Impaired Balance PT Goal 1 Goal Pt will demo improved balance with eyes closed by 5 seconds in any position Target Visit 10 PT Goal 2 Goal Pt will demo firm surface, feet together, eyes closed balance of 30 seconds Target Visit 20 PT Problem 3 PT Problem #3 Impaired Strength PT Goal 1 Goal Pt will demo LE strenght in hip extension and abduction to 4/5 in allowable testing planes Target Visit 20 PT Goal 2 Goal Pt will demo improved strength and stability of LLE by demonstrating ease of turning left around a corner while walking Target Visit 20 PT Problem 4 PT Problem #4 Impaired Functional Mobil PT Goal 1 Goal Pt will demo ability to perform sit to stand x 5 without UEs Target Visit 10 PT Goal 2 Goal Pt will demo ability to perform sit to stand x 5 without UEs, with appropriate LE alignment in 20 seconds or less Target Visit 20
--- NOTE | 2023-11-08 15:09 | PTOPDC ---
Assessment and note entered by Gerri Pulliam, PT Discharge Information Assessment Status Discharge Diagnosis weakness, unsteadiness on feet. Onset ~9 months ago Subjective Information Pt reports that the lady who does her hair commented that she is walking better and was amazed that she is not using the cane anymore. States she is noticing that her balance has greatly improved. Reported Pain Level Pain Score 0: Self Report Assessment PT Clinical Summary Pt has met (and exceeded some) established goals, compliant with HEPs. Noticeable improvement with posture and gait mechanics. Reports she feels like she is doing much better than when she first started. Skilled PT discontinued at this time. Plan of Care PT Services Indicated No
== END 2023-11-09 08:24 | disposition home or self-care (01) ==
LOC: ANHHIPT 14:00
PROVIDERS: PCP Internal Medicine; Visit Provider Nurse Practitioner
DX: R53.1 Weakness (principal); R26.81 Unsteadiness on feet
CPT/HCPCS: 97110; 97112; 97116; 97162; 97530; 97750

== ENCOUNTER 2024-05-30 10:44 | Outpatient (CLI) | payer MEDICARE, OTHER, SELFPAY ==
--- NOTE | ~2024-05-30 | MM_ITS ---
EXAMINATION: MM screening omid BI w enma HISTORY: Screening TECHNIQUE: Craniocaudal and mediolateral oblique 3-D tomosynthesis images were obtained and synthetic 2-D images were generated. CAD analysis was submitted and interpreted. COMPARISON: Comparison to multiple prior studies sequentially, with oldest reviewed study dated 07/2016. BREAST PARENCHYMAL COMPOSITION: Not dense: There are scattered areas of fibroglandular density. FINDINGS: There is no evidence of suspicious mass, calcification, or architectural distortion to sugg est malignancy in either breast. There has been no suspicious interval change. IMPRESSION: 1. No mammographic evidence of malignancy. 2. Recommend routine screening mammography in one year. BI-RADS Category 1: Negative Reviewed, dictated and finalized at location B. [facility]
== END 2024-05-30 10:45 | disposition home or self-care (01) ==
LOC: MICIMG 10:46
PROVIDERS: PCP Internal Medicine; Visit Provider Obstetrics & Gynecology
DX: Z12.31 Encounter for screening mammogram for malignant neoplasm of breast (principal)
CPT/HCPCS: 77063; 77067

== ENCOUNTER 2024-10-16 12:01 | Outpatient (CLI) | payer MEDICARE, OTHER, SELFPAY ==
--- NOTE | ~2024-10-16 | XR_ITS ---
XR hip LT min 2V 10/16/2024 12:30 Indication: Left hip pain Procedure: 2 views left hip Comparison: No prior studies for comparison. Findings: Mild osteoarthritis of the left hip. No fracture, subluxation or dislocation. No soft tissu e abnormality. No foreign body. Impression: 1: Mild osteoarthritis of the left hip. Reviewed, dictated and finalized at location A. Impression: 1: Mild osteoarthritis of the left hip.
== END 2024-10-16 12:02 | disposition home or self-care (01) ==
PROVIDERS: PCP Clinical Nurse Specialist; Visit Provider Clinical Nurse Specialist
DX: M16.12 Unilateral primary osteoarthritis, left hip (principal)
CPT/HCPCS: 73502

== ENCOUNTER 2024-11-29 09:42 | Outpatient (CLI) | payer MEDICARE, OTHER, SELFPAY ==
--- NOTE | ~2024-11-29 | DEXA_ITS ---
Bone Density Report Name: YADIRA DELGADILLO Age: 79 Sex: Female Ethnicity: White Date of : 1945 Indication: osteopenia; height loss; prior fracture; hysterectomy; Referring Provider: Cielo George Study: Bone densitometry was performed. Exam Date: November 29, 2024 Accession number: [id number] Bone Density: Region BMD T-score Z-score Classification AP Spine(L1-L4) 0.968 -0.7 2.0 Normal Femoral Neck (Left) 0.860 0.1 2.4 Normal Total Hip (Left) 0.904 -0.3 1.7 Normal World Health Organization criteria for BMD impression classify patients as: Normal (T-score at or above -1.0), Osteopenia (T-score between -1.0 and -2.5), or Osteoporosis (T-score at or below -2.5). 10-year Fracture Risk: FRAX not reported because: All T-scores for Spine Total, Hip Total, Femoral Neck at or above -1.0 Previous Exams: -- Region Exam Age BMD T-score BMD Change BMD Change Date g/cm2 vs Baseline vs Previous -- AP Spine (L1-L4) 11/29/2024 79 0.968 -0.7 -13.3%* 4.3%* 02/17/2022 77 0.928 -1.1 -16.9%* -16.9%* 04/18/2018 73 1.117 0.6 Total Hip(Left) 11/29/2024 79 0.904 -0.3 -15.2%* -4.6%* 02/17/2022 77 0.948 0.0 -11.1%* -11.1%* 04/18/2018 73 1.066 1.0 -- *Denotes significance at 95% confidence level, LSC for AP Spine = 0.022 g/cm2, LSC for Total Hip = 0.027 g/cm2 Clinical Information Provided by Patient: Has had a low trauma fracture Has used the following medications: HRT (i.e. estrogen/hormone therapy), Vitamin D Has the following medical conditions: Hysterectomy Patient maximum height was 69 Menopause Age: 57 Drinks caffeinated beverages Onset of menses at age 12 Number of children 2 Impression: The patient has normal bone mass. The patient has risk factors, including: previous fracture. The BMD for the Total Hip(Left) decreased, changing by -4.6% since the last DXA exam. Discussion: BONE DENSITY IS ABOVE THE MINIMUM DESIRABLE LEVEL AT ALL SKELETAL SITES TESTED. This patient?s bone mineral density is above the minimum desirable level (T-score -1.0 or better) at all sites measured. The patient should follow a healthful lifestyle (good nutrition with adequate calcium and vitamin D, and appropriate weight-bearing exercise). Follow-Up: Consider repeating this study in 3 to 4 years to reassess this patient's status, or sooner if there is some new clinical indication. Reported by: ALECIA on 11/29/2024 10:04:00 AM. Reviewed, dictated and finalized at location A.
== END 2024-11-29 09:43 | disposition home or self-care (01) ==
LOC: MICIMG 09:43
PROVIDERS: PCP Clinical Nurse Specialist; Visit Provider Clinical Nurse Specialist
DX: Z78.0 Asymptomatic menopausal state (principal)
CPT/HCPCS: 77080

== ENCOUNTER 2025-02-10 10:24 | Emergency (ER) | payer MEDICARE, OTHER, SELFPAY ==
--- NOTE | 2025-02-10 10:30 | ED.GENADULT ---
HPI - General Adult General Chief complaint: Dizziness Stated complaint: DIZZY Time Seen by Provider: 02/10/25 10:37 Source: patient Mode of arrival: ambulatory Limitations: no limitations History of Present Illness HPI narrative: 80-year-old female with a history of MS presents with concern of for sinus congestion, ear pressure and dizziness. She denies chest pain, shortness of breath. She reports she took an antihistamine and saline spray this morning. She denies weakness in any extremity, difficulty speaking, difficulty swallowing. MD complaint: Nasal congestion Related Data Home Medications ?Medication ?Instructions ?Recorded ?Confirmed ?Last Taken ?Type cetirizine 10 mg tablet (Zyrtec) 10 mg PO DAILY PRN Allergy Symptoms 07/04/21 10/16/24 Unknown History dofetilide 250 mcg capsule 250 mcg PO Q12H 08/07/21 10/16/24 07/31/23 History (Tikosyn) baclofen 10 mg tablet 10 mg PO TID Pain 03/23/23 10/16/24 07/31/23 History cholecalciferol (vitamin D3) 25 25 mcg PO DAILY 03/23/23 10/16/24 07/31/23 History mcg (1,000 unit) capsule metoprolol tartrate 50 mg tablet 50 mg PO BID 08/01/23 10/16/24 07/31/23 History rivaroxaban 20 mg tablet (Xarelto) 20 mg PO QNOON 08/01/23 10/16/24 07/31/23 History acetaminophen 500 mg tablet 500 mg PO Q6H PRN 08/15/23 10/16/24 Unknown History (Tylenol Extra Strength) amitriptyline 10 mg tablet 10 mg PO QHS 04/12/24 10/16/24 Unknown History Allergies Allergy/AdvReac Type Severity Reaction Status Date / Time latex Allergy Mild Skin Verified 02/10/25 10:28 breaks out procaine AdvReac Severe Tachycardia Verified 02/10/25 10:28 Review of Systems Review of Systems: CONSTITUTIONAL: Denies malaise, chills, sweats, or fever. EYES: Denies visual changes, redness, or discharge. ENT: Reports rhinorrhea, congestion, your pressure. Denies sinus pain, otalgia or sore throat. CARDIOVASCULAR: Denies chest pain, palpitations, or edema. RESPIRATORY: Denies cough or dyspnea. GASTROINTESTINAL: Denies nausea, vomiting, diarrhea SKIN: Denies rash or itching. MUSCULOSKELETAL: Denies myalgia. NEUROLOGIC: Denies numbness, weakness, or headache. All systems reviewed & are unremarkable except as noted in HPI and below PMFSH Past Medical History Medical History (Updated 02/10/25 @ 10:45 by Lida Vázquez NP) Hospital discharge follow-up Dizziness Gait instability Weakness Spinal stenosis Facial fracture Head injury Right hip pain Back Pain Osteoarthritis of right hip Leukocytopenia Dysuria Urinary retention Hypomagnesemia Chronic sinusitis Elevated liver enzymes Abnormal LFTs Hyponatremia Chest pain Heart palpitations Palpitations Elevated brain natriuretic peptide (BNP) level Syncope History of fracture of patella History of squamous cell carcinoma Patella fracture Ankle fracture Acute UTI Colon cancer screening Constipation History of stillbirth Hernia Rectal Prediabetes Chicken pox Osteoarthritis Allergies Vitamin deficiency Anemia Sciatica Multiple sclerosis Hypertension Surgical History Surgical History History of right hip replacement (~06/2022) History of permanent cardiac pacemaker placement S/P ORIF (open reduction internal fixation) fracture Patella History of removal of pigmented skin lesion Status post tonsillectomy Previous back surgery Spinal decompression surgery 04/2019 H/O: hysterectomy Family History Family History Father Congestive heart failure Hypertension Mother Family history of malignant neoplasm of ovary Myocardial infarction Sibling H/O gastric bypass Malignant neoplasm of prostate Cerebrovascular accident Daughter Francesco's disease Other Obstructive sleep apnea Social History Social History Social History: Lives alone. She is . She has 2 children. Her daughter is a durable power commercial litigation attorney for healthcare. The patient will allow herself to be a full code but does not want to be in a vegetative state. 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 Lifelong nonsmoker. Does not use any alcohol marijuana or illicit drugs. Code status full code Caffeine- coffee daily Smoking status: Never smoker Second hand tobacco smoke exposure: No Alcohol intake: current Alcohol use details: occasionally Substance use: never Substance use type: does not use Do You Feel Safe in your Home?: Yes Lack of Transportation: No Lack of Food: Never True Current Housing: I Have Housing Concerned About Future Housing: No Difficulty Paying Gas/Electric Bills: No Difficulty Paying for Meds: No Currently Unemployed: No Education: Associate Degree Difficulty w/ Childcare or Family Care: No Living arrangements: alone Gender identity (if verbalized by the patient): Female Spiritual care concerns: No Comments At time of signature, agree with nursing past medical, surgical, social and family history. There is no relevant family history pertinent to the presenting complaint Exam Narrative: GENERAL: Well-appearing, well-nourished, and in no acute distress. HEAD: Normocephalic, atraumatic. EYES: PERRLA, sclera clear, and EOMI. No nystagmus. ENT: Nares clear. Mucous membranes moist. TM pearly marrero with dull light reflex bilaterally; no tragal tenderness. Oropharynx without erythema or lesions. Tonsils not enlarged and without exudate. NECK: Supple. CHEST: No respiratory distress. Clear to auscultation. No bony deformities, no asymmetry. Speaks in full sentences. HEART: Regular rate and rhythm. No murmur heard. Normal peripheral pulses. EXTREMITIES: Normal range of motion. No edema. Normal strength and sensation. SKIN: Warm, dry, no visible rash. NEURO: Alert and oriented x3. No focal deficits. Cranial nerves II through XII grossly intact PSYCH: Normal mood and affect Course Course Emergency Course: Patient is aware of diagnosis, understands and agrees to treatment plan. Anticipatory guidance given. Patient agrees to follow-up as directed and is aware of reasons to seek care at the emergency department. Portions of this record may have been created with voice recognition software Level of Care: Express Care Visit Vital Signs Vital signs: Reviewed. Medical Decision Making MDM Narrative Medical decision making narrative: The patient was evaluated by myself in the express care. History is obtained from patient who is an independent historian and physical exam was performed.? Available medical records were reviewed at this time. ? Exam findings show no acute concerns or changes; patient is non-toxic appearing and is in no distress. Patient is appropriate for outpatient treatment and follow-up. ? I have evaluated and discussed social determinants of health with the patient that could potentially impact subsequent diagnosis and treatment plans. ? Differential diagnosis and treatment plan were discussed with the patient. Patient agrees with discussion and after shared medical decision making agrees with plan of care. All questions were answered to the patient's satisfaction. Critical Care Time Critical Care Time Critical Care Time: No Discharge Plan Discharge Clinical Impression: Viral sinusitis Patient Disposition: Home Condition: Stable Instructions: Sinusitis (ED) Additional Instructions: Symptomatic treatment of a sinus infection aims to relieve symptoms. These treatments do not shorten the duration of illness. Nonprescription pain medications, such as acetaminophen (eg, Tylenol) or ibuprofen (eg, Motrin, Advil), are recommended for pain. Flushing the nose and sinuses with a saline solution several times per day has been proven to decrease pain associated with congestion and shorten the duration of symptoms. Nasal steroids (such as Flonase, 2 sprays in each nostril daily) can help to reduce swelling inside the nose, usually within two to three days. These drugs have few side effects and relieve symptoms in most people. Oral decongestants (pseudoephedrine and phenylephrine) may be helpful if you have associated symptoms of ear pain or fullness. Nasal decongestant sprays, including oxymetazoline (Afrin) and phenylephrine (Yohannes-Synephrine), can be used to temporarily treat congestion. However, these sprays should not be used for more than two to three days due to the risk of rebound congestion (when the nose becomes congested constantly unless the medication is used repeatedly), possible addiction, and long-term consequences of frequent use, including persistent nasal dryness and crusting, which is very difficult to treat once it has developed. Medications to thin secretions (such as guaifenesin) may help to clear mucus. Please follow-up with your primary care doctor in the next 1-2 days. If you cannot follow-up with your primary care doctor please go to the ED for any urgent issues. If you have any worsening of symptoms or any other concerns please go to the ED immediately. Patient Language: New Zealander Prescriptions: New pseudoephedrine HCl [12 Hour Decongestant] 120 mg tablet extended release 120 mg PO Q12H PRN (Reason: nasal congestion) Qty: 20 0RF No Action baclofen 10 mg tablet 10 mg PO TID acetaminophen [Tylenol Extra Strength] 500 mg tablet 500 mg PO Q6H PRN dofetilide [Tikosyn] 250 mcg capsule 250 mcg PO Q12H cholecalciferol (vitamin D3) 25 mcg (1,000 unit) capsule 25 mcg PO DAILY amitriptyline 10 mg tablet 10 mg PO QHS Rx Instructions: Take 10-20mg QHS PRN atorvastatin 40 mg tablet 40 mg PO QHS Qty: 90 3RF cetirizine [Zyrtec] 10 mg Tablet 10 mg PO DAILY PRN (Reason: Allergy Symptoms) metoprolol tartrate 50 mg tablet 50 mg PO BID Xarelto 20 mg tablet 20 mg PO QNOON lisinopril 40 mg tablet 40 mg PO DAILY Qty: 90 1RF Follow-up/Referrals: Cielo George FNP-C [Primary Care Provider, Internal Medicine] Time of Disposition: 10:46
[2025-02-10 10:33] VITALS: BP 174/86; PULSE 60; RESP 16; TEMP 36.2; O2SAT 100
== END 2025-02-10 10:50 | disposition home or self-care (01) ==
PROVIDERS: Emergency Provider Nurse Practitioner; PCP Clinical Nurse Specialist
DX: J32.9 Chronic sinusitis, unspecified (principal); G35 Multiple sclerosis; I10 Essential (primary) hypertension; R73.03 Prediabetes; M16.11 Unilateral primary osteoarthritis, right hip; M48.00 Spinal stenosis, site unspecified; Z85.828 Personal history of other malignant neoplasm of skin
CPT/HCPCS: 99213; G0463

== ENCOUNTER 2025-04-26 10:18 | Outpatient (CLI) | payer MEDICARE, OTHER, SELFPAY ==
--- NOTE | ~2025-04-26 | CT_ITS ---
CTA CHEST ABDOMEN PELVIS CLINICAL HISTORY: Thoracic aortic ectasia . COMPARISON: CT abdomen pelvis 12/22/2020 TECHNIQUE: Helical CT performed from thoracic inlet to symphysis pubis 100 mL Omnipaque 350 Coronal, sagittal reformats. Multiplanar MIPS CT images acquired with automatic exposure control for dose reduction DLP: 695 mGy-cm FINDINGS: CHEST- Thoracic Aorta: No dissection. No aneurysm. Pulmonary arteries: Normal caliber. Lungs/Pleura: Hyperinflation. The Biapical scarring. A few scattered micronodules. Heart: Unremarkable. Tracheobronchial tree: Patent. Nodes: No enlarged nodes. Bones: No acute bony abnormality. Soft tissues: Unremarkable. ABDOMEN/PELVIS- CTA Abdominal aorta: No aneurysm or dissection. Common iliac arteries: Patent. External iliac arteries: Patent. Hypogastric arteries: Patent. CFAs: Patent. Proximal visualized SFAs and profundas: Patent. Celiac: Patent. SMA: Patent. [place]: Patent. Renal arteries: Patent. NON-CTA Liver: Steatosis. Gallbladder: Unremarkable. Spleen: Unremarkable. Pancreas: Side branch IPMT along body. Adrenal glands: Unremarkable. Kidneys: Right kidney- No hydronephrosis. No renal stones. Left kidney- No hydronephrosis. No renal stones. Distal esophagus/stomach: Unremarkable. Small bowel loops: Normal caliber and wall thickness. Colon: Normal caliber and wall thickness. Normal RLQ appendix. Nodes: No enlarged nodes. Peritoneum: No ascites. No free air. Urinary bladder: Unremarkable. Uterus: Removed. Adnexa: No masses. Bones: No acute bony abnormality. Grade 2 anterolisthesis L4 on 5. Soft tissues: Unremarkable. IMPRESSION: CHEST- 1. No acute cardiopulmonary findings. 2. No thoracic aortic aneurysm or dissection. ABDOMEN/PELVIS- 1. No acute abdominopelvic findings. 2. No abdominal aortic aneurysm or dissection. Reviewed, dictated and finalized at location [facility]
[2025-04-26 10:32] LABS: Estimated Glomerular Filt Rate 53
== END 2025-04-26 10:19 | disposition home or self-care (01) ==
LOC: MICIMG 10:19
PROVIDERS: PCP Clinical Nurse Specialist; Visit Provider Clinical Nurse Specialist
DX: I77.810 Thoracic aortic ectasia (principal)
CPT/HCPCS: 71275; 74174; Q9967